=== PATIENT | male | born 1955 | race Caucasian/White ===

== ENCOUNTER 2016-12-19 10:18 | Inpatient (IN) ==
--- NOTE | 2016-12-19 10:53 | Emergency Department Note ---
START Narrative - START START: 61-year-old male presents to the emergency department with complaint of difficulty in breathing. Patient states that this began last evening and has been progressively worsening. He denies any significant chest pain. He does state that he has felt palpitations. Patient has had previous heart surgery and currently has a pacemaker. I briefly examined this patient and he is in no acute distress. EKG is unchanged. Labs and x-ray have been ordered.
[2016-12-19 10:58] LABS: Basophils # 0.1 K/mcL (0.0-0.2); Basophils % 0.4 %; Eosinophils % 0.1 %; Hematocrit 44.1 % (37.5-50.1); Hemoglobin 14.3 g/dL (12.9-16.9); Immature Granulocytes % 0.9 % (0-4); Lymphocytes % 7.1 %; Mean Corpuscular HGB Conc 32.4 g/dL (31.6-35.5); Mean Corpuscular Hemoglobin 29.7 pg (28.0-33.3); Mean Corpuscular Volume 91.5 fL (83.0-100.0); Mean Platelet Volume 10.4 fL (9.4-12.4); Monocytes # 0.8 K/mcL (0.0-1.3); Monocytes % 5.8 %; Neutrophils # 11.8 K/mcL (1.6-8.9); Platelet Count 331 K/mcL (140-400); Red Blood Count 4.82 M/mcL (4.19-5.50); Red Cell Distribution Width 14.6 % (11.5-14.5); Segmented Neutrophils % 85.7 %
[2016-12-19 11:04] LABS: INR 2.8
[2016-12-19] MEDS ORDERED: Ipratropium/Albuterol Neb 3 ML IH ONE (11:09)
[2016-12-19 11:15] LABS: Albumin 3.8 g/dL (3.5-5.0); Albumin/Globulin Ratio 0.7 (1.1-2.2); Bilirubin,Direct 0.4 mg/dL (0.0-0.5); Bilirubin,Indirect 0.4 mg/dL (0.0-1.2); Bilirubin,Total 0.8 mg/dL (0.2-1.2); Calcium 9.8 mg/dL (8.6-10.8); Globulin 5.1 g/dL (2.4-3.5); Potassium 4.4 mEq/L (3.5-4.5); Total Protein 8.9 g/dL (6.0-8.3)
[2016-12-19] MEDS ORDERED: Furosemide 40 MG/4 ML VIAL IVP ONE (11:36)
--- NOTE | 2016-12-19 11:40 | Emergency Department Note ---
Disposition Clinical Impression: Acute exacerbation of chronic obstructive airways disease, Acute on chronic combined systolic and diastolic CHF (congestive heart failure) Disposition: Admitted As Inpatient Condition: Fair Time of Disposition: 11:51 SOB HPI - General Chief Complaint: ED Shortness of Breath/Dyspnea Stated Complaint: BONI Time Seen by Provider: 12/19/16 10:50 Source: patient Limitations: no limitations Nursing Notes Reviewed: Yes Vital Signs Reviewed: Yes - History of Present Illness Patient presents to the ED with the chief complaint of shortness of breath, cough and chest pain. Patient has a history of CHF and COPD. States that for the last month he has been having gradually increasing shortness breath. He has had a productive white cough that has been treated with antibiotics off and on by his primary care physician without relief. He is having increasing exertional dyspnea, bilateral, symmetric leg edema and intermittent chest discomfort. He has had several bypass surgeries and multiple stents with his most recent in 2009. States his chest pain is not his anginal equivalent, but is more a heaviness from difficulty breathing. He has had a significant decrease in his functional capacity. No fever but has had some chills. No abdominal pain, nausea, vomiting or diarrhea. No rash. - Related Data Home Medications Medication Instructions Recorded Confirmed Amiodarone [Cordarone] 200 mg PO DAILY 09/06/15 12/19/16 Insulin Regular U-500 [HumuLIN R 0 unit SQ AD MDD Per Pump 09/06/15 12/19/16 U-500] Levothyroxine [Synthroid] 50 mcg PO HS 09/06/15 12/19/16 Metoprolol Succinate 100 mg PO DAILY 09/06/15 12/19/16 Nitroglycerin [Nitrostat] 0.4 mg SL Q5M PRN 09/06/15 12/19/16 Oxygen 2 l NS AD 09/06/15 12/19/16 Warfarin [Coumadin] 5 mg PO SUMOWEFRSA 09/06/15 12/19/16 Lisinopril [Zestril] 5 mg PO DAILY 11/13/15 12/19/16 Warfarin [Coumadin] 7.5 mg PO TUTH 11/13/15 12/19/16 Albuterol Sulfate [Albuterol 2 puff IH Q6HR PRN 03/14/16 12/19/16 Inhaler] Torsemide 100 mg PO BID 03/14/16 12/19/16 HYDROcodone/Acet 10/325 mg [Eunice 1 tab PO BID PRN 12/19/16 12/19/16 10-325 mg] Tamsulosin [Flomax] 0.4 mg PO DAILY 12/19/16 12/19/16 Previous Rx's Medication Instructions Recorded Aspirin 81 mg PO DAILY 30 Days 11/16/15 Budesonide/Formoterol 80/4.5 2 puff IH BIDR #1 inhaler 11/16/15 [Symbicort 80/4.5] Allergies Allergy/AdvReac Type Severity Reaction Status Date / Time metformin Allergy Hives Verified 12/19/16 10:37 pioglitazone [From Actos] Allergy Hives Verified 12/19/16 10:37 trazodone Allergy Hives Verified 12/19/16 10:37 All systems ED: reviewed and negative except as stated. Constitutional: Reports: chills Cardiovascular: Reports: chest pain, palpitations, dyspnea on exertion, orthopnea, edema Respiratory: Reports: cough, dyspnea Gastrointestinal: Denies: vomiting Musculoskeletal: Denies: back pain Past Medical History - Past Medical History Attestation: Yes The following information was validated with the patient. Source: patient Medical history: Reports: atrial fibrillation, cardiomyopathy, CHF, COPD, coronary artery disease, diabetes, hyperlipidemia, hypertension Surgical history: Reports: angioplasty/stent, coronary bypass (CABG), pacemaker/ AICD Psychiatric history: Reports: no psych history - Social History Smoking Status: Current every day smoker Smokeless Tobacco Status: No Alcohol use: Reports: none Drug use: Reports: none Physical Exam - General Limitations: no limitations General appearance: alert, in no apparent distress - Head Head exam: atraumatic, normocephalic, normal inspection - Eye Eye exam: Present: normal appearance, PERRL, EOMI - ENT ENT exam: normal exam, normal oropharynx, mucous membranes moist - Neck Neck exam: Present: normal inspection, full ROM, trachea midline - Chest Chest inspection: Present: normal inspection, symmetric chest wall rise - Respiratory Respiratory exam: Present: respiratory distress (mild tachypnea ), wheezes, other (scattered rales ). Absent: normal lung sounds bilaterally, accessory muscle use - Cardiovascular Cardiovascular exam: Present: regular rate, normal rhythm - Abdominal Exam Abdominal exam: Present: soft, Non-Tender, other (obese). Absent: tenderness, distention, guarding, rebound, rigidity - Extremities Exam Extremities exam: Present: normal inspection, full ROM. Absent: tenderness, pedal edema Course Course Narrative: Patient presenting with CHF and COPD exacerbation. On Coumadin for paroxysmal A. fib, has a pacemaker, no acute distress, but does appear to be an exacerbation. He does not need BiPAP or nitroglycerin this time. Will diurese with Lasix and admitted to the hospitalist service. Vital Signs Temperature 98.1 F 12/19/16 10:33 Pulse Rate 82 12/19/16 10:33 Respiratory Rate 14 12/19/16 10:33 Blood Pressure 101/77 12/19/16 10:33 O2 Sat by Pulse Oximetry 99 12/19/16 10:33 Temperature 97.9 F 12/19/16 19:12 Pulse Rate 80 12/19/16 19:12 Respiratory Rate 16 12/19/16 19:12 Blood Pressure 108/69 12/19/16 19:12 O2 Sat by Pulse Oximetry 100 12/19/16 19:12 Oxygen Delivery Oxygen Delivery Room Air Shortness of Breath/Dyspnea - Medical Records Medical records reviewed: Yes I reviewed the patient's medical records. - Lab Data Lab results reviewed: Yes I reviewed the patient's lab results. Result diagrams: 12/19/16 10:54 12/19/16 10:54 Lab Results 12/19/16 12/19/16 12/19/16 Range/Units 10:54 10:54 10:54 WBC 13.8 H (4.3-11.1) K/mcL RBC 4.82 (4.19-5.50) M/mcL Hgb 14.3 (12.9-16.9) g/dL Hct 44.1 (37.5-50.1) % MCV 91.5 (83.0-100.0) fL MCH 29.7 (28.0-33.3) pg MCHC 32.4 (31.6-35.5) g/dL RDW 14.6 H (11.5-14.5) % Plt Count 331 (140-400) K/mcL MPV 10.4 (9.4-12.4) fL Immature Gran % 0.9 (0-4) % Seg Neutrophils % 85.7 % Lymphocytes % 7.1 % Monocytes % 5.8 % Eosinophils % 0.1 % Basophils % 0.4 % Neutrophils # 11.8 H (1.6-8.9) K/mcL Lymphocytes # 1.0 (0.6-4.6) K/mcL Monocytes # 0.8 (0.0-1.3) K/mcL Eosinophils # 0.0 (0.0-0.6) K/mcL Basophils # 0.1 (0.0-0.2) K/mcL PT 31.0 H (9.4-12.1) Seconds INR 2.8 APTT 38.0 H (26.0-36.0) Seconds Sodium 133 L (136-145) mEq/L Potassium 4.4 (3.5-4.5) mEq/L Chloride 98 (98-109) mEq/L Carbon Dioxide 22 (19-29) mEq/L BUN 54 H (8-26) mg/dL Creatinine 1.91 H (0.72-1.25) mg/dL Est GFR ( Amer) 43 L (> 60) Est GFR (Non-Af Amer) 36 L (> 60) BUN/Creatinine Ratio 28 H (6-26) Glucose 110 H (70-99) mg/dL Calculated Osmolality 291 (280-300) Lactic Acid (0.5-2.2) mmol/L Calcium 9.8 (8.6-10.8) mg/dL Total Bilirubin 0.8 (0.2-1.2) mg/dL Direct Bilirubin 0.4 (0.0-0.5) mg/dL Indirect Bilirubin 0.4 (0.0-1.2) mg/dL AST 17 (5-34) Units/L ALT 19 (0-55) Units/L Alkaline Phosphatase 112 (38-126) Units/L Troponin I (0-0.03) ng/mL B-Natriuretic Peptide (0-100) pg/mL Serum Total Protein 8.9 H (6.0-8.3) g/dL Albumin 3.8 (3.5-5.0) g/dL Globulin 5.1 H (2.4-3.5) g/dL Albumin/Globulin Ratio 0.7 L (1.1-2.2) 12/19/16 12/19/16 12/19/16 Range/Units 10:54 10:54 11:13 WBC (4.3-11.1) K/mcL RBC (4.19-5.50) M/mcL Hgb (12.9-16.9) g/dL Hct (37.5-50.1) % MCV (83.0-100.0) fL MCH (28.0-33.3) pg MCHC (31.6-35.5) g/dL RDW (11.5-14.5) % Plt Count (140-400) K/mcL MPV (9.4-12.4) fL Immature Gran % (0-4) % Seg Neutrophils % % Lymphocytes % % Monocytes % % Eosinophils % % Basophils % % Neutrophils # (1.6-8.9) K/mcL Lymphocytes # (0.6-4.6) K/mcL Monocytes # (0.0-1.3) K/mcL Eosinophils # (0.0-0.6) K/mcL Basophils # (0.0-0.2) K/mcL PT (9.4-12.1) Seconds INR APTT (26.0-36.0) Seconds Sodium (136-145) mEq/L Potassium (3.5-4.5) mEq/L Chloride (98-109) mEq/L Carbon Dioxide (19-29) mEq/L BUN (8-26) mg/dL Creatinine (0.72-1.25) mg/dL Est GFR ( Amer) (> 60) Est GFR (Non-Af Amer) (> 60) BUN/Creatinine Ratio (6-26) Glucose (70-99) mg/dL Calculated Osmolality (280-300) Lactic Acid 1.7 (0.5-2.2) mmol/L Calcium (8.6-10.8) mg/dL Total Bilirubin (0.2-1.2) mg/dL Direct Bilirubin (0.0-0.5) mg/dL Indirect Bilirubin (0.0-1.2) mg/dL AST (5-34) Units/L ALT (0-55) Units/L Alkaline Phosphatase (38-126) Units/L Troponin I 0.03 (0-0.03) ng/mL B-Natriuretic Peptide 933 H (0-100) pg/mL Serum Total Protein (6.0-8.3) g/dL Albumin (3.5-5.0) g/dL Globulin (2.4-3.5) g/dL Albumin/Globulin Ratio (1.1-2.2) - Radiology Data Radiology results reviewed: Yes I reviewed the patient's radiology results. Chest X-Ray 12/19/16 10:50 IMPRESSION: 1. Cardiomegaly with mild vascular congestion. D/ / Keegan Hunt MD / Keegan Hunt MD Interpreting Provider: Keegan Hunt MD - EKG Data EKG attestation: Yes I reviewed and interpreted this EKG. EKG results narrative: Patient's rhythm, rate 80, QRS 219, QTC 554 Attestation Statement - Attestation Attestation: I examined this patient and my medical decision-making was reviewed with the Resident Physician. I agree with the documented findings, disposition and treatment plan as described except to the extent set forth below. CHF and COPD exacerbation. Steroids, DuoNeb, antibiotics, diuresis. Admission for further evaluation. I spent greater than 35 minutes of critical care time resuscitating this acutely ill male suffering from hypoxia. He required multiple medication interventions. This is excluding billable procedures.
[2016-12-19] MEDS ORDERED: Furosemide 20 MG/2 ML VIAL IVP ONE (11:41)
[2016-12-19] MEDS ORDERED: methylPREDNISolone 125 MG/2 ML VIAL IVP ONE (11:49)
[2016-12-19] MEDS ORDERED: Acetaminophen 325 MG TABLET PO PRN (13:44)
[2016-12-19] MEDS ORDERED: Naloxone 0.4 MG/ML INJ IVP PRN (13:44)
[2016-12-19] MEDS ORDERED: *HR* Morphine 2 MG/ML SYRINGE IVP PRN (13:44)
[2016-12-19] MEDS ORDERED: Ondansetron 4 MG/2 ML VIAL IVP PRN (13:44)
[2016-12-19] MEDS ORDERED: Nitroglycerin 0.4 MG TAB.SUBL SL PRN (13:47)
[2016-12-19] MEDS ORDERED: D5% in Water 1,000 ML IVC PRN (13:49)
[2016-12-19] MEDS ORDERED: Dextrose Gel 15 GM PO PRN ×2 (13:49)
[2016-12-19] MEDS ORDERED: *HR* Dextrose 50 % in Water (Syg) 50 ML SYRINGE IVP PRN (13:49)
[2016-12-19] MEDS ORDERED: NON-FORMULARY MEDICATION 1 EACH EACH (Oxygen [Oxygen] 2 L) NS SCH (14:00)
--- NOTE | 2016-12-19 15:10 | Internal Med History&Physical ---
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 no infiltrates noticed no need of abx (2) Acute on chronic systolic (congestive) heart failure Current visit: No Status: Acute Reviewed his 2D Echo from 03/2016 showing LVEF 25 % Severe ischemic cardiomyopathy will repeat another 2 D Echo now started him IV Lasix 40mg BID Strict I & O Cont home med B gemini and ACEI (3) Atrial fibrillation Current visit: No Status: Chronic Rate controlled with Amiodarone and Metoprolol on COumadin for anticoag Qualifiers: Atrial fibrillation type: paroxysmal Qualified Code(s): I48.0 - Paroxysmal atrial fibrillation (4) CAD (coronary artery disease) Current visit: No Status: Chronic resumed home meds Qualifiers: Coronary Disease-Associated Artery/Lesion type: unspecified vessel or lesion type [place] vs. transplanted heart: [place] heart Associated angina: without angina Qualified Code(s): I25.10 - Atherosclerotic heart disease of [place] coronary artery without angina pectoris (5) Hypothyroidism Current visit: No Status: Chronic resumed home med Qualifiers: Hypothyroidism type: unspecified Qualified Code(s): E03.9 - Hypothyroidism , unspecified (6) DM (diabetes mellitus) Current visit: No Status: Chronic on ISS + Levemir will check HbA1C in AM Qualifiers: Diabetes mellitus type: type 2 Diabetes mellitus complication status: with unspecified complications Diabetes mellitus skilled nursing insulin use: with senior animator use Qualified Code(s): E11.8 - Type 2 diabetes mellitus with unspecified complications (7) DVT prophylaxis Current visit: No Status: Acute on COumadin (8) Obesity, Class III, BMI 40-49.9 (morbid obesity) Current visit: No Status: Acute Counseled to loose weight (9) CKD (chronic kidney disease) Current visit: No Status: Chronic stable Cr Qualifiers: Chronic kidney disease stage: stage 3 (moderate) Qualified Code(s): N18.3 - Chronic kidney disease, stage 3 (moderate) Internal Medicine - H&P: HPI Chief complaint: Shortness of breath Admitted From: Emergency Dept Plans for Post Hospital Care: Home History of present illness: Mr. Lance is a 61 year old male with known PMH of Severe systolic CHF / Ischemic cardiomyopathy, chronic heavy smoker, COPD and chronic hypoxic respiratory failure with home O2 dependent at 2 lit, CAD s/p CABG presnted to ER c/o worsening shortness of breath with cough and yellowish expectoration. He denied any CP . No abd pain. No nausea / vomiting. Past Med Surg Social Fam HX - Past Medical History Medical history: atrial fibrillation, cardiomyopathy, CHF, COPD, coronary artery disease, diabetes, hyperlipidemia, hypertension Psychiatric history: no psych history - Past Surgical History Surgical History: angioplasty/stent, coronary bypass (CABG), pacemaker/AICD - Social History Smoking Status: Current every day smoker Smokeless Tobacco Status: No Alcohol use: none Drug use: none - Family History Father Hx Family Cardiac Disorders: Yes (CHF, multiple heart attacks) Internal Medicine - H&P: Meds Amiodarone [Cordarone] 200 mg PO DAILY 09/06/15 [History] Insulin Regular U-500 [HumuLIN R U-500] 0 unit SQ AD MDD Per Pump 09/06/15 [ History] Levothyroxine [Synthroid] 50 mcg PO HS 09/06/15 [History] Metoprolol Succinate 100 mg PO DAILY 09/06/15 [History] Nitroglycerin [Nitrostat] 0.4 mg SL Q5M PRN 09/06/15 [History] Oxygen 2 l NS AD 09/06/15 [History] Warfarin [Coumadin] 5 mg PO SUMOWEFRSA 09/06/15 [History] Lisinopril [Zestril] 5 mg PO DAILY 11/13/15 [History] Warfarin [Coumadin] 7.5 mg PO TUTH 11/13/15 [History] Aspirin 81 mg PO DAILY 30 Days 11/16/15 [Rx] Budesonide/Formoterol 80/4.5 [Symbicort 80/4.5] 2 puff IH BIDR #1 inhaler 11/15 [Rx] Albuterol Sulfate [Albuterol Inhaler] 2 puff IH Q6HR PRN 03/14/16 [History] Torsemide 100 mg PO BID 03/14/16 [History] HYDROcodone/Acet 10/325 mg [Bishop 10-325 mg] 1 tab PO BID PRN 12/19/16 [History] Tamsulosin [Flomax] 0.4 mg PO DAILY 12/19/16 [History] 3 Allergy/AdvReac Type Severity Reaction Status Date / Time metformin Allergy Hives Verified 12/19/16 10:37 pioglitazone [From Actos] Allergy Hives Verified 12/19/16 10:37 trazodone Allergy Hives Verified 12/19/16 10:37 All Systems PM: A 10-system review of systems was performed and is negative for pertinent findings except as documented above in the HPI. Review of systems: All the systems are reviewed everything is benign except the systems and symptoms I mentioned in the history of present illness - Constitutional Vitals: Temp Pulse Resp BP Pulse Ox 97.6 F 87 14 95/56 93 12/19/16 13:05 12/19/16 13:05 12/19/16 13:05 12/19/16 13:05 12/19/16 13:30 General appearance: Present: mild distress, A&O X 3, answers questions appropriately - Head Head exam: Present: atraumatic, normal inspection - Respiratory Respiratory exam: Present: decreased breath sounds, respiratory distress (mild) , wheezes. Absent: rales, rhonchi - Cardiovascular Cardiovascular exam: Present: gallop, RRR, +S1, +S2. Absent: systolic murmur - GI/Abdominal GI/Abdominal exam: Present: normal bowel sounds, soft. Absent: rebound, rigid, tenderness - Extremities Exam Extremities exam: Present: pedal edema (2 +). Absent: calf tenderness, tenderness - Neurological Exam Neurological exam: Present: alert, oriented X3 - Psychiatric Psychiatric exam: Present: normal affect, normal mood Internal Med - H&P Results - Labs CBC & Chem 7: 12/19/16 10:54 12/19/16 10:54 Labs: Cardiac Enzymes 12/19/16 Range/Units 13:55 Troponin I 0.02 (0-0.03) ng/mL
[2016-12-19] MEDS: Budesonide/Formoterol 80/4.5 MDI IH SCH ×2 (15:23→20:15)
[2016-12-19] MEDS: Ipratropium/Albuterol Neb 3 ML IH SCH ×3 (15:31→23:17)
[2016-12-19] MEDS: *HR* HYDROcodone/Acet 5/325 mg TABLET PO PRN (17:43)
[2016-12-19] MEDS: Insulin LISPRO 300 UNITS/3 ML VIAL SQ SCH (17:44)
[2016-12-19] MEDS: Furosemide 40 MG/4 ML VIAL IVP SCH (17:44)
[2016-12-19] MEDS: MethylPREDNISolone 40 MG/ML VIAL IVP SCH (17:45)
[2016-12-19] MEDS ORDERED: *HR* Warfarin 7.5 MG TABLET PO SCH (18:00)
[2016-12-19] MEDS ORDERED: Warfarin perPT PO PRN (18:00)
--- NOTE | 2016-12-19 18:11 | Electrocardiograph Report ---
[place] [id number] Test Date: 2016-12-19 Pat Name: Solitario Lance Department: 104 Room: [facility] Gender: M Public Address Technician: MSC : [id number] Requested By: Joey Goodrich Order Number: [id number] Reading MD: Zaira Pop Measurements Intervals [place] Rate: 80 P: IA: 0 QRS: 263 QRSD: 219 T: 71 QT: 518 QTc: 554 Interpretive Statements ELECTRONIC VENTRICULAR PACEMAKER ABNORMAL RHYTHM ECG Electronically Signed On 12-19-2016 18:09:52 EDT by Zaira Pop
[2016-12-19] MEDS ORDERED: Insulin LISPRO 300 UNITS/3 ML VIAL SQ SCH (21:00)
[2016-12-19] MEDS: Famotidine 20 MG TABLET PO SCH (21:54)
[2016-12-20] MEDS: MethylPREDNISolone 40 MG/ML VIAL IVP SCH ×4 (00:30→16:45)
[2016-12-20] MEDS: Ipratropium/Albuterol Neb 3 ML IH SCH ×5 (04:15→20:33)
[2016-12-20 06:15] LABS: INR 3.5; Prothrombin Time 38.8 Seconds (9.4-12.1)
[2016-12-20 06:36] LABS: Basophils % 0.2 %; Hematocrit 43.3 % (37.5-50.1); Hemoglobin 14.1 g/dL (12.9-16.9); Lymphocytes # 0.7 K/mcL (0.6-4.6); Lymphocytes % 5.8 %; Mean Corpuscular HGB Conc 32.6 g/dL (31.6-35.5); Mean Corpuscular Hemoglobin 29.7 pg (28.0-33.3); Mean Corpuscular Volume 91.4 fL (83.0-100.0); Mean Platelet Volume 10.9 fL (9.4-12.4); Monocytes # 0.3 K/mcL (0.0-1.3); Monocytes % 2.8 %; Neutrophils # 10.5 K/mcL (1.6-8.9); Platelet Count 309 K/mcL (140-400); Red Blood Count 4.74 M/mcL (4.19-5.50); Red Cell Distribution Width 14.5 % (11.5-14.5); Segmented Neutrophils % 89.2 %
[2016-12-20 06:37] LABS: Calcium 9.7 mg/dL (8.6-10.8); Magnesium 2.4 mg/dL (1.6-2.6); Potassium 4.8 mEq/L (3.5-4.5)
[2016-12-20] MEDS: Insulin LISPRO 300 UNITS/3 ML VIAL SQ SCH ×3 (07:54→16:45)
[2016-12-20] MEDS: Aspirin 81 MG TAB.CHEW PO SCH (08:38)
[2016-12-20] MEDS: Furosemide 40 MG/4 ML VIAL IVP SCH ×2 (08:38→16:45)
[2016-12-20] MEDS: Famotidine 20 MG TABLET PO SCH ×2 (08:38→20:50)
[2016-12-20] MEDS: *HR* Amiodarone 200 MG TABLET PO SCH (08:38)
[2016-12-20] MEDS: *HR* HYDROcodone/Acet 5/325 mg TABLET PO PRN ×2 (08:38→16:45)
[2016-12-20] MEDS: Metoprolol XL (24 HR) Succ 50 MG TAB.ER.24H PO SCH (08:38)
[2016-12-20] MEDS: Budesonide/Formoterol 80/4.5 MDI IH SCH ×2 (10:13→20:33)
--- NOTE | 2016-12-20 13:39 | Internal Med Progress Note ---
<Alfred Riojas P - Last Filed: 12/20/16 17:39> Date of Encounter: 12/20/16 - Constitutional Vitals: Temp Pulse Resp BP Pulse Ox 97.5 F L 80 20 100/64 100 12/20/16 16:10 12/20/16 16:10 12/20/16 16:10 12/20/16 16:10 12/20/16 16:10 Internal Medicine: Result - Labs CBC & Chem 7: 12/20/16 05:45 12/20/16 05:45 Labs: Short CBC 12/20/16 Range/Units 05:45 WBC 11.8 H (4.3-11.1) K/mcL Hgb 14.1 (12.9-16.9) g/dL Hct 43.3 (37.5-50.1) % Plt Count 309 (140-400) K/mcL Neutrophils # 10.5 H (1.6-8.9) K/mcL BMP 12/20/16 05:45 Sodium 131 L Potassium 4.8 H Chloride 98 Carbon Dioxide 22 BUN 56 H Creatinine 1.86 H Glucose 235 H Calcium 9.7 Cardiac Enzymes 12/19/16 Range/Units 19:11 Troponin I 0.02 (0-0.03) ng/mL - ABG Interpretation ABG results: PT/INR, D-dimer PT 38.8 Seconds (9.4-12.1) H 12/20/16 05:45 Consult Discharge Plan - Plan Referrals: Lilo Beltran MD [Primary Care Provider] - - Attending Attestation I examined this patient and my medical decision-making was reviewed with the Resident Physician. I agree with the documented findings, disposition and treatment plan as described except to the extent set forth below. <Cris Johnson - Last Filed: 12/20/16 18:14> Date of Encounter: 12/20/16 Time of Encounter: 13:39 - Assessment and plan (1) COPD exacerbation Current Visit: No Status: Acute Assessment and plan: Pt taking of nasal cannula without notifying staff States SOB improving. Continue management Counseled pt on importance of compliance of medication (2) Acute on chronic systolic (congestive) heart failure Current Visit: No Status: Acute Assessment and plan: 2D Echo from 03/2016 showing LVEF 25 % Severe ischemic cardiomyopathy Continue medical management and Strict I & O (3) Atrial fibrillation Current Visit: No Status: Chronic Assessment and plan: Rate controlled with Amiodarone and Metoprolol Continue coumadin, per pharmacy protocol Qualifiers: Atrial fibrillation type: paroxysmal Qualified Code(s): I48.0 - Paroxysmal atrial fibrillation (4) Hypothyroidism Current Visit: No Status: Chronic Assessment and plan: Continue home medication Qualifiers: Hypothyroidism type: unspecified Qualified Code(s): E03.9 - Hypothyroidism , unspecified (5) DVT prophylaxis Current Visit: No Status: Acute Assessment and plan: Coumadin (6) DM (diabetes mellitus) Current Visit: No Status: Chronic Assessment and plan: Elevated blood glucose levels, per RN RN notified resident MD approx. 12:00 and 1 PM Basal insulin regimen added with insulin sliding scale Continue hourly accuchecks Qualifiers: Diabetes mellitus type: type 2 Diabetes mellitus complication status: with unspecified complications Diabetes mellitus shelter insulin use: with terminal carman use Qualified Code(s): E11.8 - Type 2 diabetes mellitus with unspecified complications (7) CKD (chronic kidney disease) Current Visit: No Status: Chronic Assessment and plan: Continue to monitor kidney markers BMP for AM Qualifiers: Chronic kidney disease stage: stage 3 (moderate) Qualified Code(s): N18.3 - Chronic kidney disease, stage 3 (moderate) (8) Obesity, Class III, BMI 40-49.9 (morbid obesity) Current Visit: No Status: Acute Assessment and plan: Plan for counseling on importance of weight loss and exercise - Subjective Interval history: The patient took nasal cannula off on own volition, without notifying staff. Resident MD recommended pt wear it continually PM Patient refuses to take IV solumedrol to nurse and to resident MD. - Constitutional Vitals: Temp Pulse Resp BP Pulse Ox 97.6 F 82 18 100/62 98 12/20/16 10:41 12/20/16 10:41 12/20/16 10:41 12/20/16 10:41 12/20/16 10:41 General appearance: Present: mild distress, A&O X 3, morbidly obese, pleasant, answers questions appropriately Exam: speaking without difficulty - Head Head exam: Present: atraumatic, normocephalic - Neck Neck exam general surgery: Present: supple Additional comments: thick neck, no restriction in motion - Respiratory Respiratory exam: Present: decreased breath sounds, wheezes. Absent: accessory muscle use, chest wall tenderness, respiratory distress Additional comments: Nasal cannula off, beside patient on bed - Cardiovascular Cardiovascular exam: Present: distant heart sounds, RRR, +S1, +S2. Absent: rubs , tachycardia - GI/Abdominal GI/Abdominal exam: Present: normal bowel sounds, soft, no peritoneal signs. Absent: distended, tenderness Internal Medicine: Result - Labs CBC & Chem 7: 12/20/16 05:45 12/20/16 05:45 Labs: Short CBC 12/20/16 Range/Units 05:45 WBC 11.8 H (4.3-11.1) K/mcL Hgb 14.1 (12.9-16.9) g/dL Hct 43.3 (37.5-50.1) % Plt Count 309 (140-400) K/mcL Neutrophils # 10.5 H (1.6-8.9) K/mcL BMP 12/20/16 05:45 Sodium 131 L Potassium 4.8 H Chloride 98 Carbon Dioxide 22 BUN 56 H Creatinine 1.86 H Glucose 235 H Calcium 9.7 Cardiac Enzymes 12/19/16 12/19/16 Range/Units 13:55 19:11 Troponin I 0.02 0.02 (0-0.03) ng/mL - ABG Interpretation ABG results: PT/INR, D-dimer PT 38.8 Seconds (9.4-12.1) H 12/20/16 05:45
[2016-12-20] MEDS ORDERED: Insulin DETEMIR 100 UNIT/ML X5UNITS SQ ONE (14:21)
[2016-12-20] MEDS ORDERED: Insulin LISPRO 300 UNITS/3 ML VIAL SQ SCH (14:22)
[2016-12-20] MEDS ORDERED: *HR* Warfarin 5 MG TABLET PO SCH (18:00)
[2016-12-20] MEDS: Insulin DETEMIR 100 UNIT/ML X5UNITS SQ SCH (20:50)
[2016-12-21] MEDS: Ipratropium/Albuterol Neb 3 ML IH SCH ×4 (00:33→11:23)
[2016-12-21] MEDS: MethylPREDNISolone 40 MG/ML VIAL IVP SCH ×3 (00:39→11:44)
[2016-12-21 03:27] LABS: Basophils % 0.1 %; Hematocrit 41.9 % (37.5-50.1); Hemoglobin 13.8 g/dL (12.9-16.9); Immature Granulocytes % 2.1 % (0-4); Lymphocytes # 0.7 K/mcL (0.6-4.6); Mean Corpuscular HGB Conc 32.9 g/dL (31.6-35.5); Mean Corpuscular Hemoglobin 30.3 pg (28.0-33.3); Mean Corpuscular Volume 92.1 fL (83.0-100.0); Mean Platelet Volume 10.6 fL (9.4-12.4); Monocytes % 5.6 %; Neutrophils # 15.3 K/mcL (1.6-8.9); Platelet Count 283 K/mcL (140-400); Red Blood Count 4.55 M/mcL (4.19-5.50); Red Cell Distribution Width 14.6 % (11.5-14.5); Segmented Neutrophils % 88.2 %
[2016-12-21 03:33] LABS: Prothrombin Time 63.8 Seconds (9.4-12.1)
[2016-12-21 03:34] LABS: INR 5.7
[2016-12-21 03:40] LABS: Calcium 9.4 mg/dL (8.6-10.8)
[2016-12-21 03:45] LABS: Potassium 5.2 mEq/L (3.5-4.5)
[2016-12-21] MEDS ORDERED: Saline Nasal Spray 44 ML BOTTLE NS PRN (04:38)
[2016-12-21] MEDS: Budesonide/Formoterol 80/4.5 MDI IH SCH (07:49)
--- NOTE | 2016-12-21 07:55 | Internal Med Progress Note ---
Date of Encounter: 12/21/16 Time of Encounter: 07:56 - Assessment and plan (1) COPD exacerbation Current Visit: No Status: Acute (2) Acute on chronic systolic (congestive) heart failure Current Visit: No Status: Acute (3) Atrial fibrillation Current Visit: No Status: Chronic Qualifiers: Atrial fibrillation type: paroxysmal Qualified Code(s): I48.0 - Paroxysmal atrial fibrillation (4) Hypothyroidism Current Visit: No Status: Chronic Qualifiers: Hypothyroidism type: unspecified Qualified Code(s): E03.9 - Hypothyroidism , unspecified (5) DVT prophylaxis Current Visit: No Status: Acute (6) DM (diabetes mellitus) Current Visit: No Status: Chronic Qualifiers: Diabetes mellitus type: type 2 Diabetes mellitus complication status: with unspecified complications Diabetes mellitus penitentiary insulin use: with penitentiary use Qualified Code(s): E11.8 - Type 2 diabetes mellitus with unspecified complications (7) CKD (chronic kidney disease) Current Visit: No Status: Chronic Qualifiers: Chronic kidney disease stage: stage 3 (moderate) Qualified Code(s): N18.3 - Chronic kidney disease, stage 3 (moderate) (8) Obesity, Class III, BMI 40-49.9 (morbid obesity) Current Visit: No Status: Acute - Subjective Interval history: The patient took nasal cannula off on own volition, without notifying staff. Resident MD recommended pt wear it continually PM Patient refuses to take IV solumedrol to nurse and to resident MD. - Constitutional Vitals: Temp Pulse Resp BP Pulse Ox 97.6 F 80 20 91/60 94 12/21/16 07:27 12/21/16 07:27 12/21/16 07:50 12/21/16 07:27 12/21/16 07:50 General appearance: Present: mild distress, A&O X 3, morbidly obese, pleasant, answers questions appropriately Internal Medicine: Result - Labs CBC & Chem 7: 12/21/16 03:04 12/21/16 03:04 Labs: Short CBC 12/21/16 Range/Units 03:04 WBC 17.4 H (4.3-11.1) K/mcL Hgb 13.8 (12.9-16.9) g/dL Hct 41.9 (37.5-50.1) % Plt Count 283 (140-400) K/mcL Neutrophils # 15.3 H (1.6-8.9) K/mcL BMP 12/21/16 03:04 Sodium 127 L Potassium 5.2 H Chloride 97 L Carbon Dioxide 19 BUN 68 H Creatinine 2.01 H Glucose 224 H Calcium 9.4 - ABG Interpretation ABG results: PT/INR, D-dimer PT 63.8 Seconds (9.4-12.1) H* D 12/21/16 03:04 Consult Discharge Plan - Plan Referrals: Lilo Beltran MD [Primary Care Provider] -
[2016-12-21] MEDS: Insulin LISPRO 300 UNITS/3 ML VIAL SQ SCH ×2 (08:09→11:44)
[2016-12-21] MEDS: Furosemide 40 MG/4 ML VIAL IVP SCH (08:11)
[2016-12-21] MEDS: Insulin DETEMIR 100 UNIT/ML X5UNITS SQ SCH (10:46)
[2016-12-21] MEDS: Famotidine 20 MG TABLET PO SCH (10:50)
[2016-12-21] MEDS: Aspirin 81 MG TAB.CHEW PO SCH (10:51)
[2016-12-21] MEDS: *HR* Amiodarone 200 MG TABLET PO SCH (10:51)
[2016-12-21 11:25] VITALS: BP 92/60
--- NOTE | 2016-12-21 11:36 | Discharge Summary ---
<AlexJohannaCris - Last Filed: 12/21/16 15:18> Date of Encounter: 12/21/16 Time of Encounter: 11:32 - Discharge Diagnosis (1) COPD exacerbation Priority: Primary Status: Resolved (2) Acute on chronic systolic (congestive) heart failure Priority: Primary Status: Resolved (3) Atrial fibrillation Priority: Secondary Status: Chronic Qualifiers: Atrial fibrillation type: chronic Qualified Code(s): I48.2 - Chronic atrial fibrillation (4) Hypothyroidism Priority: Secondary Status: Chronic Qualifiers: Hypothyroidism type: unspecified Qualified Code(s): E03.9 - Hypothyroidism , unspecified (5) DM (diabetes mellitus) Priority: Secondary Status: Chronic Qualifiers: Diabetes mellitus type: type 2 Diabetes mellitus complication status: with unspecified complications Diabetes mellitus termination clerk insulin use: with termination clerk use Qualified Code(s): E11.8 - Type 2 diabetes mellitus with unspecified complications (6) CKD (chronic kidney disease) Priority: Secondary Status: Chronic Qualifiers: Chronic kidney disease stage: stage 3 (moderate) Qualified Code(s): N18.3 - Chronic kidney disease, stage 3 (moderate) (7) Obesity, Class III, BMI 40-49.9 (morbid obesity) Priority: Secondary Status: Chronic (8) DVT prophylaxis Priority: Secondary Status: Acute (9) Tobacco abuse counseling Priority: Secondary Status: Chronic - Discharge Medications Prescriptions: Nicotine Patch [Nicoderm] 21 mg TD DAILY #30 patch.td24 Home Medications: Amiodarone [Cordarone] 200 mg PO DAILY 09/06/15 [History] Levothyroxine [Synthroid] 50 mcg PO HS 09/06/15 [History] Metoprolol Succinate 100 mg PO DAILY 09/06/15 [History] Nitroglycerin [Nitrostat] 0.4 mg SL Q5M PRN 09/06/15 [History] Oxygen 2 l NS AD 09/06/15 [History] Warfarin [Coumadin] 5 mg PO SUMOWEFRSA 09/06/15 [History] Warfarin [Coumadin] 7.5 mg PO TUTH 11/13/15 [History] Aspirin 81 mg PO DAILY 30 Days tab.chew 11/16/15 [Rx] Budesonide/Formoterol 80/4.5 [Symbicort 80/4.5] 2 puff IH BIDR #1 inhaler 11/15 [Rx] Albuterol Sulfate [Albuterol Inhaler] 2 puff IH Q6HR PRN 03/14/16 [History] Torsemide 100 mg PO BID 03/14/16 [History] HYDROcodone/Acet 10/325 mg [[place] 10-325 mg] 1 tab PO BID PRN 12/19/16 [History] Tamsulosin [Flomax] 0.4 mg PO DAILY 12/19/16 [History] Cholecalciferol (D-3) [Vitamin D] 1,000 unit PO DAILY 12/20/16 [History] Insulin Aspart Prot/Insuln Asp [Novolog Mix 70-30 Flexpen Syrn] 40 unit SQ 1700 12/20/16 [History] Insulin Aspart Prot/Insuln Asp [Novolog Mix 70-30 Flexpen Syrn] 60 unit SQ QAM 12/20/16 [History] Meclizine HCl [Verticalm] 25 mg PO DAILY PRN 12/20/16 [History] Lisinopril [Zestril] 5 mg PO DAILY tablet 12/21/16 [Rx] Nicotine Patch [Nicoderm] 21 mg TD DAILY #30 patch.td24 12/21/16 [Rx] Allergies/Adverse Reactions: 3 Allergy/AdvReac Type Severity Reaction Status Date / Time metformin Allergy Hives Verified 12/19/16 10:37 pioglitazone [From Actos] Allergy Hives Verified 12/19/16 10:37 trazodone Allergy Hives Verified 12/19/16 10:37 Procedures/tests Complete & Pending: Chest X-Ray 12/19/16 10:50 IMPRESSION: 1. Cardiomegaly with mild vascular congestion. D/ / Keegan Hunt MD / Keegan Hunt MD Interpreting Provider: Keegan Hunt MD Date of admission: 12/19/16 13:44 Primary care physician: Lilo Beltran, Discharging clinician: Cris Johnson Anticipated date of discharge: 12/21/16 - Patient Status Disposition: Home, Self-Care Condition: Fair Overall status at discharge: patient is progressing back to baseline - Discharge Instructions Instructions: Nicotine (Absorbed through the skin), Diabetes Mellitus Type 2 in Adults (DC), Chronic Obstructive Pulmonary Disease (DC) Follow Up With: Lilo Beltran MD [Primary Care Provider] - 12/25/16 10:15 am Additional Instructions: -Your INR was elevated on your day of discharge. It is expressed as a number without units. Your INR was at 5.7 upon discharge. -The longer it takes the blood to clot, the higher your INR. The target INR range depends upon the clinical situation. In most cases the target INR range will be between 2 and 3. -If the INR is below the target range (ie, under-anticoagulated), there is an increased risk of clotting. On the other hand, if the INR is above the target range (ie, over-anticoagulated), there is an increased risk of bleeding. -Please hold your coumadin for two days and resume your usual dose on Sunday. Additionally, have your INR checked within 3-4 days. -Please resume your home medications. -Please continue to use your oxygen at all times at home. -We discussed the importance of smoking cessation and we have prescribed a nicotine patch for your use. Apply one patch each morning to any non-hairy skin site; rotate the site daily to avoid skin irritation, the most common side effect. -Remove and replace the patch with a new one at bedtime. However, if leaving the patch on overnight is causing the frequently reported side effects of insomnia and vivid dreams, replace the patch the next morning. Smoking cessation rates are similar whether the patch is left on for 24 hours or taken off at night -When the patch is removed at night, substantial plasma levels of nicotine are reached 30 minutes to three hours after a new patch is applied in the morning. When to seek help If there are obvious or subtle signs of bleeding, including the following, please proceed to the emergency room, immediately. -Persistent nausea, stomach upset, or vomiting blood or other material that looks like coffee grounds -Headaches, dizziness, or weakness -Nosebleeds -Dark red or brown urine -Blood in the bowel movement or dark-colored stool -Pain, swelling, or black and purple skin (bruising) -A serious fall or head injury, even if there are no other symptoms It is also important to notify your primary care provider if any of the following occurs: -Bleeding from the gums after brushing the teeth -Swelling or pain at an injection site -Excessive menstrual bleeding or bleeding between menstrual periods -Diarrhea, vomiting, or inability to eat for more than 24 hours -Fever (temperature greater than 100.4F or 38C), which could be a sign of infection that might alter the INR -Are in a car accident, or have another type of serious injury that could cause bleeding -A new medication prescribed by another clinician, because some medications can alter the INR in patients taking warfarin - Diet and Activity Activity: ambulate only with your walker, increase activity as tolerated, wear oxygen at all times Diet: low fat, low cholesterol, low salt diet Interval History: No acute events overnight. When resident MD visited, pt has removed nasal cannula. No difficulty speaking. No SOB. Hospital course: Mr. Lance is a 61 year old male with a medical history atrial fibrillation, cardiomyopathy, CHF, COPD, coronary artery disease, diabetes, hyperlipidemia and hypertension. The patient's surgical history included angioplasty/stent, coronary bypass (CABG), pacemaker/AICD History: Patient presented to the ED with the chief complaint of shortness of breath, cough (yellowish expectoration), exertional dyspnea, bilateral, symmetric leg edema and intermittent chest discomfort. Stated his chest pain was not his anginal equivalent, but is more a heaviness from difficulty breathing. No fever but has had some chills. No abdominal pain, nausea, vomiting or diarrhea. No rash. Inpatient Tests/ Procedures : Pt was on continuous telemetry. Serial troponin levels were drawn and negative x 2. Course: Patient improved with medical management and maintained oxygen saturation above 92%. Regarding co-morbid conditions, patient's scheduled Accuchecks returned with elevated levels periodically over course of hospitalization, that responded to insulin regimen adjustment. Patient was counseled on importance of smoking cessation and sated he was amenable to begin nicotine patch as outpatient. The patient's Afib was monitored, however INR levels were elevated at 5.7 on discharge, with no evidence of bleed at time of discharge. The family and patient was extensively counseled to follow-up outpatient for assurance to therapeutic levels through outpatient testing. Family and patient verbalized understanding, and family () directly repeated instructions regarding INR testing back to resident MD. - Time Spent with Patient Total time spent providing and/or coordinating discharge services: - Constitutional Vitals: Temp Pulse Resp BP Pulse Ox 97.4 F L 92 20 92/60 94 12/21/16 11:17 12/21/16 11:17 12/21/16 11:23 12/21/16 11:17 12/21/16 11:23 General appearance: Present: mild distress, A&O X 3, morbidly obese, pleasant, answers questions appropriately Exam: no difficulty in speech, nasal cannula off in morning - Head Head exam: Present: atraumatic, normocephalic - Eye Eye exam: Present: sclera anicteric. Absent: conjuntiva pink - Respiratory Respiratory exam: Present: CTAB. Absent: accessory muscle use, rales (faint rales on L lower base), rhonchi, wheezes - Cardiovascular Cardiovascular exam: Present: distant heart sounds, +S1, +S2. Absent: gallop, rubs, tachycardia - GI/Abdominal GI/Abdominal exam: Present: normal bowel sounds, soft, no peritoneal signs. Absent: distended (obese), tenderness <Beulah,Alfred P - Last Filed: 12/21/16 17:58> Date of Encounter: 12/21/16 Date of admission: 12/19/16 13:44 Primary care physician: Lilo Beltran, Hospital course: Mr. Lance is a 61 year old male - Time Spent with Patient Total time spent providing and/or coordinating discharge services: - Constitutional Vitals: Temp Pulse Resp BP Pulse Ox 97.4 F L 92 20 92/60 94 12/21/16 11:17 12/21/16 11:17 12/21/16 11:23 12/21/16 11:17 12/21/16 11:23 - Attending Attestation I examined this patient and my medical decision-making was reviewed with the Resident Physician. I agree with the documented findings, disposition and treatment plan as described except to the extent set forth below.
[2016-12-21] MEDS: Metoprolol XL (24 HR) Succ 50 MG TAB.ER.24H PO SCH (12:00)
[2016-12-21] MEDS ORDERED: FLUARIX QUAD 2017-18 36MOS UP/PF 0.5 ML SYRINGE IM ONE (12:04)
[2016-12-21] MEDS: *HR* HYDROcodone/Acet 5/325 mg TABLET PO PRN (12:12)
== END 2016-12-21 12:40 | disposition home or self-care (01) | DRG 190 ==
LOC: EMEROO 10:18 → 2ANU 10:18
PROVIDERS: ADMIT Family Medicine; ATTEND Internal Medicine

== ENCOUNTER 2016-12-26 10:09 | Inpatient (IN) ==
[2016-12-26] MEDS ORDERED: Nitroglycerin 0.4 MG TAB.SUBL SL PRN ×2 (10:39→17:11)
[2016-12-26 10:58] LABS: Basophils # 0.1 K/mcL (0.0-0.2); Basophils % 0.3 %; Eosinophils # 0.1 K/mcL (0.0-0.6); Eosinophils % 0.3 %; Hematocrit 42.9 % (37.5-50.1); Immature Granulocytes % 2.3 % (0-4); Lymphocytes # 1.5 K/mcL (0.6-4.6); Mean Corpuscular HGB Conc 32.6 g/dL (31.6-35.5); Mean Corpuscular Hemoglobin 29.6 pg (28.0-33.3); Mean Corpuscular Volume 90.7 fL (83.0-100.0); Mean Platelet Volume 10.5 fL (9.4-12.4); Monocytes # 1.6 K/mcL (0.0-1.3); Monocytes % 8.3 %; Neutrophils # 15.5 K/mcL (1.6-8.9); Platelet Count 277 K/mcL (140-400); Red Blood Count 4.73 M/mcL (4.19-5.50); Red Cell Distribution Width 14.6 % (11.5-14.5); Segmented Neutrophils % 80.8 %
[2016-12-26 11:10] LABS: Calcium 9.2 mg/dL (8.6-10.8)
[2016-12-26 11:11] LABS: INR 2.9; Prothrombin Time 31.7 Seconds (9.4-12.1)
[2016-12-26 11:12] LABS: Albumin 3.5 g/dL (3.5-5.0); Albumin/Globulin Ratio 0.9 (1.1-2.2); Bilirubin,Direct 0.7 mg/dL (0.0-0.5); Bilirubin,Indirect 0.6 mg/dL (0.0-1.2); Bilirubin,Total 1.3 mg/dL (0.2-1.2); Globulin 3.8 g/dL (2.4-3.5); Total Protein 7.3 g/dL (6.0-8.3)
[2016-12-26 11:14] LABS: Activated Partial Thrombo Time 32.3 Seconds (26.0-36.0)
[2016-12-26] MEDS ORDERED: Furosemide 40 MG/4 ML VIAL IVP ONE (11:50)
[2016-12-26] MEDS ORDERED: Levofloxacin 750 MG/150 ML 750 MG/150 ML BAG IVPB ONE (11:50)
[2016-12-26] MEDS ORDERED: Vancomycin 1,000 MG in D5% in Water 250 ML IVPB ONE (11:59)
[2016-12-26] MEDS ORDERED: Aspirin 325 MG TABLET PO ONE (11:59)
[2016-12-26] MEDS ORDERED: Piperacillin/Tazobactam 3.375 GM in D5% in Water (Mini-Bag+) 100 ML IVPB ONE (11:59)
[2016-12-26] MEDS ORDERED: 0.9 % Sodium Chloride 500 ML IVC ONE (12:06)
--- NOTE | 2016-12-26 12:11 | Emergency Department Note ---
Disposition Clinical Impression: HCAP (healthcare-associated pneumonia), NSTEMI (non-ST elevated myocardial infarction) Disposition: Admitted As Inpatient Condition: Good Referrals: Lilo Beltran MD [Primary Care Provider] - Forms: ED Satisfaction Letter Time of Disposition: 14:45 SOB HPI - General Chief Complaint: ED Shortness of Breath/Dyspnea Stated Complaint: BONI Time Seen by Provider: 12/26/16 10:30 Source: patient Limitations: no limitations Nursing Notes Reviewed: Yes Vital Signs Reviewed: Yes - History of Present Illness 61 year old male with HX of COPD/CHF and productive cough for the past few days was most recently discharged from the hospital a few days ago for CHF excerbation. Patient states he has been feeling increased chest pain with shortness of breath that feels different from his typical CHF excerbation. He also sates that he has been experiending ia productive cough that is white in color. PAtinet denies any fevers at home. PAtinet states that he is increasinlgy more dyspneic and increase his needs for oxygen requirements. Chest pain is described as pressure and without radiation. - Related Data Home Medications Medication Instructions Recorded Confirmed Amiodarone [Cordarone] 200 mg PO DAILY 09/06/15 12/26/16 Levothyroxine [Synthroid] 50 mcg PO HS 09/06/15 12/26/16 Metoprolol Succinate 100 mg PO DAILY 09/06/15 12/26/16 Nitroglycerin [Nitrostat] 0.4 mg SL Q5M PRN 09/06/15 12/26/16 Oxygen 2 l NS AD 09/06/15 12/26/16 Warfarin [Coumadin] 5 mg PO SUMOWEFRSA 09/06/15 12/26/16 Warfarin [Coumadin] 7.5 mg PO TUTH 11/13/15 12/26/16 Albuterol Sulfate [Albuterol 2 puff IH Q6HR PRN 03/14/16 12/26/16 Inhaler] Torsemide 100 mg PO BID 03/14/16 12/26/16 HYDROcodone/Acet 10/325 mg [[place] 1 tab PO BID PRN 12/19/16 12/26/16 10-325 mg] Tamsulosin [Flomax] 0.4 mg PO DAILY 12/19/16 12/26/16 Cholecalciferol (D-3) [Vitamin D] 1,000 unit PO DAILY 12/20/16 12/26/16 Insulin Aspart Prot/Insuln Asp 0 unit SQ BID PRN 12/20/16 12/26/16 [Novolog Mix 70-30 Flexpen Syrn] Meclizine HCl [Verticalm] 25 mg PO DAILY PRN 12/20/16 12/26/16 Previous Rx's Medication Instructions Recorded Aspirin 81 mg PO DAILY 30 Days tab.chew 11/16/15 Budesonide/Formoterol 80/4.5 2 puff IH BIDR #1 inhaler 11/16/15 [Symbicort 80/4.5] Lisinopril [Zestril] 5 mg PO DAILY tablet 12/21/16 Allergies Allergy/AdvReac Type Severity Reaction Status Date / Time metformin Allergy Hives Verified 12/19/16 10:37 pioglitazone [From Actos] Allergy Hives Verified 12/19/16 10:37 trazodone Allergy Hives Verified 12/19/16 10:37 Constitutional: Denies: fever, chills, weakness, weight change Eyes: Denies: eye pain, eye discharge, vision change ENT ED: Denies: ear pain, throat pain, dental pain, hearing loss, epistaxis, congestion, dysphagia Cardiovascular: Reports: chest pain, palpitations, dyspnea on exertion. Denies : edema, syncope Respiratory: Reports: cough, wheezes. Denies: dyspnea, hemoptysis, stridor Gastrointestinal: Denies: abdominal pain, nausea, vomiting, diarrhea, constipation, hematemesis, melena, hematochezia Genitourinary: Denies: urgency, dysuria, frequency, hematuria Musculoskeletal: Denies: back pain, neck pain, arthralgia, myalgia Integumentary: Denies: rash, abrasion, lesions Neurological: Denies: headache, weakness, numbness, paresthesias, confusion, abnormal gait, vertigo Psychiatric: Denies: anxiety, depression, suicidal thoughts, homicidal thoughts , auditory hallucinations, visual hallucinations Endocrine: Denies: fatigue Hematological/Lymphatic: Denies: easy bleeding, easy bruising Allergic/Immunologic: Denies: facial swelling, urticaria Past Medical History - Past Medical History Medical history: Reports: atrial fibrillation, cardiomyopathy, CHF, COPD, coronary artery disease, diabetes, hyperlipidemia, hypertension Surgical history: Reports: angioplasty/stent, coronary bypass (CABG), pacemaker/ AICD Psychiatric history: Reports: no psych history - Social History Smoking Status: Current every day smoker Smokeless Tobacco Status: No Alcohol use: Reports: none Drug use: Reports: none Physical Exam - General Limitations: no limitations General appearance: alert, obese - Head Head exam: atraumatic, normocephalic, normal inspection - Eye Eye exam: Present: normal appearance, PERRL, EOMI - Expanded Eye Exam Pupils: Left: reactive - ENT ENT exam: normal exam, normal oropharynx, mucous membranes moist - Expanded ENT Exam External ear exam: Present: normal external inspection Mouth exam: Present: normal external inspection Teeth exam: Present: normal inspection Throat exam: Present: normal inspection - Neck Neck exam: Present: normal inspection, full ROM, trachea midline - Chest Chest inspection: Present: normal inspection, symmetric chest wall rise - Respiratory Respiratory exam: Present: wheezes - Cardiovascular Cardiovascular exam: Present: regular rate, normal rhythm, normal heart sounds - Abdominal Exam Abdominal exam: Present: soft, Non-Tender. Absent: tenderness, distention, guarding, rebound, rigidity - Extremities Exam Extremities exam: Present: normal inspection, full ROM. Absent: tenderness, pedal edema - Expanded Upper Extremity Exam Shoulder exam: Present: normal inspection, full ROM Arm exam: Present: normal inspection, full ROM Elbow exam: Present: normal inspection, full ROM Forearm/Wrist exam: Present: normal inspection, full ROM Hand exam: Present: normal inspection, full ROM Vascular exam: Normal: capillary refill, radial pulse - Expanded Lower Extremity Exam Hip/Pelvis exam: Present: normal inspection, full ROM Upper leg exam: Present: normal inspection, full ROM Knee exam: Present: normal inspection, full ROM Lower leg exam: Present: normal inspection, full ROM Ankle exam: Present: normal inspection, full ROM Foot/toe exam: Present: normal inspection, full ROM Neurovascular/Tendon exam: Absent: motor deficit, sensory deficit, tendon deficit - Back Exam Back exam: Present: normal inspection, full ROM. Absent: tenderness - Neurological Exam Neurological exam: Present: alert, oriented X3 - Expanded Neurological Exam Patient oriented to: Present: person, place, time Coma Scale Eye Opening: Spontaneous Coma Scale Motor Response: Obeys Commands Coma Scale Verbal Response: Oriented Coma Scale Total: 15 - Psychiatric Psychiatric exam: Present: normal affect, normal mood - Skin Skin exam: Present: warm, dry, intact, normal color Course Course Narrative: we will do cardiac workup [facility] rule out hcAP vs NSTEMI vs. PE. - Reevaluation(s) Reevaluation #1: D-dimer is negative. NO PE. HCAP likey with WBC of 19. HCAP therapy started, elevated troponin as well like due to infection saira start heparin therapy now. IVF started. Time: 12:13 - Consultations Consultation #1: discussed case with Dr. Herbert and he has been accepted to his service. Time: 14:45 Vital Signs Temperature 97.8 F 12/26/16 10:21 Pulse Rate 90 12/26/16 10:21 Respiratory Rate 18 12/26/16 10:21 Blood Pressure 109/72 12/26/16 10:21 O2 Sat by Pulse Oximetry 96 12/26/16 10:21 Temperature 97.8 F 12/26/16 10:21 Pulse Rate 80 12/26/16 14:00 Respiratory Rate 20 12/26/16 14:00 Blood Pressure 108/73 12/26/16 14:00 O2 Sat by Pulse Oximetry 98 12/26/16 14:00 Oxygen Delivery Oxygen Delivery Room Air Shortness of Breath/Dyspnea - Medical Records Medical records reviewed: Yes I reviewed the patient's medical records. - Lab Data Lab results reviewed: Yes I reviewed the patient's lab results. Result diagrams: 12/26/16 10:49 12/26/16 10:49 Lab Results 12/26/16 12/26/16 12/26/16 Range/Units 10:49 10:49 10:49 WBC (4.3-11.1) K/mcL RBC (4.19-5.50) M/mcL Hgb (12.9-16.9) g/dL Hct (37.5-50.1) % MCV (83.0-100.0) fL MCH (28.0-33.3) pg MCHC (31.6-35.5) g/dL RDW (11.5-14.5) % Plt Count (140-400) K/mcL MPV (9.4-12.4) fL Immature Gran % (0-4) % Seg Neutrophils % % Lymphocytes % % Monocytes % % Eosinophils % % Basophils % % Neutrophils # (1.6-8.9) K/mcL Lymphocytes # (0.6-4.6) K/mcL Monocytes # (0.0-1.3) K/mcL Eosinophils # (0.0-0.6) K/mcL Basophils # (0.0-0.2) K/mcL PT 31.7 H (9.4-12.1) Seconds INR 2.9 APTT 32.3 (26.0-36.0) Seconds D-Dimer 407 (0-500) ng/mLFEU Sodium (136-145) mEq/L Potassium (3.5-4.5) mEq/L Chloride (98-109) mEq/L Carbon Dioxide (19-29) mEq/L BUN (8-26) mg/dL Creatinine (0.72-1.25) mg/dL Est GFR ( Amer) (> 60) Est GFR (Non-Af Amer) (> 60) BUN/Creatinine Ratio (6-26) Glucose (70-99) mg/dL Calculated Osmolality (280-300) Lactic Acid (0.5-2.2) mmol/L Calcium (8.6-10.8) mg/dL Total Bilirubin 1.3 H (0.2-1.2) mg/dL Direct Bilirubin 0.7 H (0.0-0.5) mg/dL Indirect Bilirubin 0.6 (0.0-1.2) mg/dL AST 18 (5-34) Units/L ALT 34 (0-55) Units/L Alkaline Phosphatase 85 (38-126) Units/L Troponin I (0-0.03) ng/mL B-Natriuretic Peptide (0-100) pg/mL Serum Total Protein 7.3 (6.0-8.3) g/dL Albumin 3.5 (3.5-5.0) g/dL Globulin 3.8 H (2.4-3.5) g/dL Albumin/Globulin Ratio 0.9 L (1.1-2.2) Lipase (8-78) Units/L 12/26/16 12/26/16 12/26/16 Range/Units 10:49 10:49 10:49 WBC 19.2 H (4.3-11.1) K/mcL RBC 4.73 (4.19-5.50) M/mcL Hgb 14.0 (12.9-16.9) g/dL Hct 42.9 (37.5-50.1) % MCV 90.7 (83.0-100.0) fL MCH 29.6 (28.0-33.3) pg MCHC 32.6 (31.6-35.5) g/dL RDW 14.6 H (11.5-14.5) % Plt Count 277 (140-400) K/mcL MPV 10.5 (9.4-12.4) fL Immature Gran % 2.3 (0-4) % Seg Neutrophils % 80.8 % Lymphocytes % 8.0 % Monocytes % 8.3 % Eosinophils % 0.3 % Basophils % 0.3 % Neutrophils # 15.5 H (1.6-8.9) K/mcL Lymphocytes # 1.5 (0.6-4.6) K/mcL Monocytes # 1.6 H (0.0-1.3) K/mcL Eosinophils # 0.1 (0.0-0.6) K/mcL Basophils # 0.1 (0.0-0.2) K/mcL PT (9.4-12.1) Seconds INR APTT (26.0-36.0) Seconds D-Dimer (0-500) ng/mLFEU Sodium (136-145) mEq/L Potassium (3.5-4.5) mEq/L Chloride (98-109) mEq/L Carbon Dioxide (19-29) mEq/L BUN (8-26) mg/dL Creatinine (0.72-1.25) mg/dL Est GFR ( Amer) (> 60) Est GFR (Non-Af Amer) (> 60) BUN/Creatinine Ratio (6-26) Glucose (70-99) mg/dL Calculated Osmolality (280-300) Lactic Acid (0.5-2.2) mmol/L Calcium (8.6-10.8) mg/dL Total Bilirubin (0.2-1.2) mg/dL Direct Bilirubin (0.0-0.5) mg/dL Indirect Bilirubin (0.0-1.2) mg/dL AST (5-34) Units/L ALT (0-55) Units/L Alkaline Phosphatase (38-126) Units/L Troponin I (0-0.03) ng/mL B-Natriuretic Peptide 1318 H (0-100) pg/mL Serum Total Protein (6.0-8.3) g/dL Albumin (3.5-5.0) g/dL Globulin (2.4-3.5) g/dL Albumin/Globulin Ratio (1.1-2.2) Lipase 22 (8-78) Units/L 12/26/16 12/26/16 12/26/16 Range/Units 10:49 10:49 13:45 WBC (4.3-11.1) K/mcL RBC (4.19-5.50) M/mcL Hgb (12.9-16.9) g/dL Hct (37.5-50.1) % MCV (83.0-100.0) fL MCH (28.0-33.3) pg MCHC (31.6-35.5) g/dL RDW (11.5-14.5) % Plt Count (140-400) K/mcL MPV (9.4-12.4) fL Immature Gran % (0-4) % Seg Neutrophils % % Lymphocytes % % Monocytes % % Eosinophils % % Basophils % % Neutrophils # (1.6-8.9) K/mcL Lymphocytes # (0.6-4.6) K/mcL Monocytes # (0.0-1.3) K/mcL Eosinophils # (0.0-0.6) K/mcL Basophils # (0.0-0.2) K/mcL PT (9.4-12.1) Seconds INR APTT (26.0-36.0) Seconds D-Dimer (0-500) ng/mLFEU Sodium 131 L (136-145) mEq/L Potassium 4.0 (3.5-4.5) mEq/L Chloride 96 L (98-109) mEq/L Carbon Dioxide 24 (19-29) mEq/L BUN 71 H (8-26) mg/dL Creatinine 1.80 H (0.72-1.25) mg/dL Est GFR ( Amer) 47 L (> 60) Est GFR (Non-Af Amer) 38 L (> 60) BUN/Creatinine Ratio 39 H (6-26) Glucose 133 H (70-99) mg/dL Calculated Osmolality 295 (280-300) Lactic Acid 2.1 (0.5-2.2) mmol/L Calcium 9.2 (8.6-10.8) mg/dL Total Bilirubin (0.2-1.2) mg/dL Direct Bilirubin (0.0-0.5) mg/dL Indirect Bilirubin (0.0-1.2) mg/dL AST (5-34) Units/L ALT (0-55) Units/L Alkaline Phosphatase (38-126) Units/L Troponin I 0.06 H* (0-0.03) ng/mL B-Natriuretic Peptide (0-100) pg/mL Serum Total Protein (6.0-8.3) g/dL Albumin (3.5-5.0) g/dL Globulin (2.4-3.5) g/dL Albumin/Globulin Ratio (1.1-2.2) Lipase (8-78) Units/L - Radiology Data Radiology results reviewed: Yes I reviewed the patient's radiology results. - EKG Data EKG attestation: Yes I reviewed and interpreted this EKG. EKG results narrative: electronically paced with rate of 80. NO STEMI. ST depression in avl/v1/v2, no change from 12/19/16, 03/14/16. 1026
[2016-12-26] MEDS ORDERED: *HR* Heparin 5,000 UNIT/ML VIAL IVP ONE (12:15)
[2016-12-26] MEDS ORDERED: *HR* Heparin 5,000 UNIT/ML VIAL IVP PRN ×2 (12:15)
[2016-12-26] MEDS ORDERED: Heparin 25,000 UNIT/500 ML D5W 25,000 UNIT/500 ML MLS IVC SCH (12:15)
[2016-12-26 15:22] LABS: Bilirubin,Urine Negative (Negative); Blood,Urine Negative (Negative); Clarity,Urine Clear (Clear); Color,Urine Yellow (Yellow); Glucose,Urine (UA) Normal (Normal); Ketones,Urine Negative (Negative); Leukocyte Esterase,Urine Negative (Negative); Nitrite,Urine Negative (Negative); Protein,Urine Negative (Neg-Trace); Specific Gravity,Urine 1.015 (1.010-1.025); Urobilinogen,Urine Normal (Normal)
[2016-12-26] MEDS ORDERED: NON-FORMULARY MEDICATION 1 EACH EACH (Oxygen [Oxygen] 2 L) NS SCH (17:15)
[2016-12-26] MEDS ORDERED: Acetaminophen 325 MG TABLET PO PRN (17:16)
[2016-12-26] MEDS ORDERED: Naloxone 0.4 MG/ML INJ IVP PRN (17:16)
[2016-12-26] MEDS ORDERED: *HR* Morphine 2 MG/ML SYRINGE IVP PRN (17:16)
[2016-12-26] MEDS ORDERED: Ondansetron 4 MG/2 ML VIAL IVP PRN (17:16)
[2016-12-26] MEDS ORDERED: D5% in Water 1,000 ML IVC PRN (17:21)
[2016-12-26] MEDS ORDERED: *HR* Dextrose 50 % in Water (Syg) 50 ML SYRINGE IVP PRN (17:21)
[2016-12-26] MEDS ORDERED: Dextrose Gel 15 GM PO PRN ×2 (17:21)
--- NOTE | 2016-12-26 17:23 | Internal Med History&Physical ---
Date of Encounter: 12/26/16 Time of Encounter: 16:40 Assessment and Plan (1) COPD exacerbation Current visit: No Status: Acute Acute exacerbation of COPD Continue DuoNeb breathing treatment, empiric IV antibiotic, Symbicort, IV Solu- Medrol, O2 via nasal cannula Chest x-ray - stable mild pulmonary vascular congestion Cardiac telemetry, pulse ox, labs in a.m., monitor closely (2) Acute on chronic systolic (congestive) heart failure Current visit: No Status: Acute Acute on chronic CHF systolic exacerbation LVEF 20-25%, with cardiomyopathy - status post AICD Continue Torsemide 100 mg twice daily, Toprol-XL, Lisinopril Daily weight, strict I's and O's, fluid restriction Cardiac telemetry, pulse ox, labs in a.m., monitor closely (3) HCAP (healthcare-associated pneumonia) Current visit: Yes Status: Acute Probable healthcare associated pneumonia, present on admission - with elevated white count and productive cough Continue DuoNeb breathing treatment, empiric IV Zosyn, IV vancomycin, IV Levaquin CT chest - atelectasis in left lung base, stable pulmonary nodules Cultures - pending (4) Atrial fibrillation Current visit: No Status: Chronic Chronic atrial fibrillation - rate controlled Continue Coumadin for anticoagulation, continue Toprol-XL, Amiodarone Qualifiers: Atrial fibrillation type: chronic Qualified Code(s): I48.2 - Chronic atrial fibrillation (5) CAD (coronary artery disease) Current visit: No Status: Chronic History of coronary artery disease, status post stents and status post CABG - stable Continue aspirin and statin Troponin - 0.07, cycle troponin Qualifiers: Coronary Disease-Associated Artery/Lesion type: unspecified vessel or lesion type [place] vs. transplanted heart: [place] heart Associated angina: without angina Qualified Code(s): I25.10 - Atherosclerotic heart disease of [place] coronary artery without angina pectoris (6) CKD (chronic kidney disease) Current visit: No Status: Chronic Chronic kidney disease stage III - stable, creatinine and GFR at baseline Repeat labs in a.m. Qualifiers: Chronic kidney disease stage: stage 3 (moderate) Qualified Code(s): N18.3 - Chronic kidney disease, stage 3 (moderate) (7) Diabetes Current visit: No Status: Acute Diabetes mellitus type 2, insulin-dependent, hyperglycemia Continue glucose checks, insulin sliding scale Qualifiers: Diabetes mellitus type: type 2 Diabetes mellitus complication status: without complication Diabetes mellitus loop sewer insulin use: with chcf use Qualified Code(s): E11.9 - Type 2 diabetes mellitus without complications ; Z79.4 - patch sander (current) use of insulin (8) Obesity, Class III, BMI 40-49.9 (morbid obesity) Current visit: No Status: Chronic BMI 41.8 (9) Tobacco abuse counseling Current visit: No Status: Chronic Counseled about cessation, nicotine patch (10) DVT prophylaxis Current visit: Yes Status: Acute Continue Coumadin Internal Medicine - H&P: HPI Chief complaint: Shortness of breath Admitted From: Emergency Dept Plans for Post Hospital Care: Home History of present illness: Mr. Lance is a 61 year old male with past medical history of COPD, CHF, cardiomyopathy, coronary artery disease s/p CABG, diabetes, hypertension, chronic atrial fibrillation, hypothyroidism and chronic kidney disease stage III. He presents to the ED with complaints of shortness of breath. Examined in the room. Patient is awake and alert. Not in any distress. Able to provide all history. is at bedside. Patient states he developed shortness of breath last night. He also complains of mild productive white colored cough. Symptoms have gradually worsened. Shortness of breath is aggravated with exertion. He is oxygen dependent at home. He states he used his breathing treatment, but this did not help. Patient was discharged about one week ago after being treated for CHF and COPD exacerbation. Patient states he felt okay when he went home, but shortness of breath started again. He denies chest pain, denies palpitations, denies headache or fever or abdominal pain. Denies vomiting or diarrhea. No other associated symptoms. Initial workup in the ED is significant for elevated white count. Patient also has slightly elevated troponin likely due to CHF and cardiomyopathy. His BNP peptide is greater than 1300. CT of the chest reveals atelectasis in the left lung base, stable granulomas. No other significant findings. Patient is being admitted for COPD and CHF exacerbation and probable healthcare associated pneumonia. CODE STATUS full code. Past Med Surg Social Fam HX - Past Medical History Medical history: atrial fibrillation, cardiomyopathy, CHF, COPD, coronary artery disease, diabetes, hyperlipidemia, hypertension Psychiatric history: no psych history - Past Surgical History Surgical History: angioplasty/stent, coronary bypass (CABG), pacemaker/AICD - Social History Smoking Status: Current every day smoker Smokeless Tobacco Status: No Alcohol use: none Drug use: none - Family History Father Hx Family Cardiac Disorders: Yes (CHF, multiple heart attacks) Mother Living Status: Age at : 87 Cause of : [facility] Internal Medicine - H&P: Meds Amiodarone [Cordarone] 200 mg PO DAILY 09/06/15 [History] Levothyroxine [Synthroid] 50 mcg PO HS 09/06/15 [History] Metoprolol Succinate 100 mg PO DAILY 09/06/15 [History] Nitroglycerin [Nitrostat] 0.4 mg SL Q5M PRN 09/06/15 [History] Oxygen 2 l NS AD 09/06/15 [History] Warfarin [Coumadin] 5 mg PO SUMOWEFRSA 09/06/15 [History] Warfarin [Coumadin] 7.5 mg PO TUTH 11/13/15 [History] Aspirin 81 mg PO DAILY 30 Days tab.chew 11/16/15 [Rx] Budesonide/Formoterol 80/4.5 [Symbicort 80/4.5] 2 puff IH BIDR #1 inhaler 11/15 [Rx] Albuterol Sulfate [Albuterol Inhaler] 2 puff IH Q6HR PRN 03/14/16 [History] Torsemide 100 mg PO BID 03/14/16 [History] HYDROcodone/Acet 10/325 mg [[place] 10-325 mg] 1 tab PO BID PRN 12/19/16 [History] Tamsulosin [Flomax] 0.4 mg PO DAILY 12/19/16 [History] Cholecalciferol (D-3) [Vitamin D] 1,000 unit PO DAILY 12/20/16 [History] Insulin Aspart Prot/Insuln Asp [Novolog Mix 70-30 Flexpen Syrn] 0 unit SQ BID PRN 12/20/16 [History] Meclizine HCl [Verticalm] 25 mg PO DAILY PRN 12/20/16 [History] Lisinopril [Zestril] 5 mg PO DAILY tablet 12/21/16 [Rx] 3 Allergy/AdvReac Type Severity Reaction Status Date / Time metformin Allergy Hives Verified 12/19/16 10:37 pioglitazone [From Actos] Allergy Hives Verified 12/19/16 10:37 trazodone Allergy Hives Verified 12/19/16 10:37 All Systems PM: A 10-system review of systems was performed and is negative for pertinent findings except as documented above in the HPI. - Constitutional Constitutional: fatigue, no fever(s), no weakness - EENT Eyes: no blurry vision - Cardiovascular Cardiovascular ROS IM: dyspnea, dyspnea on exertion, edema, no chest pain, no diaphoresis, no lightheadedness, no orthopnea, no palpitations, no syncope - Respiratory Respiratory: cough, dyspnea, dyspnea on exertion, wheezing, chest congestion, excessive phlegm production, no hemoptysis - Gastrointestinal Gastrointestinal: no abdominal pain, no bloating, no diarrhea, no hematemesis, no hematochezia, no nausea, no vomiting - Genitourinary Genitourinary ROS male: no dysuria - Neurological Neurological ROS: no abnormal gait, no confusion, no convulsions, no dizziness, no loss of vision, no numbness, no tingling - Constitutional Vitals: Temp Pulse Resp BP Pulse Ox 97.6 F 76 20 101/70 90 12/26/16 16:21 12/26/16 16:21 12/26/16 16:21 12/26/16 16:21 12/26/16 16:21 General appearance: Present: cooperative, A&O X 3, morbidly obese, pleasant, no acute distress, answers questions appropriately - Head Head exam: Present: atraumatic - Eye Eye exam: Present: EOMI - ENT ENT exam: Present: mucous membranes moist - Respiratory Respiratory exam: Present: wheezes (Mild bilateral). Absent: accessory muscle use, chest wall tenderness, rales, rhonchi, tachypnea - Cardiovascular Cardiovascular exam: Present: irregular rhythm, +S1, +S2, systolic murmur - GI/Abdominal GI/Abdominal exam: Present: soft. Absent: distended, firm, guarding, tenderness - Extremities Exam Extremities exam: Present: pedal edema (Bilateral 3+ pitting edema), radial pulses palpable and symmetrical. Absent: calf tenderness, cyanotic - Neurological Exam Neurological exam: Present: alert, oriented X3, no focal deficits. Absent: facial droop, speech deficit Internal Med - H&P Results - Labs CBC & Chem 7: 12/26/16 10:49 12/26/16 10:49 Labs: Urine 09/26/17 Range/Units 15:15 Urine Color Yellow (Yellow) Urine Clarity Clear (Clear) Urine pH 6.0 (5.0-8.0) pH Units Ur Specific [place] 1.015 (1.010-1.025) Urine Protein Negative (Neg-Trace) mg/dL Urine Glucose (UA) Normal (Normal) mg/dL
[2016-12-26] MEDS ORDERED: *HR* Warfarin 7.5 MG TABLET PO SCH (18:00)
[2016-12-26] MEDS ORDERED: Vancomycin 1,000 MG in D5% in Water 250 ML IVPB SCH (18:00)
[2016-12-26] MEDS: Budesonide/Formoterol 80/4.5 MDI IH SCH (20:46)
[2016-12-26] MEDS: Ipratropium/Albuterol Neb 3 ML IH SCH (20:46)
[2016-12-26] MEDS: Famotidine 20 MG/2 ML VIAL IVP SCH (20:49)
[2016-12-26] MEDS: Torsemide 20 MG TABLET PO SCH (20:50)
[2016-12-26] MEDS: Nicotine 21 MG PATCH.TD24 TD SCH (20:50)
[2016-12-26] MEDS: Insulin LISPRO 300 UNITS/3 ML VIAL SQ SCH (22:32)
[2016-12-27] MEDS: methylPREDNISolone 125 MG/2 ML VIAL IVP SCH ×4 (00:22→23:04)
[2016-12-27] MEDS: Piperacillin/Tazobactam 3.375 GM in D5% in Water (Mini-Bag+) 100 ML IVPB SCH ×2 (00:22→09:54)
[2016-12-27] MEDS: Vancomycin 1,250 MG in D5% in Water 250 ML IVPB SCH ×2 (00:29→14:09)
[2016-12-27] MEDS: Ipratropium/Albuterol Neb 3 ML IH SCH ×7 (00:41→23:44)
[2016-12-27 01:00] LABS: Basophils % 0.2 %; Eosinophils # 0.1 K/mcL (0.0-0.6); Eosinophils % 0.8 %; Hematocrit 42.5 % (37.5-50.1); Hemoglobin 14.1 g/dL (12.9-16.9); Immature Granulocytes % 1.8 % (0-4); Lymphocytes # 1.5 K/mcL (0.6-4.6); Lymphocytes % 8.9 %; Mean Corpuscular HGB Conc 33.2 g/dL (31.6-35.5); Mean Corpuscular Hemoglobin 30.2 pg (28.0-33.3); Mean Platelet Volume 10.7 fL (9.4-12.4); Monocytes # 1.6 K/mcL (0.0-1.3); Monocytes % 9.4 %; Neutrophils # 13.5 K/mcL (1.6-8.9); Platelet Count 237 K/mcL (140-400); Red Blood Count 4.67 M/mcL (4.19-5.50); Red Cell Distribution Width 14.6 % (11.5-14.5); Segmented Neutrophils % 78.9 %
[2016-12-27 01:04] LABS: INR 2.9; Prothrombin Time 32.5 Seconds (9.4-12.1)
[2016-12-27 01:12] LABS: Calcium 8.9 mg/dL (8.6-10.8); Magnesium 2.2 mg/dL (1.6-2.6); Potassium 3.8 mEq/L (3.5-4.5)
[2016-12-27] MEDS: *HR* HYDROcodone/Acet 10/325 mg TABLET PO PRN ×2 (06:01→17:33)
[2016-12-27] MEDS: Famotidine 20 MG/2 ML VIAL IVP SCH ×3 (06:01→17:35)
[2016-12-27] MEDS ORDERED: Aminoglycoside Consult 1 EACH MC ONE (07:49)
[2016-12-27] MEDS: Budesonide/Formoterol 80/4.5 MDI IH SCH ×2 (08:01→19:44)
[2016-12-27] MEDS ORDERED: *HR* Amiodarone 200 MG TABLET PO SCH (09:00)
[2016-12-27] MEDS ORDERED: Metoprolol XL (24 HR) Succ 50 MG TAB.ER.24H PO SCH (09:00)
[2016-12-27] MEDS ORDERED: Cholecalciferol (D-3) 1,000 UNIT TABLET PO SCH (09:00)
[2016-12-27] MEDS ORDERED: Aspirin 81 MG TAB.CHEW PO SCH (09:00)
[2016-12-27] MEDS: Torsemide 20 MG TABLET PO SCH ×2 (09:52→20:28)
[2016-12-27] MEDS: Nicotine 21 MG PATCH.TD24 TD SCH (09:53)
[2016-12-27] MEDS: Insulin LISPRO 300 UNITS/3 ML VIAL SQ SCH ×4 (09:53→21:35)
[2016-12-27] MEDS ORDERED: Levofloxacin 750 MG/150 ML 750 MG/150 ML BAG IVPB SCH (13:00)
--- NOTE | 2016-12-27 13:33 | Internal Med Progress Note ---
<Andrés Rivas - Last Filed: 12/27/16 16:12> Date of Encounter: 12/27/16 Time of Encounter: 10:00 - Assessment and plan (1) COPD exacerbation Current Visit: No Status: Acute Assessment and plan: Acute exacerbation of COPD, improved WBC 17.1, sputum culture negative for bacteria Chest x-ray demonstrated stable mild pulmonary vascular congestion CT chest demonstrates no evidence of pneumonia, mosaic lung attenuation suggests small airway obstructive disease with atelectasis in the left lung base. Nodules since 2013. Healthcare associated pneumonia unlikely based on clinical picture and imaging Continue DuoNeb breathing treatments as needed, Symbicort, IV Solu-Medrol, O2 Continue IV Levaquin, discontinue IV vancomycin and Zosyn Continue to monitor. (2) Acute on chronic systolic (congestive) heart failure Current Visit: No Status: Acute Assessment and plan: Acute on chronic systolic congestive heart failure left ventricular ejection fraction 20-25% status post AICD, improved Chest x-ray demonstrates mild pulmonary vascular congestion The patient is treated with IV torsemide, -1410 mL fluid balance in 24 hours Fluid restriction, strict I's and O's, daily weight Patient is currently on aspirin, beta gmeini, HENRIQUE inhibitor, statin Continue to monitor. (3) Atrial fibrillation Current Visit: No Status: Chronic Assessment and plan: Patient rate controlled, also on amiodarone Anticoagulated on Coumadin, INR 2.9 Continue home meds continue to monitor Qualifiers: Atrial fibrillation type: chronic Qualified Code(s): I48.2 - Chronic atrial fibrillation (4) Elevated troponin Current Visit: No Status: Acute Assessment and plan: Likely secondary to CHF Adynamic, unlikely and 70 Patient on cardiac monitoring, continue to watch (5) CAD (coronary artery disease) Current Visit: No Status: Chronic Assessment and plan: History of coronary artery disease status post stents and status post CABG Continue aspirin and statin Qualifiers: Coronary Disease-Associated Artery/Lesion type: unspecified vessel or lesion type [place] vs. transplanted heart: [place] heart Associated angina: without angina Qualified Code(s): I25.10 - Atherosclerotic heart disease of [place] coronary artery without angina pectoris (6) CKD (chronic kidney disease) Current Visit: No Status: Chronic Assessment and plan: Stable, creatinine and GFR at baseline Continue to monitor Qualifiers: Chronic kidney disease stage: stage 3 (moderate) Qualified Code(s): N18.3 - Chronic kidney disease, stage 3 (moderate) (7) Obesity, Class III, BMI 40-49.9 (morbid obesity) Current Visit: No Status: Chronic (8) DM (diabetes mellitus) Current Visit: No Status: Chronic Assessment and plan: Diabetes mellitus type 2, insulin-dependent, moderate control Continue glucose checks, ACHS, insulin sliding scale Qualifiers: Diabetes mellitus type: type 2 Diabetes mellitus complication status: with unspecified complications Diabetes mellitus mcc insulin use: with intermediate accountant use Qualified Code(s): E11.8 - Type 2 diabetes mellitus with unspecified complications (9) DVT prophylaxis Current Visit: Yes Status: Acute Assessment and plan: Patient anticoagulated on Coumadin, INR 2.9 - Subjective Interval history: The patient was sitting comfortably in bed at the time of examination. He says that he started feeling completely better, and feels like he could probably even gone today. He has no acute complaints at this time. - Constitutional Vitals: Temp Pulse Resp BP Pulse Ox 97.8 F 82 16 123/76 96 12/27/16 11:50 12/27/16 11:50 12/27/16 11:50 12/27/16 11:50 12/27/16 11:50 General appearance: Present: cooperative, A&O X 3, morbidly obese, pleasant, no acute distress, answers questions appropriately - Head Head exam: Present: atraumatic, normocephalic - Eye Eye exam: Present: PERRL, conjuntiva pink, sclera anicteric Pupils: Present: PERRL - Neck Neck exam general surgery: Present: supple, trachea midline. Absent: lymphadenopathy - Respiratory Respiratory exam: Present: CTAB. Absent: accessory muscle use, rales, rhonchi, wheezes - Cardiovascular Cardiovascular exam: Present: RRR, +S1, +S2. Absent: diastolic murmur, gallop, rubs, systolic murmur - GI/Abdominal GI/Abdominal exam: Present: normal bowel sounds, soft, no peritoneal signs. Absent: distended, tenderness - Extremities Exam Extremities exam: Present: pedal edema, warm, radial pulses palpable and symmetrical. Absent: calf tenderness, cyanotic Additional comments: 2+ bilaterally - Neurological Exam Neurological exam: Present: CN II-XII intact, oriented X3, no focal deficits. Absent: pronater drift, facial droop, speech deficit - Skin Skin exam: Present: dry, intact Additional comments: Diffuse ecchymosis over all limbs and trunk. Patient says was normal. Internal Medicine: Result - Labs CBC & Chem 7: 12/27/16 00:52 12/27/16 00:52 Labs: Short CBC 12/27/16 Range/Units 00:52 WBC 17.1 H (4.3-11.1) K/mcL Hgb 14.1 (12.9-16.9) g/dL Hct 42.5 (37.5-50.1) % Plt Count 237 (140-400) K/mcL Neutrophils # 13.5 H (1.6-8.9) K/mcL BMP 12/27/16 00:52 Sodium 130 L Potassium 3.8 Chloride 96 L Carbon Dioxide 23 BUN 63 H Creatinine 1.78 H Glucose 146 H Calcium 8.9 Cardiac Enzymes 12/26/16 12/27/16 12/27/16 Range/Units 17:30 00:52 05:55 Troponin I 0.07 H* 0.05 H* 0.04 H* (0-0.03) ng/mL Urine 12/26/16 Range/Units 15:15 Urine Color Yellow (Yellow) Urine Clarity Clear (Clear) Urine pH 6.0 (5.0-8.0) pH Units Ur Specific [place] 1.015 (1.010-1.025) Urine Protein Negative (Neg-Trace) mg/dL Urine Glucose (UA) Normal (Normal) mg/dL - ABG Interpretation ABG results: PT/INR, D-dimer PT 32.5 Seconds (9.4-12.1) H 12/27/16 00:52 D-Dimer 407 ng/mLFEU (0-500) 12/26/16 10:49 Consult Discharge Plan - Plan Referrals: Lilo Beltran MD [Primary Care Provider] - <Jason Eaton - Last Filed: 12/27/16 18:46> Date of Encounter: 12/27/16 - Assessment and plan (1) Acute and chronic respiratory failure with hypoxia Current Visit: Yes Status: Acute (2) Acute exacerbation of chronic obstructive airways disease Current Visit: Yes Status: Acute (3) Acute on chronic systolic (congestive) heart failure Current Visit: No Status: Acute (4) Atrial fibrillation Current Visit: No Status: Chronic Qualifiers: Atrial fibrillation type: chronic Qualified Code(s): I48.2 - Chronic atrial fibrillation (5) Diabetes Current Visit: No Status: Acute Qualifiers: Diabetes mellitus type: type 2 Diabetes mellitus complication status: without complication Diabetes mellitus intermediate accountant insulin use: with mcc use Qualified Code(s): E11.9 - Type 2 diabetes mellitus without complications ; Z79.4 - penitentiary (current) use of insulin (6) CAD (coronary artery disease) Current Visit: No Status: Chronic Qualifiers: Coronary Disease-Associated Artery/Lesion type: unspecified vessel or lesion type [place] vs. transplanted heart: [place] heart Associated angina: without angina Qualified Code(s): I25.10 - Atherosclerotic heart disease of [place] coronary artery without angina pectoris (7) CKD (chronic kidney disease) Current Visit: No Status: Chronic Qualifiers: Chronic kidney disease stage: stage 3 (moderate) Qualified Code(s): N18.3 - Chronic kidney disease, stage 3 (moderate) (8) Obesity, Class III, BMI 40-49.9 (morbid obesity) Current Visit: No Status: Chronic (9) Tobacco abuse Current Visit: Yes Status: Acute - Constitutional Vitals: Temp Pulse Resp BP Pulse Ox 97.8 F 80 16 108/77 98 12/27/16 15:50 12/27/16 15:50 12/27/16 16:23 12/27/16 15:50 12/27/16 16:23 Internal Medicine: Result - Labs CBC & Chem 7: 12/27/16 00:52 12/27/16 00:52 Labs: Short CBC 12/27/16 Range/Units 00:52 WBC 17.1 H (4.3-11.1) K/mcL Hgb 14.1 (12.9-16.9) g/dL Hct 42.5 (37.5-50.1) % Plt Count 237 (140-400) K/mcL Neutrophils # 13.5 H (1.6-8.9) K/mcL BMP 12/27/16 00:52 Sodium 130 L Potassium 3.8 Chloride 96 L Carbon Dioxide 23 BUN 63 H Creatinine 1.78 H Glucose 146 H Calcium 8.9 Cardiac Enzymes 12/27/16 12/27/16 Range/Units 00:52 05:55 Troponin I 0.05 H* 0.04 H* (0-0.03) ng/mL - ABG Interpretation ABG results: PT/INR, D-dimer PT 32.5 Seconds (9.4-12.1) H 12/27/16 00:52 D-Dimer 407 ng/mLFEU (0-500) 12/26/16 10:49 - Attending Attestation I examined this patient and my medical decision-making was reviewed with the Resident Physician on 12/27/16. I agree with the documented findings, disposition and treatment plan as described except to the extent set forth below. Mr. Lance is currently admitted for acute exac COPD. He remains moderate to high risk due to potential for worsening respiratory status. Mr. Lance is feeling OK at this time. His breathing has improved today. He is still coughing quite a bit. No fever or chills. No GI issues. Exam Alert. Comfortable Heart reg Diffuse end exp wheeze Abd soft Edema present I/P 1. Resp failure 2. COPD Further diagnoses and plan as above.
[2016-12-27] MEDS: Nystatin SUSP 5 ML UD.LIQ PO SCH ×2 (17:34→20:28)
[2016-12-27] MEDS ORDERED: *HR* Warfarin 3 MG TABLET PO ONE (18:00)
[2016-12-27] MEDS ORDERED: *HR* Warfarin 5 MG TABLET PO SCH (18:00)
[2016-12-27] MEDS ORDERED: Warfarin perPT PO PRN (18:00)
--- NOTE | 2016-12-27 18:29 | Electrocardiograph Report ---
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
[2016-12-28] MEDS: Ipratropium/Albuterol Neb 3 ML IH SCH ×2 (04:05→07:32)
[2016-12-28 05:03] VITALS: BP 103/69
[2016-12-28] MEDS: Budesonide/Formoterol 80/4.5 MDI IH SCH (07:32)
[2016-12-28 07:59] LABS: Basophils % 0.1 %; Hematocrit 42.2 % (37.5-50.1); Immature Granulocytes % 1.8 % (0-4); Lymphocytes # 0.5 K/mcL (0.6-4.6); Lymphocytes % 3.4 %; Mean Corpuscular HGB Conc 33.2 g/dL (31.6-35.5); Mean Corpuscular Hemoglobin 30.2 pg (28.0-33.3); Mean Corpuscular Volume 91.1 fL (83.0-100.0); Monocytes # 0.5 K/mcL (0.0-1.3); Monocytes % 3.6 %; Neutrophils # 13.2 K/mcL (1.6-8.9); Platelet Count 238 K/mcL (140-400); Red Blood Count 4.63 M/mcL (4.19-5.50); Red Cell Distribution Width 14.6 % (11.5-14.5); Segmented Neutrophils % 91.1 %
[2016-12-28 08:11] LABS: INR 3.8
[2016-12-28 08:16] LABS: Calcium 9.1 mg/dL (8.6-10.8); Potassium 4.6 mEq/L (3.5-4.5)
--- NOTE | 2016-12-28 08:49 | Discharge Summary ---
<Andrés Rivas - Last Filed: 12/28/16 17:23> Date of Encounter: 12/28/16 Time of Encounter: 06:45 - Discharge Diagnosis (1) COPD exacerbation Priority: Primary Status: Acute Comments: Acute exacerbation of COPD, improved WBC 14.5, afebrile Patient is clinically improved and no longer coughing up any sputum Shortness of breath has resolved Discharge patient on by mouth Levaquin for a total of 5 day antibiotic course (2) Acute on chronic systolic (congestive) heart failure Priority: Primary Status: Acute Comments: Acute on chronic systolic congestive heart failure, improved Patient is in negative fluid balance over the course of his admission. The patient is alert complaining of shortness of breath The patient is discharged on optimum medical management (3) Atrial fibrillation Priority: Secondary Status: Chronic Qualifiers: Atrial fibrillation type: chronic Qualified Code(s): I48.2 - Chronic atrial fibrillation (4) Elevated troponin Priority: Secondary Status: Resolved Comments: Resolved (5) CAD (coronary artery disease) Priority: Secondary Status: Chronic Comments: Patient is discharged on home medications which are appropriate for management of coronary artery disease Qualifiers: Coronary Disease-Associated Artery/Lesion type: unspecified vessel or lesion type [place] vs. transplanted heart: [place] heart Associated angina: without angina Qualified Code(s): I25.10 - Atherosclerotic heart disease of [place] coronary artery without angina pectoris (6) CKD (chronic kidney disease) Priority: Secondary Status: Chronic Comments: Stable Qualifiers: Chronic kidney disease stage: stage 3 (moderate) Qualified Code(s): N18.3 - Chronic kidney disease, stage 3 (moderate) (7) Obesity, Class III, BMI 40-49.9 (morbid obesity) Priority: Secondary Status: Chronic (8) DM (diabetes mellitus) Priority: Secondary Status: Chronic Comments: Patient's blood glucose is elevated, however he is able to manage it on home regiment The patient mentions that he has been treated with an insulin pump previously and needs to be back on The patient is instructed to follow up closely with endocrinology and to keep track of his sugars daily for multiple readings a day. The patient is able to explain his insulin regimen Qualifiers: Diabetes mellitus type: type 2 Diabetes mellitus complication status: with unspecified complications Diabetes mellitus longterm insulin use: with longterm use Qualified Code(s): E11.8 - Type 2 diabetes mellitus with unspecified complications (9) DVT prophylaxis Priority: Secondary Status: Acute Comments: The patient is anticoagulated on warfarin - Discharge Medications Prescriptions: Fluticasone/Vilanterol [Breo Ellipta 100-25 Mcg INH] 1 each IH DAILY #1 blst.w.dev levoFLOXacin [Levaquin] 750 mg PO DAILY #3 tablet predniSONE [PredniSONE] 40 mg PO DAILY 4 Days #8 tablet Home Medications: Amiodarone [Cordarone] 200 mg PO DAILY 09/06/15 [History] Levothyroxine [Synthroid] 50 mcg PO HS 09/06/15 [History] Metoprolol Succinate 100 mg PO DAILY 09/06/15 [History] Nitroglycerin [Nitrostat] 0.4 mg SL Q5M PRN 09/06/15 [History] Oxygen 2 l NS AD 09/06/15 [History] Warfarin [Coumadin] 5 mg PO SUMOWEFRSA 09/06/15 [History] Warfarin [Coumadin] 7.5 mg PO TUTH 11/13/15 [History] Aspirin 81 mg PO DAILY 30 Days tab.chew 11/16/15 [Rx] Albuterol Sulfate [Albuterol Inhaler] 2 puff IH Q6HR PRN 03/14/16 [History] Torsemide 100 mg PO BID 03/14/16 [History] HYDROcodone/Acet 10/325 mg [[place] 10-325 mg] 1 tab PO BID PRN 12/19/16 [History] Tamsulosin [Flomax] 0.4 mg PO DAILY 12/19/16 [History] Cholecalciferol (D-3) [Vitamin D] 1,000 unit PO DAILY 12/20/16 [History] Insulin Aspart Prot/Insuln Asp [Novolog Mix 70-30 Flexpen Syrn] 0 unit SQ BID PRN 12/20/16 [History] Meclizine HCl [Verticalm] 25 mg PO DAILY PRN 12/20/16 [History] Lisinopril [Zestril] 5 mg PO DAILY tablet 12/21/16 [Rx] Acetaminophen [Tylenol] 650 mg PO Q6HR PRN tablet 12/28/16 [Rx] Fluticasone/Vilanterol [Breo Ellipta 100-25 Mcg INH] 1 each IH DAILY #1 blst.w.dev 12/28/16 [Rx] Simvastatin [Zocor] 40 mg PO HS tablet 12/28/16 [Rx] levoFLOXacin [Levaquin] 750 mg PO DAILY #3 tablet 12/28/16 [Rx] predniSONE [PredniSONE] 40 mg PO DAILY 4 Days #8 tablet 12/28/16 [Rx] Allergies/Adverse Reactions: 3 Allergy/AdvReac Type Severity Reaction Status Date / Time metformin Allergy Hives Verified 12/19/16 10:37 pioglitazone [From Actos] Allergy Hives Verified 12/19/16 10:37 trazodone Allergy Hives Verified 12/19/16 10:37 Procedures/tests Complete & Pending: Procedures Performed prior 72 hours Category Date Time Status ECG 12 lead ECG [ECG] AM 0600 Y 12/27/16 06:00 Ordered Date of admission: 12/26/16 14:45 Primary care physician: Lilo Beltran, Consults: 12/26/16 17:22 Consult for Pharmacy Education [CONS] Routine Reason for Consult: warafrin dosing Call Completed: No Discharging clinician: Andrés Rivas Anticipated date of discharge: 12/28/16 - Patient Status Disposition: Home, Self-Care Condition: Good Functional capacity at discharge: uses cane/walker Overall status at discharge: patient is progressing back to baseline - Discharge Instructions Follow Up With: Lilo Bletran MD [Primary Care Provider] - 01/08/17 10:30 am Additional Instructions: Patient should hold Warfarin for 2-3 days Follow up with PCP within 1 week. - Diet and Activity Activity: increase activity as tolerated Diet: diabetic diet Hospital course: Mr. Lance is a 61 year old male with past medical history of COPD, CHF, cardiomyopathy, coronary artery disease s/p CABG, diabetes, hypertension, chronic atrial fibrillation, hypothyroidism and chronic kidney disease stage III. He presented to the ED with complaints of shortness of breath for 1 day duration. Significantly, the patient mentions that she was discharged from the hospital one week prior with a CHF exacerbation and possible pneumonia. The patient also complains of mild productive cough, and states that the shortness of breath is aggravated with exertion. He mentions that he is oxygen dependent at home. In the ED, he was found to have an elevated white count, slightly elevated troponin, and a BNP of 1300. CT of the chest revealed atelectasis in the left lung base, with stable granulomas. The patient was admitted to the hospital for COPD and CHF exacerbations with possible healthcare associated pneumonia. In the hospital he received O2, empiric vancomycin, Zosyn and Levaquin, IV Solu-Medrol, and diuretic therapy. The patient improved dramatically over the course of 24 hours. On hospital day one the patient antibiotics would be escalated to Levaquin alone due to CT reading which demonstrated no pneumonia. The patient's white blood cell count dropped, and he maintained a -1410 mL fluid balance of 24 hours. He felt completely better, and believed that it was appropriate for discharge. He was discharged on by mouth steroids, Levaquin, appropriate COPD management. - Time Spent with Patient Total time spent providing and/or coordinating discharge services: - Constitutional Vitals: Temp Pulse Resp BP Pulse Ox 97.7 F 88 20 103/69 98 12/28/16 04:58 12/28/16 04:58 12/28/16 04:58 12/28/16 04:58 12/28/16 04:58 General appearance: Present: cooperative, A&O X 3, morbidly obese, pleasant, no acute distress, answers questions appropriately Exam: - Head Head exam: Present: atraumatic, normocephalic - Eye Eye exam: Present: PERRL, conjuntiva pink, sclera anicteric Pupils: Present: PERRL - Neck Neck exam general surgery: Present: supple, trachea midline. Absent: lymphadenopathy - Respiratory Respiratory exam: Present: CTAB, moderately decreased breath sounds b/l. Absent : accessory muscle use, rales, rhonchi, wheezes - Cardiovascular Cardiovascular exam: Present: RRR, +S1, +S2. Absent: diastolic murmur, gallop, rubs, systolic murmur - GI/Abdominal GI/Abdominal exam: Present: normal bowel sounds, soft, no peritoneal signs. Absent: distended, tenderness - Extremities Exam Extremities exam: Present: pedal edema, warm, radial pulses palpable and symmetrical. Absent: calf tenderness, cyanotic Additional comments: 2+ bilaterally - Neurological Exam Neurological exam: Present: CN II-XII intact, oriented X3, no focal deficits. Absent: pronater drift, facial droop, speech deficit - Skin Skin exam: Present: dry, intact Additional comments: Diffuse ecchymosis over all limbs and trunk. Patient says was normal. <Angelito,Jason A - Last Filed: 12/28/16 19:01> Date of Encounter: 12/28/16 - Discharge Diagnosis (1) Acute and chronic respiratory failure with hypoxia Priority: Primary Status: Acute (2) Acute exacerbation of chronic obstructive airways disease Priority: Primary Status: Acute (3) Acute on chronic systolic (congestive) heart failure Status: Acute (4) Atrial fibrillation Status: Chronic Qualifiers: Atrial fibrillation type: chronic Qualified Code(s): I48.2 - Chronic atrial fibrillation (5) Diabetes Priority: Secondary Status: Acute Qualifiers: Diabetes mellitus type: type 2 Diabetes mellitus complication status: without complication Diabetes mellitus superintendent terminal insulin use: with longterm use Qualified Code(s): E11.9 - Type 2 diabetes mellitus without complications ; Z79.4 - half-way (current) use of insulin (6) CAD (coronary artery disease) Status: Chronic Qualifiers: Coronary Disease-Associated Artery/Lesion type: unspecified vessel or lesion type [place] vs. transplanted heart: [place] heart Associated angina: without angina Qualified Code(s): I25.10 - Atherosclerotic heart disease of [place] coronary artery without angina pectoris (7) CKD (chronic kidney disease) Status: Chronic Qualifiers: Chronic kidney disease stage: stage 3 (moderate) Qualified Code(s): N18.3 - Chronic kidney disease, stage 3 (moderate) (8) Obesity, Class III, BMI 40-49.9 (morbid obesity) Status: Chronic (9) Tobacco abuse Priority: Secondary Status: Chronic Procedures/tests Complete & Pending: Procedures Performed prior 72 hours Category Date Time Status ECG 12 lead ECG [ECG] AM 0600 Y 12/27/16 06:00 Ordered Date of admission: 12/26/16 14:45 Primary care physician: Lilo Beltran, Consults: 12/26/16 17:22 Consult for Pharmacy Education [CONS] Routine Reason for Consult: warafrin dosing Call Completed: No 12/28/16 09:01 Consult to Pack Master [CONS] Routine Reason for SW Consult: Problems affording medications. Sudeep casanova. Hospital course: Mr. Lance is a 61 year old male - Time Spent with Patient Total time spent providing and/or coordinating discharge services: 38min - Constitutional Vitals: Temp Pulse Resp BP Pulse Ox 97.7 F 88 20 103/69 98 12/28/16 04:58 12/28/16 04:58 12/28/16 04:58 12/28/16 04:58 12/28/16 04:58 - Attending Attestation I examined this patient and my medical decision-making was reviewed with the Resident Physician on 12/28/16. I agree with the documented findings, disposition and treatment plan as described except to the extent set forth below. Mr. Lance has been admitted for hypoxia and acute exac COPD. He is now afebrile with stable vitals. He feels he is at baseline and is ready for discharge home. Exam Alert. Comfortable Lungs diminished Heart reg Abd obese Plan D/C home today.
[2016-12-28] MEDS ORDERED: levoFLOXacin 750 MG TABLET PO SCH (09:00)
== END 2016-12-28 10:33 | disposition home or self-care (01) | DRG 190 ==
LOC: EMEROO 10:09 → 2NENU 14:45
PROVIDERS: ADMIT Family Medicine; ATTEND Internal Medicine

== ENCOUNTER 2017-01-15 12:26 | Inpatient (IN) ==
[2017-01-15] MEDS ORDERED: Ipratropium/Albuterol Neb 3 ML IH ONE (12:59)
--- NOTE | 2017-01-15 13:36 | Emergency Department Note ---
Disposition Clinical Impression: Cellulitis Qualifiers: Site of cellulitis: extremity Site of cellulitis of extremity: lower extremity Laterality: left Qualified Code(s): L03.116 - Cellulitis of left lower limb Congestive heart failure Qualifiers: Congestive heart failure type: unspecified congestive heart failure type Congestive heart failure chronicity: chronic Qualified Code(s): I50.9 - Heart failure, unspecified Disposition: Admitted As Inpatient Condition: Fair Time of Disposition: 16:51 SOB HPI - General Chief Complaint: ED General Medical Stated Complaint: SOB, "sugar outta whack," "R foot leaking" Time Seen by Provider: 01/15/17 12:36 Source: patient Limitations: no limitations Nursing Notes Reviewed: Yes Vital Signs Reviewed: Yes - History of Present Illness Patient is a 61-year-old male who presents to [facility] ED with a chief complaint of lower extremity edema, shortness of breath, "sugars out of whack". States he was admitted on December 26 through the for COPD exacerbation and CHF exacerbation as well as pneumonia. He was discharged home on prednisone and Levaquin. States ever since going home, he has been gradually getting worse again. The swelling in his feet have increased over the last few days. It has not burst open and causing some leaking. He has worsening pain over the region of his left lower extremity. Patient's shortness of breath is worse with exertion. Past medical history of COPD, CHF, cardiomyopathy, coronary artery disease s/p CABG, diabetes, hypertension, chronic atrial fibrillation, hypothyroidism and chronic kidney disease stage III Pt Subjective Complaint: shortness of breath Onset (ago): day(s) Severity: moderate Consistency/Duration: gradually worsening Improves with: rest Worsens with: nothing Known history of: COPD, congestive heart failure, diabetes Associated symptoms: Reports: cough. Denies: fever, nausea/vomiting, abdominal pain Treatment prior to arrival: none - Related Data Home oxygen amount: 2 liters Home Medications Medication Instructions Recorded Confirmed Amiodarone [Cordarone] 200 mg PO DAILY 09/06/15 01/15/17 Levothyroxine [Synthroid] 50 mcg PO HS 09/06/15 01/15/17 Metoprolol Succinate 100 mg PO DAILY 09/06/15 01/15/17 Nitroglycerin [Nitrostat] 0.4 mg SL Q5M PRN 09/06/15 01/15/17 Oxygen 2 l NS AD 09/06/15 01/15/17 Warfarin [Coumadin] 5 mg PO SUMOWEFRSA 09/06/15 01/15/17 Warfarin [Coumadin] 7.5 mg PO TUTH 11/13/15 01/15/17 Albuterol Sulfate [Albuterol 2 puff IH Q6HR PRN 03/14/16 01/15/17 Inhaler] Torsemide 100 mg PO BID 03/14/16 01/15/17 HYDROcodone/Acet 10/325 mg [[place] 1 tab PO BID PRN 12/19/16 01/15/17 10-325 mg] Tamsulosin [Flomax] 0.4 mg PO DAILY 12/19/16 01/15/17 Cholecalciferol (D-3) [Vitamin D] 1,000 unit PO DAILY 12/20/16 01/15/17 Subcutaneous Insulin Pump [T:Slim] 1 each SQ AD PRN 01/15/17 01/15/17 Previous Rx's Medication Instructions Recorded Aspirin 81 mg PO DAILY 30 Days tab.chew 11/16/15 Lisinopril [Zestril] 5 mg PO DAILY tablet 12/21/16 Acetaminophen [Tylenol] 650 mg PO Q6HR PRN tablet 12/28/16 Fluticasone/Vilanterol [Breo 1 each IH DAILY #1 blst.w.dev 12/28/16 Ellipta 100-25 Mcg INH] Simvastatin [Zocor] 40 mg PO HS tablet 12/28/16 Nystatin [Nystatin Suspension] 100,000 units PO QID #120 ml 12/31/16 Allergies Allergy/AdvReac Type Severity Reaction Status Date / Time metformin Allergy Hives Verified 12/19/16 10:37 pioglitazone [From Actos] Allergy Hives Verified 12/19/16 10:37 trazodone Allergy Hives Verified 12/19/16 10:37 All systems ED: reviewed and negative except as stated. Past Medical History - Past Medical History Attestation: Yes The following information was validated with the patient. Source: patient Medical history: Reports: atrial fibrillation, cardiomyopathy, CHF, COPD, coronary artery disease, diabetes, hyperlipidemia, hypertension Surgical history: Reports: angioplasty/stent, coronary bypass (CABG), pacemaker/ AICD Psychiatric history: Reports: no psych history - Social History Smoking Status: Current every day smoker Smokeless Tobacco Status: No Alcohol use: Reports: none Drug use: Reports: none Physical Exam - General Limitations: no limitations General appearance: alert, obese - Head Head exam: atraumatic, normocephalic, normal inspection - Eye Eye exam: Present: normal appearance, EOMI - ENT ENT exam: normal exam, normal oropharynx, mucous membranes moist - Neck Neck exam: Present: normal inspection, full ROM, trachea midline - Chest Chest inspection: Present: normal inspection, symmetric chest wall rise - Respiratory Respiratory exam: Present: normal lung sounds bilaterally - Cardiovascular Cardiovascular exam: Present: regular rate, normal rhythm, normal heart sounds - Abdominal Exam Abdominal exam: Present: soft, Non-Tender. Absent: tenderness, distention, guarding, rebound, rigidity - Expanded Lower Extremity Exam Foot/toe exam: Present: tenderness, swelling, erythema (L foot) - Back Exam Back exam: Present: normal inspection, full ROM. Absent: tenderness - Neurological Exam Neurological exam: Present: alert, oriented X3 - Psychiatric Psychiatric exam: Present: normal affect, normal mood - Skin Skin exam: Present: warm, dry, erythema (Left lower extremity) Course Course Narrative: Patient seen and examined. Worsening edema as well as shortness of breath. History of COPD and CHF. We will give DuoNeb treatment and cardiopulmonary workup. His left lower extremity looks very erythematous and edematous. We will go ahead and do a CT of the left lower extremity with IV contrast to rule out osteomyelitis. We will start IV vancomycin and Zosyn. - Reevaluation(s) Reevaluation #1: Patient's lab work shows BNP over 1000. This is slightly decreased from his prior admission. His chest x-ray offices sign of congestive heart failure. The patient's fluctuating sugars at home and his inability to manage this, there is concern for the potential for his cellulitis to worsen significantly. CT of the foot shows some subcutaneous edema which is clinically correlated with some cellulitis. Patient admitted to hospitalist Homero Gonzalez for cellulitis and congestive heart failure. Time: 16:00 Vital Signs Temperature 97.7 F 01/15/17 12:27 Pulse Rate 85 01/15/17 12:27 Respiratory Rate 16 01/15/17 12:27 Blood Pressure 105/69 01/15/17 12:27 O2 Sat by Pulse Oximetry 94 01/15/17 12:27 Temperature 97.7 F 01/15/17 12:27 Pulse Rate 80 01/15/17 16:08 Respiratory Rate 15 01/15/17 16:08 Blood Pressure 92/58 01/15/17 16:08 O2 Sat by Pulse Oximetry 98 01/15/17 16:08 Oxygen Delivery Oxygen Delivery Nasal Cannula Shortness of Breath/Dyspnea - Medical Records Medical records reviewed: Yes I reviewed the patient's medical records. - Lab Data Lab results reviewed: Yes I reviewed the patient's lab results. Result diagrams: 01/15/17 13:37 01/15/17 13:37 Lab Results 01/15/17 01/15/17 01/15/17 Range/Units 12:30 13:37 13:37 WBC 9.2 (4.3-11.1) K/mcL RBC 4.23 (4.19-5.50) M/mcL Hgb 12.9 (12.9-16.9) g/dL Hct 39.5 (37.5-50.1) % MCV 93.4 (83.0-100.0) fL MCH 30.5 (28.0-33.3) pg MCHC 32.7 (31.6-35.5) g/dL RDW 15.4 H (11.5-14.5) % Plt Count 267 (140-400) K/mcL MPV 10.4 (9.4-12.4) fL Immature Gran % 1.7 (0-4) % Seg Neutrophils % 74.8 % Lymphocytes % 14.6 % Monocytes % 7.5 % Eosinophils % 1.0 % Basophils % 0.4 % Neutrophils # 6.9 (1.6-8.9) K/mcL Lymphocytes # 1.3 (0.6-4.6) K/mcL Monocytes # 0.7 (0.0-1.3) K/mcL Eosinophils # 0.1 (0.0-0.6) K/mcL Basophils # 0.0 (0.0-0.2) K/mcL PT (9.4-12.1) Seconds INR Sodium 134 L (136-145) mEq/L Potassium 4.1 (3.5-4.5) mEq/L Chloride 96 L (98-109) mEq/L Carbon Dioxide 28 (19-29) mEq/L BUN 32 H (8-26) mg/dL Creatinine 1.65 H (0.72-1.25) mg/dL Est GFR ( Amer) 51 L (> 60) Est GFR (Non-Af Amer) 42 L (> 60) BUN/Creatinine Ratio 19 (6-26) Glucose 253 H (70-99) mg/dL POC Glucose 237 H (58-89) Calculated Osmolality 293 (280-300) Lactic Acid (0.5-2.2) mmol/L Calcium 9.5 (8.6-10.8) mg/dL Troponin I (0-0.03) ng/mL B-Natriuretic Peptide (0-100) pg/mL 01/15/17 01/15/17 01/15/17 Range/Units 13:37 13:37 13:37 WBC (4.3-11.1) K/mcL RBC (4.19-5.50) M/mcL Hgb (12.9-16.9) g/dL Hct (37.5-50.1) % MCV (83.0-100.0) fL MCH (28.0-33.3) pg MCHC (31.6-35.5) g/dL RDW (11.5-14.5) % Plt Count (140-400) K/mcL MPV (9.4-12.4) fL Immature Gran % (0-4) % Seg Neutrophils % % Lymphocytes % % Monocytes % % Eosinophils % % Basophils % % Neutrophils # (1.6-8.9) K/mcL Lymphocytes # (0.6-4.6) K/mcL Monocytes # (0.0-1.3) K/mcL Eosinophils # (0.0-0.6) K/mcL Basophils # (0.0-0.2) K/mcL PT (9.4-12.1) Seconds INR Sodium (136-145) mEq/L Potassium (3.5-4.5) mEq/L Chloride (98-109) mEq/L Carbon Dioxide (19-29) mEq/L BUN (8-26) mg/dL Creatinine (0.72-1.25) mg/dL Est GFR ( Amer) (> 60) Est GFR (Non-Af Amer) (> 60) BUN/Creatinine Ratio (6-26) Glucose (70-99) mg/dL POC Glucose (58-89) Calculated Osmolality (280-300) Lactic Acid 2.1 (0.5-2.2) mmol/L Calcium (8.6-10.8) mg/dL Troponin I 0.03 (0-0.03) ng/mL B-Natriuretic Peptide 1072 H (0-100) pg/mL 01/15/17 Range/Units 13:37 WBC (4.3-11.1) K/mcL RBC (4.19-5.50) M/mcL Hgb (12.9-16.9) g/dL Hct (37.5-50.1) % MCV (83.0-100.0) fL MCH (28.0-33.3) pg MCHC (31.6-35.5) g/dL RDW (11.5-14.5) % Plt Count (140-400) K/mcL MPV (9.4-12.4) fL Immature Gran % (0-4) % Seg Neutrophils % % Lymphocytes % % Monocytes % % Eosinophils % % Basophils % % Neutrophils # (1.6-8.9) K/mcL Lymphocytes # (0.6-4.6) K/mcL Monocytes # (0.0-1.3) K/mcL Eosinophils # (0.0-0.6) K/mcL Basophils # (0.0-0.2) K/mcL PT 31.8 H (9.4-12.1) Seconds INR 2.9 Sodium (136-145) mEq/L Potassium (3.5-4.5) mEq/L Chloride (98-109) mEq/L Carbon Dioxide (19-29) mEq/L BUN (8-26) mg/dL Creatinine (0.72-1.25) mg/dL Est GFR ( Amer) (> 60) Est GFR (Non-Af Amer) (> 60) BUN/Creatinine Ratio (6-26) Glucose (70-99) mg/dL POC Glucose (58-89) Calculated Osmolality (280-300) Lactic Acid (0.5-2.2) mmol/L Calcium (8.6-10.8) mg/dL Troponin I (0-0.03) ng/mL B-Natriuretic Peptide (0-100) pg/mL - Radiology Data Radiology results reviewed: Yes I reviewed the patient's radiology results. Chest X-Ray 01/15/17 12:59 IMPRESSION: Findings suggest congestive heart failure D/ / Andrés Woo MD / Andrés Woo MD Interpreting Provider: Andrés Woo MD Chest X-Ray 01/15/17 12:59 IMPRESSION: Findings suggest congestive heart failure D/ / Andrés Woo MD / Andrés Woo MD Interpreting Provider: Andrés Woo MD Foot CT 01/15/17 13:00 IMPRESSION: 1. Pronounced subcutaneous edema involving the visualized ankle and foot. Recommend clinical correlation for cellulitis. No organized drainable fluid collection identified. Note is also made of fairly symmetric severe subcutaneous edema of the partially visualized contralateral right ankle. 2. There are erosive changes of the 1st metatarsal head. Small mildly complex 1st metatarsal joint effusion also present with hyperattenuating density surrounding the 1st metatarsophalangeal joint. Findings are favored to reflect gout of the 1st metatarsophalangeal joint with surrounding tophus. Infectious process would be difficult to exclude. Recommend correlation with patient history. Prior comparison radiographs if available would also be of benefit. 3. 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 4. Atherosclerotic disease. D/ / Solitario Goldstein MD / Solitario Goldstein MD Interpreting Provider: Solitario Goldstein MD - EKG Data EKG attestation: Yes I reviewed and interpreted this EKG. EKG results narrative: EKG done at 1240 shows electronic ventricular paced rhythm with a rate of [address] depression noted in leads V1 and V2. Unchanged from prior EKG done 12/26/2016.
[2017-01-15] MEDS ORDERED: Furosemide 40 MG/4 ML VIAL IVP ONE (13:37)
[2017-01-15] MEDS ORDERED: Piperacillin/Tazobactam 3.375 GM in D5% in Water (Mini-Bag+) 100 ML IVPB ONE (13:41)
[2017-01-15 13:54] LABS: Basophils % 0.4 %; Eosinophils # 0.1 K/mcL (0.0-0.6); Hematocrit 39.5 % (37.5-50.1); Hemoglobin 12.9 g/dL (12.9-16.9); Immature Granulocytes % 1.7 % (0-4); Lymphocytes # 1.3 K/mcL (0.6-4.6); Lymphocytes % 14.6 %; Mean Corpuscular HGB Conc 32.7 g/dL (31.6-35.5); Mean Corpuscular Hemoglobin 30.5 pg (28.0-33.3); Mean Corpuscular Volume 93.4 fL (83.0-100.0); Mean Platelet Volume 10.4 fL (9.4-12.4); Monocytes # 0.7 K/mcL (0.0-1.3); Monocytes % 7.5 %; Neutrophils # 6.9 K/mcL (1.6-8.9); Platelet Count 267 K/mcL (140-400); Red Blood Count 4.23 M/mcL (4.19-5.50); Red Cell Distribution Width 15.4 % (11.5-14.5); Segmented Neutrophils % 74.8 %
[2017-01-15] MEDS ORDERED: 0.9 % Sodium Chloride 1,000 ML IVC ONE (13:54)
--- NOTE | 2017-01-15 13:54 | Emergency Department Note ---
START Narrative - START START: I examined this patient and my medical decision-making was reviewed with the Resident Physician. I agree with the documented findings, disposition and treatment plan as described except to the extent set forth below. 61 year old male with HX of CHF and diabetes and states that two days ago he noticed increased redness and swelling to his right foot that started to streak up his foot today without fevers at home or increase in his CHF symptoms. He has strong pedal pulses and otherwise neurovascularly intact. PAtinet do have open weeping areas between his toes and this jaramillo sappear to be a severe case of cellulitis, we will rule out osteomyelitis with CT and necrotizing fascitis and then admit. IV ABX started with IVf.
[2017-01-15 13:57] LABS: INR 2.9; Prothrombin Time 31.8 Seconds (9.4-12.1)
[2017-01-15] MEDS ORDERED: Vancomycin 2,000 MG in D5% in Water 250 ML IVPB SCH (14:00)
[2017-01-15 14:08] LABS: Calcium 9.5 mg/dL (8.6-10.8); Potassium 4.1 mEq/L (3.5-4.5)
[2017-01-15] MEDS ORDERED: Vancomycin 2,000 MG in D5% in Water 500 ML IVPB ONE (14:16)
[2017-01-15] MEDS ORDERED: Ondansetron 4 MG/2 ML VIAL IVP PRN (19:44)
[2017-01-15] MEDS ORDERED: Acetaminophen 325 MG TABLET PO PRN (19:44)
[2017-01-15] MEDS ORDERED: Naloxone 0.4 MG/ML INJ IVP PRN (19:44)
[2017-01-15] MEDS ORDERED: *HR* Dextrose 50 % in Water (Syg) 50 ML SYRINGE IVP PRN (23:07)
[2017-01-15] MEDS ORDERED: Dextrose Gel 15 GM PO PRN ×2 (23:07)
[2017-01-15] MEDS ORDERED: D5% in Water 1,000 ML IVC PRN (23:07)
[2017-01-15] MEDS ORDERED: Nitroglycerin 0.4 MG TAB.SUBL SL PRN (23:10)
[2017-01-15] MEDS ORDERED: *HR* Warfarin 5 MG TABLET PO SCH (23:15)
--- NOTE | 2017-01-15 23:17 | Internal Med History&Physical ---
<Shila Romero - Last Filed: 01/16/17 00:24> Date of Encounter: 01/16/17 Internal Medicine - H&P: HPI History of present illness: Mr. Lance is a 61 year old male Internal Medicine - H&P: Meds Amiodarone [Cordarone] 200 mg PO DAILY 09/06/15 [History] Levothyroxine [Synthroid] 50 mcg PO HS 09/06/15 [History] Metoprolol Succinate 100 mg PO DAILY 09/06/15 [History] Nitroglycerin [Nitrostat] 0.4 mg SL Q5M PRN 09/06/15 [History] Oxygen 2 l NS AD 09/06/15 [History] Warfarin [Coumadin] 5 mg PO SUMOWEFRSA 09/06/15 [History] Warfarin [Coumadin] 7.5 mg PO TUTH 11/13/15 [History] Aspirin 81 mg PO DAILY 30 Days tab.chew 11/16/15 [Rx] Albuterol Sulfate [Albuterol Inhaler] 2 puff IH Q6HR PRN 03/14/16 [History] Torsemide 100 mg PO BID 03/14/16 [History] HYDROcodone/Acet 10/325 mg [Dupree 10-325 mg] 1 tab PO BID PRN 12/19/16 [History] Tamsulosin [Flomax] 0.4 mg PO DAILY 12/19/16 [History] Cholecalciferol (D-3) [Vitamin D] 1,000 unit PO DAILY 12/20/16 [History] Lisinopril [Zestril] 5 mg PO DAILY tablet 12/21/16 [Rx] Acetaminophen [Tylenol] 650 mg PO Q6HR PRN tablet 12/28/16 [Rx] Fluticasone/Vilanterol [Breo Ellipta 100-25 Mcg INH] 1 each IH DAILY #1 blst.w.dev 12/28/16 [Rx] Simvastatin [Zocor] 40 mg PO HS tablet 12/28/16 [Rx] Nystatin [Nystatin Suspension] 100,000 units PO QID #120 ml 12/31/16 [Rx] Subcutaneous Insulin Pump [T:Slim] 1 each SQ AD PRN 01/15/17 [History] 3 Allergy/AdvReac Type Severity Reaction Status Date / Time metformin Allergy Hives Verified 12/19/16 10:37 pioglitazone [From Actos] Allergy Hives Verified 12/19/16 10:37 trazodone Allergy Hives Verified 12/19/16 10:37 All Systems PM: A 10-system review of systems was performed and is negative for pertinent findings except as documented above in the HPI. - Constitutional Vitals: Temp Pulse Resp BP Pulse Ox 98.4 F 80 18 106/72 94 01/15/17 18:25 01/15/17 18:25 01/15/17 18:25 01/15/17 18:25 01/15/17 19:50 Internal Med - H&P Results - Labs CBC & Chem 7: 01/15/17 13:37 01/15/17 13:37 Labs: Cardiac Enzymes 01/15/17 Range/Units 20:01 Troponin I 0.03 (0-0.03) ng/mL - Attending Attestation [place] seen and examined by myself and plan discussed with nurse practitioner and I agree with the findings. Patient came in with the bilateral foot cellulitis. This has been going on for a few days. On examination both lower extremities are severely edematous and there is cellulitis and both feet more on the left than on the right. Left-sided toes are black and blue and cold. Patient is already on Coumadin with INR 2.9 tonight. We plan to do both venous and arterial Dopplers to see his blood supply to his legs. Wound culture have been obtain and vancomycin and Zosyn have been a started. We will apply SCDs to both his feet in order to mechanically facilitate reducing swelling and increase his Lasix to IV 80 twice a day plus metolazone 10 orally for 2 days. He should be diuresed aggressively. He is on nebulizer treatment for his lungs unfortunately he is a still is smoking and counseling provided. If appear necessary wound care can be in fall of as well as podiatry and if arterial Doppler is significant and vascular surgery can also involve later. His blood sugar control should be optimal in order to facilitate healing. <Mariama Armstrong - Last Filed: 01/16/17 01:52> Date of Encounter: 01/15/17 Time of Encounter: 21:00 Assessment and Plan (1) Cellulitis Current visit: Yes Status: Acute 1 patient's right foot is swollen red toes are cool and dusky. She has weak Doppler pulses. There is drainage between the the great toe and second. Culture drainage from foot. Blood cultures have been obtained. Initiated on vancomycin and Zosyn which we will continue 2 we will obtained venous and arterial Doppler of lower extremity to assess arterial and venous flow.-Pending results will consult vascular We will continue with Lasix and metolazone to help decrease swelling and improves circulation to lower extremity Pulse checks per nursing Qualifiers: Site of cellulitis: extremity Site of cellulitis of extremity: lower extremity Laterality: right Qualified Code(s): L03.115 - Cellulitis of right lower limb (2) Acute on chronic systolic (congestive) heart failure Current visit: Yes Status: Acute Patient has been extensively increasing shortness of breath and lower extremity edema that is weeping bilaterally is echo revealed EF of 25% with severe systolic dysfunction. Continue with Toprol XL and lisinopril Lasix IV Monitor intake and output daily weights 1500 mL fluid restriction Continue his current monitoring Monitor electrolytes and replace as needed (3) COPD (chronic obstructive pulmonary disease) Current visit: No Status: Chronic Patient has been expressing increasing shortness of breath he does have some expiratory wheezes. We will continue with oxygen titrated maintain SPO2 greater than 92% Continue with bronchodilators Encouraged patient to stop smoking offered nicotine patch which he declined Qualifiers: COPD type: unspecified COPD Qualified Code(s): J44.9 - Chronic obstructive pulmonary disease, unspecified (4) Atrial fibrillation Current visit: No Status: Chronic Presently he is rate controlled we will continue with Coumadin and Toprol-XL as well as amiodarone. Daily INRs pharmacy to dose Coumadin goal is to maintain INR 2-3 Qualifiers: Atrial fibrillation type: chronic Qualified Code(s): I48.2 - Chronic atrial fibrillation (5) Hypothyroidism Current visit: No Status: Chronic Continue with Synthroid Qualifiers: Hypothyroidism type: unspecified Qualified Code(s): E03.9 - Hypothyroidism , unspecified (6) CAD (coronary artery disease) Current visit: No Status: Chronic Presently not expressing any chest pain and continued with aspirin and statin beta gemini and dane inhibitor Nitrates as needed for chest pain Continue with oxygen Continue his cardiac monitoring Qualifiers: Coronary Disease-Associated Artery/Lesion type: unspecified vessel or lesion type [place] vs. transplanted heart: [place] heart Associated angina: without angina Qualified Code(s): I25.10 - Atherosclerotic heart disease of [place] coronary artery without angina pectoris (7) DVT prophylaxis Current visit: No Status: Acute Patient is on Coumadin (8) DM (diabetes mellitus) Current visit: No Status: Chronic Patient is on insulin pump he states that his blood sugars have been erratic at times very high and at times low. Suspect this is related to infectious state. We will stop his insulin pump and place him on sliding scale. Accu-Cheks before meals at bedtime Diabetic diet Qualifiers: Diabetes mellitus type: type 2 Diabetes mellitus complication status: with unspecified complications Diabetes mellitus correction insulin use: with correction use Qualified Code(s): E11.8 - Type 2 diabetes mellitus with unspecified complications (9) CKD (chronic kidney disease) Current visit: No Status: Chronic 1 patient has history of CAD status 3. To be stable despite his creatinine is 1.65 which is down from previous admission at 2.10. We will continue to monitor 2 avoid nephrotoxins 3 monitor intake and output daily weights 4 renal dose antibiotics Qualifiers: Chronic kidney disease stage: stage 3 (moderate) Qualified Code(s): N18.3 - Chronic kidney disease, stage 3 (moderate) (10) Tobacco abuse Current visit: No Status: Chronic Encourage patient to stop smoking and offered nicotine patch which patient declined Internal Medicine - H&P: HPI Chief complaint: weeping wound Admitted From: Emergency Dept Plans for Post Hospital Care: Home History of present illness: Mr. Lance is a 61 year old male has focal history of CHF COPD oxygen dependent his cardiomyopathy coronary disease with stent placement status post CABG pacemaker diabetes hypertension and chronic atrial fibrillation anticoagulated on Coumadin hypothyroid C KD stage III and current smoker. According to the patient he has been experiencing lower extremity edema as well as shortness of breath. He stated that he has had difficulty controlling his blood sugars he is on an insulin pump. At times he is available be very high and then he will bottom out. States he normally is not low. He was recently hospitalized at this facility on December 21 [id number] for COPD exacerbation and CHF as well as pneumonia. He was given prednisone and Levaquin on discharge. He feels ever since he has been home he has gradually gotten worse. Over the past 3 days the swelling his legs have developed blisters and has been leaking serosanguineous fluid. Shortness of breath is worse upon exertion despite the use of oxygen and bronchodilators. He denies any fevers chills cough or change in sputum production. Patient's right foot is red and swollen and tender to touch. According to ER records CT of foot reveal no osteomyelitis however is consistent with cellulitis. Lab work did reveal lactate 2.1 troponin 0.03 his BNP was 1072 creatinine is 1.65 chest x-ray suggestive of CHF. He was given IV Lasix blood cultures were obtained and antibiotics initiated. He has been admitted for further workup and evaluation. Aamir patient appears to be hemodynamically stable his right foot is red and swollen tender to palpation second digit appears to be dusky. I did review this case with Dr. Romero who agrees with plan Past Med Surg Social Fam HX - Past Medical History Medical history: atrial fibrillation, cardiomyopathy, CHF, COPD, coronary artery disease, diabetes, hyperlipidemia, hypertension Psychiatric history: no psych history - Past Surgical History Surgical History: angioplasty/stent, coronary bypass (CABG), pacemaker/AICD - Social History Smoking Status: Current every day smoker Packs per day: 1/4 pack Smokeless Tobacco Status: No Alcohol use: none Drug use: none - Family History Mother Living Status: Age at : 87 Cause of : natural Father Living Status: Age at : 76 Cause of : [place] Hx Family Cardiac Disorders: Yes (CHF, multiple heart attacks) All Systems PM: A 10-system review of systems was performed and is negative for pertinent findings except as documented above in the HPI. - Constitutional Constitutional: weight gain, no chills, no fever(s), no night sweats - EENT Eyes: no change in vision, no discharge, no pain, no photophobia Nose, mouth and throat: no dysphagia, no nasal discharge, no neck pain, no sore throat - Cardiovascular Cardiovascular ROS IM: dyspnea, dyspnea on exertion, edema, no chest pain, no diaphoresis, no lightheadedness, no palpitations, no syncope - Respiratory Respiratory: as per HPI, cough, dyspnea on exertion - Gastrointestinal Gastrointestinal: no abdominal pain, no diarrhea, no hematemesis, no hematochezia, no melena, no nausea, no vomiting - Musculoskeletal Musculoskeletal ROS IM: no numbness, no tingling - Integumentary Integumentary IM: no rash, no unusual bruising - Neurological Neurological ROS: no confusion, no convulsions, no focal weakness, no numbness, no tingling, no tremor(s) - Hematologic/Lymphatic Hematologic/Lymphatic: no easy bruising - Constitutional Vitals: Temp Pulse Resp BP Pulse Ox 98.4 F 80 18 106/72 94 01/15/17 18:25 01/15/17 18:25 01/15/17 18:25 01/15/17 18:25 01/15/17 19:50 General appearance: Present: A&O X 3, answers questions appropriately - Head Head exam: Present: atraumatic, normocephalic - Eye Eye exam: Present: PERRL, conjuntiva pink, sclera anicteric Pupils: Present: PERRL - Neck Neck exam general surgery: Present: supple, trachea midline. Absent: lymphadenopathy - Respiratory Respiratory exam: Present: wheezes. Absent: accessory muscle use, rales, rhonchi - Cardiovascular Cardiovascular exam: Present: RRR, +S1, +S2. Absent: diastolic murmur, gallop, rubs, systolic murmur - GI/Abdominal GI/Abdominal exam: Present: normal bowel sounds, soft, no peritoneal signs. Absent: distended, tenderness - Extremities Exam Extremities exam: Present: pedal edema, tenderness, warm, radial pulses palpable and symmetrical. Absent: calf tenderness, cyanotic - Expanded Lower Extremities Exam Foot/Toe exam: Present: erythema, swelling, tenderness Internal Med - H&P Results - Labs CBC & Chem 7: 01/15/17 13:37 01/15/17 13:37 Labs: Cardiac Enzymes 01/15/17 Range/Units 20:01 Troponin I 0.03 (0-0.03) ng/mL - Diagnostic Studies Other Images Additional comments: Chest X-Ray 01/15/17 12:59 IMPRESSION: Findings suggest congestive heart failure D/ / Andrés Woo MD / Andrés Woo MD Interpreting Provider: Andrés Woo MD Foot CT 01/15/17 13:00 IMPRESSION: 1. Pronounced subcutaneous edema involving the visualized ankle and foot. Recommend clinical correlation for cellulitis. No organized drainable fluid collection identified. Note is also made of fairly symmetric severe subcutaneous edema of the partially visualized contralateral right ankle. 2. There are erosive changes of the 1st metatarsal head. Small mildly complex 1st metatarsal joint effusion also present with hyperattenuating density surrounding the 1st metatarsophalangeal joint. Findings are favored to reflect gout of the 1st metatarsophalangeal joint with surrounding tophus. Infectious process would be difficult to exclude. Recommend correlation with patient history. Prior comparison radiographs if available would also be of benefit. 3. 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 4. Atherosclerotic disease. D/ / Solitario Goldstein MD / Solitario Goldstein MD Interpreting Provider: Solitario Goldstein MD
[2017-01-15] MEDS ORDERED: Albuterol 2.5 MG/3 ML NEBULIZER IH PRN (23:32)
[2017-01-16] MEDS: *HR* HYDROcodone/Acet 10/325 mg TABLET PO PRN ×2 (00:11→06:20)
[2017-01-16] MEDS: Piperacillin/Tazobactam 3.375 GM in D5% in Water (Mini-Bag+) 100 ML IVPB SCH ×3 (00:12→17:33)
[2017-01-16] MEDS ORDERED: metOLazone 5 MG TABLET PO ONE (00:23)
[2017-01-16] MEDS ORDERED: Furosemide 80 MG in 0.9 % Sodium Chloride 50 ML IVPB SCH (00:30)
[2017-01-16] MEDS: Ipratropium/Albuterol Neb 3 ML IH SCH ×6 (03:28→21:19)
[2017-01-16 03:46] LABS: Basophils # 0.1 K/mcL (0.0-0.2); Basophils % 0.7 %; Eosinophils # 0.2 K/mcL (0.0-0.6); Eosinophils % 2.4 %; Hematocrit 40.4 % (37.5-50.1); Hemoglobin 13.2 g/dL (12.9-16.9); Immature Granulocytes % 1.7 % (0-4); Lymphocytes # 1.7 K/mcL (0.6-4.6); Lymphocytes % 16.5 %; Mean Corpuscular HGB Conc 32.7 g/dL (31.6-35.5); Mean Corpuscular Hemoglobin 30.5 pg (28.0-33.3); Mean Corpuscular Volume 93.3 fL (83.0-100.0); Mean Platelet Volume 11.1 fL (9.4-12.4); Monocytes # 1.3 K/mcL (0.0-1.3); Monocytes % 12.8 %; Neutrophils # 6.7 K/mcL (1.6-8.9); Platelet Count 287 K/mcL (140-400); Red Blood Count 4.33 M/mcL (4.19-5.50); Red Cell Distribution Width 15.4 % (11.5-14.5); Segmented Neutrophils % 65.9 %
[2017-01-16 03:52] LABS: INR 2.7; Prothrombin Time 29.7 Seconds (9.4-12.1)
[2017-01-16 04:06] LABS: Calcium 9.1 mg/dL (8.6-10.8); Magnesium 2.1 mg/dL (1.6-2.6); Potassium 4.1 mEq/L (3.5-4.5)
[2017-01-16] MEDS ORDERED: Vancomycin 1,500 MG in D5% in Water 250 ML IVPB SCH (05:00)
[2017-01-16] MEDS ORDERED: Vancomycin 2,000 MG in D5% in Water 250 ML IVPB SCH (09:00)
--- NOTE | 2017-01-16 09:21 | Internal Med Progress Note ---
<Ada Grigsby - Last Filed: 01/16/17 21:19> Date of Encounter: 01/16/17 Time of Encounter: 08:45 - Assessment and plan (1) CHF (congestive heart failure) Current Visit: Yes Status: Acute Assessment and plan: - States that shortness of breath is worse today. - BNP of 1072. Orthopnea. CXR showed findings suggestive of CHF. -most recent echo LVEF= 25% in march 2016. -continue metolazone and lasix, fluid restriction of 1500 mL -replace electrolytes as needed -continue monitoring with morning labs Qualifiers: Congestive heart failure type: systolic Congestive heart failure chronicity : chronic Qualified Code(s): I50.22 - Chronic systolic (congestive) heart failure (2) PVD (peripheral vascular disease) Current Visit: Yes Status: Acute Assessment and plan: -KATIANA results pending -venous reflux evaluation pending -Possible cellulitis complicated by PVD. -vascular, wound care, and podiatry consulted, appreciate recommendations - Recommend limb elevation, unaboot, compression, continued abx (vanc, zosyn) from vascular and podiatry - Wound care feels as if compression is contraindicated given possibility for increased fluid overload of heart and lungs. - We will elevate, compress limb with abx and closely monitor for signs of increased fluid overload. (3) COPD (chronic obstructive pulmonary disease) Current Visit: No Status: Chronic Assessment and plan: - Dyspnea complaint more likely CHF exacerbation given clinical picture, lab and imaging results - Continue home meds. Qualifiers: COPD type: unspecified COPD Qualified Code(s): J44.9 - Chronic obstructive pulmonary disease, unspecified (4) DM (diabetes mellitus) Current Visit: No Status: Chronic Assessment and plan: -Hgb A1c 8.6% -chronic and uncontrolled; extremely labile per patient. 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 Qualified Code(s): E11.8 - Type 2 diabetes mellitus with unspecified complications (5) CKD (chronic kidney disease) Current Visit: Yes Status: Chronic Assessment and plan: -Creatinine of 1.56 today, improved over last admission (Creatinine ranged 1.8 to 2.0) -avoid nephrotoxic drugs and renally dose drugs when possible -continue to monitor in the setting of vancomycin via morning labs Qualifiers: Chronic kidney disease stage: stage 3 (moderate) Qualified Code(s): N18.3 - Chronic kidney disease, stage 3 (moderate) (6) Atrial fibrillation Current Visit: No Status: Chronic Assessment and plan: -rate controlled with toprol XL and amiodarone, continue -Anti-coagulated on warfarin, INR 2.7 with pharmacy to dose Qualifiers: Atrial fibrillation type: chronic Qualified Code(s): I48.2 - Chronic atrial fibrillation (7) DVT prophylaxis Current Visit: No Status: Acute Assessment and plan: -continue anti-coagulation with warfarin, pharmacy to dose - Time Spent With Patient 25 - 35 minutes - Subjective Interval history: Pt seen and examined this morning at bedside. He complains his SOB is worse today than when he came in. Admits to cough that is made worse by laying down, wheezing, and an occasional heart palpitation. Denies LE paresthesias, LE pain, fever, chills, chest pain, nausea, vomiting. - Constitutional Vitals: Temp Pulse Resp BP Pulse Ox 97.6 F 80 16 106/69 93 01/16/17 07:14 01/16/17 07:14 01/16/17 07:38 01/16/17 07:14 01/16/17 07:38 General appearance: Present: A&O X 3, answers questions appropriately Exam: Gen: Vitals noted. No acute distress. HEENT: EOMI, normocephalic, atraumatic Cardiac: RRR, no murmur, +S1/S2 Pulmonary: auscultation difficult 2/2 body habitus, anterior apices were without wheezes or rhonchi, normal respiratory effort, SpO2 93-97% on 2L NC Abdomen: soft, nontender, BS present, + fluid wave Extremities: moves all extremities, marked b/l pitting edema of lower legs and feet, nontender to palpation; Rt foot has gauze dressing and Rt toes are cold, purple-blue, capillary refill >5 sec Neuro: AAOx3, appropriately answers questions Internal Medicine: Result - Labs CBC & Chem 7: 01/16/17 02:37 01/16/17 02:37 Labs: Short CBC 01/16/17 Range/Units 02:37 WBC 10.1 (4.3-11.1) K/mcL Hgb 13.2 (12.9-16.9) g/dL Hct 40.4 (37.5-50.1) % Plt Count 287 (140-400) K/mcL Neutrophils # 6.7 (1.6-8.9) K/mcL BMP 01/16/17 02:37 Sodium 134 L Potassium 4.1 Chloride 98 Carbon Dioxide 26 BUN 30 H Creatinine 1.56 H Glucose 230 H Calcium 9.1 Cardiac Enzymes 01/15/17 01/16/17 01/16/17 Range/Units 20:01 02:37 08:02 Troponin I 0.03 0.03 0.03 (0-0.03) ng/mL - ABG Interpretation ABG results: PT/INR, D-dimer PT 29.7 Seconds (9.4-12.1) H 01/16/17 02:37 Consult Discharge Plan - Plan Referrals: Lilo Beltran MD [Primary Care Provider] - <Jason Eaton - Last Filed: 01/17/17 16:33> Date of Encounter: 01/16/17 - Constitutional Vitals: Temp Pulse Resp BP Pulse Ox 97.9 F 80 20 91/58 98 01/17/17 15:18 01/17/17 15:18 01/17/17 15:18 01/17/17 15:18 01/17/17 15:18 Internal Medicine: Result - Labs CBC & Chem 7: 01/17/17 02:43 01/17/17 02:43 Labs: Short CBC 01/17/17 Range/Units 02:43 WBC 10.1 (4.3-11.1) K/mcL Hgb 13.2 (12.9-16.9) g/dL Hct 39.8 (37.5-50.1) % Plt Count 291 (140-400) K/mcL Neutrophils # 6.5 (1.6-8.9) K/mcL BMP 01/17/17 02:43 Sodium 134 L Potassium 3.4 L Chloride 96 L Carbon Dioxide 28 BUN 31 H Creatinine 1.59 H Glucose 167 H Calcium 9.4 - ABG Interpretation ABG results: PT/INR, D-dimer PT 26.9 Seconds (9.4-12.1) H 01/17/17 02:43 - Impressions Impressions Chest X-Ray 01/17/17 10:31 IMPRESSION: No significant interval change in findings compatible with mild pulmonary interstitial edema. D/ / Samson Murphy MD / Samson Murphy MD Interpreting Provider: Samson Murphy MD - Attending Attestation I examined this patient and my medical decision-making was reviewed with the Resident Physician 01/16/17. I agree with the documented findings, disposition and treatment plan as described except to the extent set forth below. Please see event note of this date.
[2017-01-16] MEDS: Metoprolol XL (24 HR) Succ 50 MG TAB.ER.24H PO SCH (09:31)
[2017-01-16] MEDS: *HR* Amiodarone 200 MG TABLET PO SCH (09:31)
[2017-01-16] MEDS: Aspirin 81 MG TAB.CHEW PO SCH (09:32)
[2017-01-16] MEDS: Nystatin SUSP 5 ML UD.LIQ PO SCH ×4 (09:32→22:08)
[2017-01-16] MEDS: metOLazone 5 MG TABLET PO SCH (09:32)
[2017-01-16] MEDS: (Breo Ellipta 100-25 Mcg Inh) IH SCH (09:33)
[2017-01-16] MEDS: Insulin LISPRO 300 UNITS/3 ML VIAL SQ SCH ×4 (09:33→22:08)
[2017-01-16] MEDS: Cholecalciferol (D-3) 1,000 UNIT TABLET PO SCH (09:33)
--- NOTE | 2017-01-16 12:07 | Vascular/Endovasc Consult Note ---
Date of Encounter: 01/16/17 Time of Encounter: 11:15 Assessment and Plan (1) Chronic venous hypertension w/ulcer and inflammation involv both sides Current Visit: Yes Status: Chronic The pathophysiology and natural history of venous disorders was discussed with the patient and all questions were answered. The patient has bialteral lower extremity edema, stasis dermatitis and superficial ulceration. The patient has significant serous drainage from his left foot ulcerations. Leg elevation and compression is recommended. The patient will also require wound care and may require [place] boot therapy. The patient will be scheduled for a venous reflux evaluation. He has strong pedal signals bilaterally by doppler. An ankle brachial index has been ordered. (2) PVD (peripheral vascular disease) Current Visit: Yes Status: Acute (3) CAD (coronary artery disease) Current Visit: No Status: Chronic Qualifiers: Coronary Disease-Associated Artery/Lesion type: unspecified vessel or lesion type [place] vs. transplanted heart: [place] heart Associated angina: without angina Qualified Code(s): I25.10 - Atherosclerotic heart disease of 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 Lance is a 61 year old male with a history of COPD, hyperlipidemia, diabetes , atrial fibrillation, hypertension and tobacco abuse. He presented to the ER with pain, tenderness and edema in his feet. He was noted to have cellulitis. He was admitted and started on intravenous antibiotics. He was also noted to be experiencing symptoms of congestive heart failure. Due to his ulcerations and the inability to palpate his pulses, vascular surgery was consulted for further evaluation. The patient deneis disabling claudication, rest pain or gangrene. He denies fevers or chills. He denies chest pain or shortness of breath. Past Med Surg Social Fam HX - Past Medical History Medical history: atrial fibrillation, cardiomyopathy, CHF, COPD, coronary artery disease, diabetes, hyperlipidemia, hypertension Psychiatric history: no psych history - Past Surgical History Surgical History: angioplasty/stent, coronary bypass (CABG), pacemaker/AICD - Social History Smoking Status: Current every day smoker Packs per day: 1/4 pack Smokeless Tobacco Status: No Alcohol use: none Drug use: none - Family History Mother Living Status: Age at : 87 Cause of : natural Father Living Status: Age at : 76 Cause of : [place] Hx Family Cardiac Disorders: Yes (CHF, multiple heart attacks) Medications and Allergies Amiodarone [Cordarone] 200 mg PO DAILY 09/06/15 [History] Levothyroxine [Synthroid] 50 mcg PO HS 09/06/15 [History] Metoprolol Succinate 100 mg PO DAILY 09/06/15 [History] Nitroglycerin [Nitrostat] 0.4 mg SL Q5M PRN 09/06/15 [History] Oxygen 2 l NS AD 09/06/15 [History] Warfarin [Coumadin] 5 mg PO SUMOWEFRSA 09/06/15 [History] Warfarin [Coumadin] 7.5 mg PO TUTH 11/13/15 [History] Aspirin 81 mg PO DAILY 30 Days tab.chew 11/16/15 [Rx] Albuterol Sulfate [Albuterol Inhaler] 2 puff IH Q6HR PRN 03/14/16 [History] Torsemide 100 mg PO BID 03/14/16 [History] HYDROcodone/Acet 10/325 mg [[place] 10-325 mg] 1 tab PO BID PRN 12/19/16 [History] Tamsulosin [Flomax] 0.4 mg PO DAILY 12/19/16 [History] Cholecalciferol (D-3) [Vitamin D] 1,000 unit PO DAILY 12/20/16 [History] Lisinopril [Zestril] 5 mg PO DAILY tablet 12/21/16 [Rx] Acetaminophen [Tylenol] 650 mg PO Q6HR PRN tablet 12/28/16 [Rx] Fluticasone/Vilanterol [Breo Ellipta 100-25 Mcg INH] 1 each IH DAILY #1 blst.w.dev 12/28/16 [Rx] Simvastatin [Zocor] 40 mg PO HS tablet 12/28/16 [Rx] Nystatin [Nystatin Suspension] 100,000 units PO QID #120 ml 12/31/16 [Rx] Subcutaneous Insulin Pump [T:Slim] 1 each SQ AD PRN 01/15/17 [History] 3 Allergy/AdvReac Type Severity Reaction Status Date / Time metformin Allergy Hives Verified 12/19/16 10:37 pioglitazone [From Actos] Allergy Hives Verified 12/19/16 10:37 trazodone Allergy Hives Verified 12/19/16 10:37 All Systems Review: A 10-system review of systems was performed and is negative for pertinent findings except as documented above in the HPI. - Constitutional Constitutional: no chills, no fever(s) - Cardiovascular Cardiovascular: no chest pain at rest, no dyspnea at rest - Gastrointestinal Gastrointestinal: no abdominal pain Exam Vital Signs, Last 4 Hours Temp Pulse Resp BP Pulse Ox 01/16/17 11:33 14 93 01/16/17 11:22 97.9 F 80 14 116/65 94 General: Present: Conversant, No Apparent Distress HEENT: Present: Atraumatic, Trachea midline, Pupils equal Neck: Absent: JVD, Lymphadenopathy, Left Carotid bruit, Right Carotid bruit Cardiac: Present: Normal S1 and S2, No Murmur Lungs: Present: Normal Breath Sounds, No Wheeze, Rales, Rhonchi Neuro: Present: Alert and responsive, Motor nerves grossly intact, Sensory nerves grossly intact Abdomen: Present: Soft, Non-tender. Absent: Masses Vascular: Present: Pulse, normal (pedal signals polyphasic bilaterally,), Cyanosis (bilateral toes with venous congestion, brisk capillary refill), Edema (2+ edema bilateral legs and feet) Skin: Present: Wound/ulcer(s) (superficial venous ulcerations with significant serous drainage). Absent: No rashes noted on visualized skin (venous stasis dermatitis, venous stasis ulceration, cellulitis noted) Consult Discharge Plan - Plan Referrals: Lilo Beltran MD [Primary Care Provider] -
--- NOTE | 2017-01-16 12:53 | Electrocardiograph Report ---
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
[2017-01-16] MEDS ORDERED: *HR* HYDROcodone/Acet 10/325 mg TABLET PO PRN (14:24)
[2017-01-16] MEDS: Furosemide 40 MG/4 ML VIAL IVP SCH ×2 (15:45→22:31)
--- NOTE | 2017-01-16 17:30 | Podiatry Consult Note ---
Date of Encounter: 01/16/17 Time of Encounter: 17:00 Assessment and Plan (1) Great toe pain Current visit: Yes Status: Acute CT shows changes consistent with gout of left great toe Will obtain uric acid level Qualifiers: Laterality: left Qualified Code(s): M79.675 - Pain in left toe(s) (2) Cellulitis Current visit: Yes Status: Acute Marked erythema and edema of dorsal aspect of left foot consistent with cellulitis Toes dusky and cool #1 through #5 bilaterally Continue current antibiotic therapy- Zosyn and vancomycin - monitor kidneys Wound cultures were ordered and obtained from drainage of LLE Blood cultures have been obtained Continue to monitor VS and white count Qualifiers: Site of cellulitis: extremity Site of cellulitis of extremity: lower extremity Laterality: right Qualified Code(s): L03.115 - Cellulitis of right lower limb (3) PVD (peripheral vascular disease) Current visit: Yes Status: Acute (4) Chronic venous hypertension w/ulcer and inflammation involv both sides Current visit: Yes Status: Chronic Vascular on board Pulses noted to signal PT/DP bilaterally- however toes are noted to be dusky and cool, however likely related to severe edema, third spacing and weeping KATIANA and venous reflex studies have been ordered- will be completed tonight There are weeping, macerated ulcerations noted to webspaces of toes #1 through # 5 left, to entire plantar line of toes and along lateral aspect of left foot Please apply betadine, strips of maxsorb AG between toes and kerlex to LLE to absorb drainage and apply compression to decrease edema. Change BID or PRN- DO NOT ALLOW DRESSINGS TO BECOME SATURATED. Will consider application of HENRIQUE tomorrow after return of venous studies Kerlex to RLE BLE to be elevated at all times, do not allow to dangle CT negative for any fluid collection- shows erosive changes of 1st MTP joint- consistent with gout- will obtain uric acid to confirm-pronounced sub Q edema involving the foot and ankle Patient is not a candidate for MRI due to presence of pacer. 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 Lance is a 61 year old male who was consulted to our services regarding BLE edema and wounds to LLE. Patient has medical hx significant for COPD with recent exacerbation, CHF with recent hospitalization, DM (patient states a1c was 6-7% however he does not have his insulin pump now and glucose readings inpatient are mid 200, afib and is on coumadin. Patient states that he has chronic swelling of BLE however states that yesterday he noticed more swelling to LLE and noticed drainage was coming from his foot. Patient denies any fevers , chills, n/v or flu like symptoms. Patient was admitted, started on zosyn and vancomycin. Patient has consults to vascular, podiatry and wound care. Patient sitting up to chair at this time, BLE elevated. Past Med Surg Social Fam HX - Past Medical History Medical history: atrial fibrillation, cardiomyopathy, CHF, COPD, coronary artery disease, diabetes, hyperlipidemia, hypertension Psychiatric history: no psych history - Past Surgical History Surgical History: angioplasty/stent, coronary bypass (CABG), pacemaker/AICD - Social History Smoking Status: Current every day smoker Packs per day: 1/4 pack Smokeless Tobacco Status: No Alcohol use: none Drug use: none - Family History Mother Living Status: Age at : 87 Cause of : natural Father Living Status: Age at : 76 Cause of : [place] Hx Family Cardiac Disorders: Yes (CHF, multiple heart attacks) Medications and Allergies Amiodarone [Cordarone] 200 mg PO DAILY 09/06/15 [History] Levothyroxine [Synthroid] 50 mcg PO HS 09/06/15 [History] Metoprolol Succinate 100 mg PO DAILY 09/06/15 [History] Nitroglycerin [Nitrostat] 0.4 mg SL Q5M PRN 09/06/15 [History] Oxygen 2 l NS AD 09/06/15 [History] Warfarin [Coumadin] 5 mg PO SUMOWEFRSA 09/06/15 [History] Warfarin [Coumadin] 7.5 mg PO TUTH 11/13/15 [History] Aspirin 81 mg PO DAILY 30 Days tab.chew 11/16/15 [Rx] Albuterol Sulfate [Albuterol Inhaler] 2 puff IH Q6HR PRN 03/14/16 [History] Torsemide 100 mg PO BID 03/14/16 [History] HYDROcodone/Acet 10/325 mg [[place] 10-325 mg] 1 tab PO BID PRN 12/19/16 [History] Tamsulosin [Flomax] 0.4 mg PO DAILY 12/19/16 [History] Cholecalciferol (D-3) [Vitamin D] 1,000 unit PO DAILY 12/20/16 [History] Lisinopril [Zestril] 5 mg PO DAILY tablet 12/21/16 [Rx] Acetaminophen [Tylenol] 650 mg PO Q6HR PRN tablet 12/28/16 [Rx] Fluticasone/Vilanterol [Breo Ellipta 100-25 Mcg INH] 1 each IH DAILY #1 blst.w.dev 12/28/16 [Rx] Simvastatin [Zocor] 40 mg PO HS tablet 12/28/16 [Rx] Nystatin [Nystatin Suspension] 100,000 units PO QID #120 ml 12/31/16 [Rx] Subcutaneous Insulin Pump [T:Slim] 1 each SQ AD PRN 01/15/17 [History] 3 Allergy/AdvReac Type Severity Reaction Status Date / Time metformin Allergy Hives Verified 12/19/16 10:37 pioglitazone [From Actos] Allergy Hives Verified 12/19/16 10:37 trazodone Allergy Hives Verified 12/19/16 10:37 All Systems Reviewed: A 10-system review of systems was performed and is negative for pertinent findings except as documented above in the HPI. Physical Exam - Constitutional Vitals: Temp Pulse Resp BP Pulse Ox 97.6 F 80 16 114/70 89 01/16/17 15:37 01/16/17 15:37 01/16/17 15:55 01/16/17 15:37 01/16/17 15:55 Exam: Awake, alert and oriented x3 There is edema with associated erythema and warmth to dorsal aspect of left foot consistent with cellulitis Patient has stasis dermatitis and superficial venous ulcerations of the dorsal aspect of left foot There is maceration and fissures to skin to webspaces of toes #1 through #5 and lateral aspect of left foot which appears due to large amount of serous drainage from third spacing of fluid of foot There is mild warmth to foot No purulent drainage or noted deep ulcerations Edema to foot 3+/4 Toes are cool and dusky, cap refill 4-5 seconds Patient has limited sensation due to diabetic neuropathy Pulses DP/PT per signal Patient has gout to 1st mT noted per CT- patient denies any pain- it is hard to tell if there is any erythema or edema to MT #1 due to extensive edema of foot. Severe onychomycosis to nails #1 through #5 bilaterally with chinyere horn nails. Results - Labs Result Diagrams: 01/18/17 04:12 01/18/17 04:12 Labs: Abnormal lab results RDW 15.4 % (11.5-14.5) H 01/16/17 02:37 PT 29.7 Seconds (9.4-12.1) H 01/16/17 02:37 Sodium 134 mEq/L (136-145) L 01/16/17 02:37 BUN 30 mg/dL (8-26) H 01/16/17 02:37 Creatinine 1.56 mg/dL (0.72-1.25) H 01/16/17 02:37 Est GFR ( Amer) 55 (> 60) L 01/16/17 02:37 Est GFR (Non-Af Amer) 45 (> 60) L 01/16/17 02:37 Glucose 230 mg/dL (70-99) H 01/16/17 02:37 POC Glucose 217 (58-89) H 01/16/17 00:04 B-Natriuretic Peptide 1072 pg/mL (0-100) H 01/15/17 13:37 H & H 01/16/17 Range/Units 02:37 Hgb 13.2 (12.9-16.9) g/dL Hct 40.4 (37.5-50.1) % All other labs normal. Consult Discharge Plan - Plan Referrals: Lilo Beltran MD [Primary Care Provider] -
[2017-01-16] MEDS: Vancomycin 1,500 MG in D5% in Water 250 ML IVPB SCH (17:40)
[2017-01-16] MEDS ORDERED: Warfarin perPT PO PRN (18:00)
[2017-01-16] MEDS ORDERED: *HR* Warfarin 7.5 MG TABLET PO SCH ×2 (18:00→23:10)
[2017-01-16 18:40] LABS: Uric Acid 8.8 mg/dL (3.5-7.2)
[2017-01-16 19:24] LABS: Hemoglobin A1C 8.6 %
--- NOTE | 2017-01-16 19:36 | Event Note ---
Date of Encounter: 01/16/17 Time of Encounter: 15:00 I examined this patient and my medical decision-making was reviewed with the Resident Physician on 01/16/17. I agree with the documented findings, disposition and treatment plan as described except to the extent set forth below. Mr Lance is currently admitted for COPD exac, venous stasis dermatitis. He remains moderate to high risk due to potential for worsening respiratory status. Mr Lance is complaining of pain. No fever or chills. No GI issues. Exam Alert. Comfortable Heart distant Lungs diminished Edema present I/P 1. Chr resp failure with hypoxia 2. COPD exac 3. CKD 3 4. Chronic a fib 5. Diabetes Further diagnoses and plan as per progress note of today.
[2017-01-17] MEDS: Piperacillin/Tazobactam 3.375 GM in D5% in Water (Mini-Bag+) 100 ML IVPB SCH ×2 (00:25→08:33)
[2017-01-17 03:50] LABS: Basophils # 0.1 K/mcL (0.0-0.2); Basophils % 0.8 %; Eosinophils # 0.3 K/mcL (0.0-0.6); Eosinophils % 3.1 %; Hematocrit 39.8 % (37.5-50.1); Hemoglobin 13.2 g/dL (12.9-16.9); Immature Granulocytes % 2.4 % (0-4); Lymphocytes # 1.7 K/mcL (0.6-4.6); Lymphocytes % 17.1 %; Mean Corpuscular HGB Conc 33.2 g/dL (31.6-35.5); Mean Corpuscular Volume 93.4 fL (83.0-100.0); Mean Platelet Volume 10.8 fL (9.4-12.4); Monocytes # 1.3 K/mcL (0.0-1.3); Monocytes % 13.1 %; Neutrophils # 6.5 K/mcL (1.6-8.9); Platelet Count 291 K/mcL (140-400); Red Blood Count 4.26 M/mcL (4.19-5.50); Red Cell Distribution Width 15.3 % (11.5-14.5); Segmented Neutrophils % 63.5 %
[2017-01-17 03:52] LABS: INR 2.5; Prothrombin Time 26.9 Seconds (9.4-12.1)
[2017-01-17 04:04] LABS: Calcium 9.4 mg/dL (8.6-10.8); Potassium 3.4 mEq/L (3.5-4.5)
[2017-01-17] MEDS: *HR* HYDROcodone/Acet 10/325 mg TABLET PO PRN ×3 (04:30→22:49)
[2017-01-17] MEDS: Ipratropium/Albuterol Neb 3 ML IH SCH ×6 (04:38→23:32)
[2017-01-17] MEDS: metOLazone 5 MG TABLET PO SCH (08:21)
[2017-01-17] MEDS: Aspirin 81 MG TAB.CHEW PO SCH (08:21)
[2017-01-17] MEDS: *HR* Amiodarone 200 MG TABLET PO SCH (08:21)
[2017-01-17] MEDS: Metoprolol XL (24 HR) Succ 50 MG TAB.ER.24H PO SCH (08:21)
[2017-01-17] MEDS: Nystatin SUSP 5 ML UD.LIQ PO SCH ×4 (08:21→20:22)
[2017-01-17] MEDS: Furosemide 40 MG/4 ML VIAL IVP SCH ×3 (08:21→22:45)
[2017-01-17] MEDS: Cholecalciferol (D-3) 1,000 UNIT TABLET PO SCH (08:21)
[2017-01-17] MEDS: (Breo Ellipta 100-25 Mcg Inh) IH SCH (08:22)
[2017-01-17] MEDS: Insulin LISPRO 300 UNITS/3 ML VIAL SQ SCH ×4 (08:22→20:22)
--- NOTE | 2017-01-17 10:22 | Internal Med Progress Note ---
<Jason Eaton - Last Filed: 01/17/17 18:49> Date of Encounter: 01/17/17 - Assessment and plan (1) Acute and chronic respiratory failure with hypoxia Current Visit: No Status: Acute (2) Cellulitis Current Visit: Yes Status: Acute Qualifiers: Site of cellulitis: extremity Site of cellulitis of extremity: lower extremity Laterality: right Qualified Code(s): L03.115 - Cellulitis of right lower limb (3) COPD exacerbation Current Visit: No Status: Acute (4) Acute on chronic systolic (congestive) heart failure Current Visit: Yes Status: Acute (5) Chronic venous hypertension w/ulcer and inflammation involv both sides Current Visit: Yes Status: Chronic (6) Tobacco abuse Current Visit: Yes Status: Chronic (7) Obesity, Class III, BMI 40-49.9 (morbid obesity) Current Visit: Yes Status: Chronic - Constitutional Vitals: Temp Pulse Resp BP Pulse Ox 97.9 F 80 20 91/58 98 01/17/17 15:18 01/17/17 15:18 01/17/17 15:18 01/17/17 15:18 01/17/17 15:18 Internal Medicine: Result - Labs CBC & Chem 7: 01/17/17 02:43 01/17/17 02:43 Labs: Short CBC 01/17/17 Range/Units 02:43 WBC 10.1 (4.3-11.1) K/mcL Hgb 13.2 (12.9-16.9) g/dL Hct 39.8 (37.5-50.1) % Plt Count 291 (140-400) K/mcL Neutrophils # 6.5 (1.6-8.9) K/mcL BMP 01/17/17 02:43 Sodium 134 L Potassium 3.4 L Chloride 96 L Carbon Dioxide 28 BUN 31 H Creatinine 1.59 H Glucose 167 H Calcium 9.4 - ABG Interpretation ABG results: PT/INR, D-dimer PT 26.9 Seconds (9.4-12.1) H 01/17/17 02:43 - Impressions Impressions Chest X-Ray 01/17/17 10:31 IMPRESSION: No significant interval change in findings compatible with mild pulmonary interstitial edema. D/ / Samson Murphy MD / Samson Murphy MD Interpreting Provider: Samson Murphy MD Consult Discharge Plan - Plan Referrals: Lilo Beltran MD [Primary Care Provider] - - Attending Attestation I examined this patient and my medical decision-making was reviewed with the Resident Physician on 01/17/17. I agree with the documented findings, disposition and treatment plan as described except to the extent set forth below. Mr Lance is currently admitted for exac COPD and cellulitis. He remains moderate to high risk due to potential for worsening respiratory status. Mr Lance is feeling more dyspneic. He denies pain at this time. He feels his dyspnea worsens with abx. No fever or chills. No GI issues. Exam Alert. Mod distress Mucus membranes dry Heart distant Lungs with rales Abd soft Edema present I/P 1. Cellulitis 2. Chronic venous status 3. COPD exac Further diagnoses and plan as above. <Ada Grigsby - Last Filed: 01/17/17 22:31> Date of Encounter: 01/17/17 Time of Encounter: 08:30 - Assessment and plan (1) CHF (congestive heart failure) Current Visit: Yes Status: Acute Assessment and plan: -Shortness of breath not improved today, wheezing, tight breath sounds -repeat CXR 01/16 showed was unchanged from prior. -scheduled Duonebs q4h -continue metolazone and lasix, fluid restriction of 1500 mL, strict I/Os. -continue monitoring replace electrolytes as needed Qualifiers: Congestive heart failure type: systolic Congestive heart failure chronicity : chronic Qualified Code(s): I50.22 - Chronic systolic (congestive) heart failure (2) PVD (peripheral vascular disease) Current Visit: Yes Status: Acute Assessment and plan: -Preliminary KATIANA normal b/l -venous reflux evaluation pending -Possible cellulitis complicated by PVD. -IV vanc, zosyn -Lt LE wrapped with Kerlex -vascular, wound care, and podiatry on board - Continue compression wraps, plan per vascular and podiatry. Will need wound care upon discharge. - Continue Abx for possible celulitis. Appears to be improving. (3) COPD (chronic obstructive pulmonary disease) Current Visit: No Status: Chronic Assessment and plan: - Continue home meds Qualifiers: COPD type: unspecified COPD Qualified Code(s): J44.9 - Chronic obstructive pulmonary disease, unspecified (4) DM (diabetes mellitus) Current Visit: No Status: Chronic Assessment and plan: -has insulin pump, but we will use SSI for glycemic control while admitted -continue monitoring with accu-cheks Qualifiers: Diabetes mellitus type: type 2 Diabetes mellitus complication status: with unspecified complications Diabetes mellitus correction insulin use: with correction use Qualified Code(s): E11.8 - Type 2 diabetes mellitus with unspecified complications (5) CKD (chronic kidney disease) Current Visit: Yes Status: Chronic Assessment and plan: -Creatinine remains at baseline -avoid nephrotoxic drugs and renally dose drugs when possible -continue to monitor with morning labs Qualifiers: Chronic kidney disease stage: stage 3 (moderate) Qualified Code(s): N18.3 - Chronic kidney disease, stage 3 (moderate) (6) Great toe pain Current Visit: Yes Status: Acute Assessment and plan: -Likely secondary to gout attack - Podiatry following, appreciate recommendations - Uric acid level mildly elevated at 8.8. - Pain control. Colchicine contraindicated while taking amiodarone. Podiatry recommending monitor at this time due to minimal pain and not being able to take colchicine. Qualifiers: Laterality: left Qualified Code(s): M79.675 - Pain in left toe(s) (7) Atrial fibrillation Current Visit: No Status: Chronic Assessment and plan: -Therapeutic INR 2.5 -rate controlled with toprol XL and amiodarone, continue -Anti-coagulated on warfarin with pharmacy to dose Qualifiers: Atrial fibrillation type: chronic Qualified Code(s): I48.2 - Chronic atrial fibrillation (8) DVT prophylaxis Current Visit: Yes Status: Acute Assessment and plan: -continue anti-coagulation with warfarin, pharmacy to dose - Time Spent With Patient 25 - 35 minutes - Subjective Interval history: Pt seen and examined this morning at bedside, he is sitting in chair at bedside. Dyspnea is pt's main complaint today, he feels that we are giving him too many IV fluids and it's making it harder for him to breathe; I explained that the antibiotics we're giving him are important and they need to go through the IV, pt still says we're giving him too much fluid. Denies LE pain, fever, chills, chest pain, nausea, vomiting. - Constitutional Vitals: Temp Pulse Resp BP Pulse Ox 97.4 F L 80 21 99/57 100 01/17/17 08:04 01/17/17 08:04 01/17/17 08:04 01/17/17 08:04 01/17/17 08:04 Exam: Gen: Vitals noted. No acute distress. Non-toxic appearance. HEENT: EOMI, normocephalic, atraumatic Cardiac: RRR, no murmur, +S1/S2 Pulmonary: no conversational dyspnea, end expiratory wheezes b/l lower lung beltran, tight breath sounds, no rhonchi, SpO2 100% on 3L NC Abdomen: BS present Extremities: moves all extremities, Lt LE wrapped in kerlex Neuro: AAOx3, appropriately answers questions, no focal deficits Internal Medicine: Result - Labs CBC & Chem 7: 01/17/17 02:43 01/17/17 02:43 Labs: Short CBC 01/17/17 Range/Units 02:43 WBC 10.1 (4.3-11.1) K/mcL Hgb 13.2 (12.9-16.9) g/dL Hct 39.8 (37.5-50.1) % Plt Count 291 (140-400) K/mcL Neutrophils # 6.5 (1.6-8.9) K/mcL BMP 01/17/17 02:43 Sodium 134 L Potassium 3.4 L Chloride 96 L Carbon Dioxide 28 BUN 31 H Creatinine 1.59 H Glucose 167 H Calcium 9.4 - ABG Interpretation ABG results: PT/INR, D-dimer PT 26.9 Seconds (9.4-12.1) H 01/17/17 02:43
--- NOTE | 2017-01-17 14:26 | Vascular/Endovas Progress Note ---
Date of Encounter: 01/17/17 Time of Encounter: 14:20 - Assessment and plan (1) Chronic venous hypertension w/ulcer and inflammation involv both sides Current Visit: Yes Status: Chronic The patient has evidence of chronic venous hypertension with inflammation and ulceration The patient has bialteral lower extremity edema, stasis dermatitis and superficial ulceration. The patient has been experieincing significant serous drainage from his left foot ulcerations. Leg elevation and compression is should be continued. Agree with plan per Podiatry. His venous duplex reveals no obstruction. Reflux is noted noted in the superficial vessels. The study was limited by his ability to stand. Deep venous reflux is likley given his clinical picture. Continue with daily wound care. He will likely need to follow-up in the wound center after discharge. His ABIs are normal. He has no evidence of hemodynamically significant peripheral vascular disease. He may follow-up in vascular clinic as needed. (2) PVD (peripheral vascular disease) Current Visit: Yes Status: Acute (3) CAD (coronary artery disease) Current Visit: No Status: Chronic Qualifiers: Coronary Disease-Associated Artery/Lesion type: unspecified vessel or lesion type [place] vs. transplanted heart: [place] heart Associated angina: without angina Qualified Code(s): I25.10 - Atherosclerotic heart disease of [place] coronary artery without angina pectoris (4) DM (diabetes mellitus) Current Visit: No Status: Chronic Qualifiers: Diabetes mellitus type: type 2 Diabetes mellitus complication status: with unspecified complications Diabetes mellitus long term acute care registered nurse insulin use: with long term acute care registered nurse use Qualified Code(s): E11.8 - Type 2 diabetes mellitus with unspecified complications (5) COPD (chronic obstructive pulmonary disease) Current Visit: No Status: Chronic Qualifiers: COPD type: unspecified COPD Qualified Code(s): J44.9 - Chronic obstructive pulmonary disease, unspecified (6) Tobacco abuse Current Visit: Yes Status: Chronic - Subjective Interval history: Patient reports that he is feeling much better today. He is alert. He matt foot pain. He denies chest pain or shortness of breath. Vital Signs, Last 4 Hours Temp Pulse Resp BP Pulse Ox 01/17/17 11:40 97.6 F 80 20 99/58 100 01/17/17 11:15 21 100 - Physical Examination General: Present: Conversant, No Apparent Distress HEENT: Present: Pupils equal Cardiac: Present: No Murmur Lungs: Present: Normal Breath Sounds Neuro: Present: Alert and responsive, Motor nerves grossly intact, Sensory nerves grossly intact Vascular: Present: Normal capillary refill, Edema (2+ ankle and foot edema). Absent: Cyanosis Abdomen: Present: Soft, Non-tender Skin: Present: Wound/ulcer(s) (left foot wounds are currently bandaged with a compressive bandage, stasis dermattis is present around bandage) Results 01/17/17 02:43 01/17/17 02:43 Lab Results, Last 24 hours 01/17/17 01/17/17 01/17/17 02:43 02:43 02:43 WBC 10.1 Hgb 13.2 Hct 39.8 Plt Count 291 INR 2.5 Sodium 134 L Potassium 3.4 L Chloride 96 L Carbon Dioxide 28 BUN 31 H Creatinine 1.59 H Glucose 167 H Calcium 9.4 - Imaging / Other Tests Non Invasive Vascular Testing: report reviewed, image reviewed CT/CTA: report reviewed, image reviewed (Venous Duplex: Normal bilateral lower extremity deep and superfical venous exam. Limited reflux evaluation due to patients inability to stand. No superficial venous reflux identified. Ankle Brachial Index: The bilateral lower extremities are hemodynamically well maintained. The right ankle-brachial index is: 1.06. The left ankle-brachial index is: 1.19.) Consult Discharge Plan - Plan Referrals: Lilo Beltran MD [Primary Care Provider] -
[2017-01-17] MEDS: Cefepime HCl 2,000 MG in D5% in Water (Mini-Bag+) 100 ML IVPB SCH (16:42)
--- NOTE | 2017-01-17 17:08 | Podiatry Progress Note ---
Date of Encounter: 01/17/17 Time of Encounter: 12:00 - Assessment and Plan (1) Great toe pain Current Visit: Yes Status: Acute Uric acid 8.8, likely acute gout attack is present however due to patients lack of pain related to process and reaction between cordarone and colchicine we will refrain from administering any medication at this time. Monitor Qualifiers: Qualified Code(s): M79.675 - Pain in left toe(s) (2) Cellulitis Current Visit: Yes Status: Acute There is a decrease in erythema and edema of LLE as compared to previous exam- however remains present Continue current antibiotic therapy- Zosyn and vancomycin - monitor kidneys Wound cultures were ordered and obtained from drainage of LLE-GNR at this time Blood cultures have been obtained Continue to monitor VS and white count Qualifiers: Qualified Code(s): L03.115 - Cellulitis of right lower limb (3) PVD (peripheral vascular disease) Current Visit: Yes Status: Acute (4) Chronic venous hypertension w/ulcer and inflammation involv both sides Current Visit: Yes Status: Chronic Vascular on board Pulses noted to signal PT/DP bilaterally- however toes are noted to be dusky and cool, however likely related to severe edema, third spacing and weeping Vascular noted venous reflux and KATIANA appear normal- agree with compression and elevation There are weeping, macerated ulcerations noted to webspaces of toes #1 through # 5 left, these have improved with application of maxsorb and betadine. Please apply to entire plantar line of toes and along lateral aspect of left foot Please apply betadine, strips of maxsorb AG between toes and kerlex to LLE to absorb drainage and apply compression to decrease edema. Change BID or PRN- DO NOT ALLOW DRESSINGS TO BECOME SATURATED. Wrapped with coban today to provide added compression Kerlex to RLE BLE to be elevated at all times, do not allow to dangle Now that maceration and drainage has decreased slightly we will apply clotrimazole gel to interdigital webspaces of toes in attempt to dry out skin and treat any possible fungal infection CT negative for any fluid collection- shows erosive changes of 1st MTP joint- consistent with gout- will obtain uric acid to confirm-pronounced sub Q edema involving the foot and ankle Patient is not a candidate for MRI due to presence of pacer. 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 Patient resting comfortably on arrival. States he continues to be short of breath despite lasix administration. Patient states he has been trying to keep his foot up. Patient denies any pain to foot at this time. Patient has dressing intact. Objective - Vital Signs Vital Signs: Vital Signs Temp Pulse Resp BP Pulse Ox 01/17/17 15:18 97.9 F 80 20 91/58 98 01/17/17 11:40 97.6 F 80 20 99/58 100 01/17/17 11:15 21 100 01/17/17 08:04 97.4 F L 80 21 99/57 100 01/17/17 07:45 21 100 01/17/17 05:00 98.3 F 80 17 119/84 100 01/17/17 03:50 18 100 01/17/17 01:00 81 20 119/84 99 01/17/17 00:09 18 100 01/16/17 20:00 97.5 F L 97 19 120/75 93 01/16/17 19:45 100 Intake and Output 01/17/17 01/17/17 01/17/17 07:59 15:59 23:59 Intake Total 200 / 200 1080 / 1080 Balance 200 / 200 1080 / 1080 Intake: Oral 200 / 200 1080 / 1080 Other: Meal Lunch Percent of Meal Consumed 100% # Voids 2 Weight 135.2 kg Blood Glucose* 259 Patient Weight 01/17/17 23:59 Weight 135.2 kg - Exam Exam: awake, alert and oriented Edema and erythema of LLE decreased slightly, weeping and superficial ulcerations to dorsal aspect of foot remain. Maceration between toes and along lateral aspect of foot has improved Toes remain cool and dusky however again this is likely due to third spacing of fluid and edema Pulses DP/PT to doppler Edema 2+/4 No calf pain with manual compression - Lab Result Diagrams: 01/18/17 04:12 01/18/17 04:12 Labs: Abnormal lab results RDW 15.3 % (11.5-14.5) H 01/17/17 02:43 ESR 56 mm/hr (0-10) H 01/16/17 18:12 PT 26.9 Seconds (9.4-12.1) H 01/17/17 02:43 Sodium 134 mEq/L (136-145) L 01/17/17 02:43 Potassium 3.4 mEq/L (3.5-4.5) L 01/17/17 02:43 Chloride 96 mEq/L (98-109) L 01/17/17 02:43 BUN 31 mg/dL (8-26) H 01/17/17 02:43 Creatinine 1.59 mg/dL (0.72-1.25) H 01/17/17 02:43 Est GFR ( Amer) 54 (> 60) L 01/17/17 02:43 Est GFR (Non-Af Amer) 44 (> 60) L 01/17/17 02:43 Glucose 167 mg/dL (70-99) H 01/17/17 02:43 POC Glucose 291 (58-89) H 01/16/17 20:47 Hemoglobin A1c 8.6 % (-5.6) H 01/16/17 18:12 Uric Acid 8.8 mg/dL (3.5-7.2) H 01/16/17 18:12 C-Reactive Protein 29 mg/L (Less than 5) H 01/16/17 18:12 B-Natriuretic Peptide 1072 pg/mL (0-100) H 01/15/17 13:37 Microbiology, Last 48 Hours 01/15/17 Unknown Wound Culture - Preliminary Right Foot Gram Negative Gasper Consult Discharge Plan - Plan Referrals: Lilo Beltran MD [Primary Care Provider] -
[2017-01-17] MEDS: Vancomycin 1,500 MG in D5% in Water 250 ML IVPB SCH (17:56)
[2017-01-17] MEDS ORDERED: *HR* Warfarin 5 MG TABLET PO ONE (18:00)
[2017-01-17] MEDS ORDERED: Aminoglycoside Consult 1 EACH MC ONE (18:32)
[2017-01-17] MEDS: Clotrimazole 1% CRM 15 GM TUBE TP SCH (20:22)
[2017-01-18] MEDS: Cefepime HCl 2,000 MG in D5% in Water (Mini-Bag+) 100 ML IVPB SCH ×2 (03:00→16:41)
[2017-01-18] MEDS: Ipratropium/Albuterol Neb 3 ML IH SCH ×6 (04:11→23:17)
[2017-01-18 04:59] LABS: Hematocrit 39.9 % (37.5-50.1); Hemoglobin 13.2 g/dL (12.9-16.9); Mean Corpuscular HGB Conc 33.1 g/dL (31.6-35.5); Mean Corpuscular Hemoglobin 30.6 pg (28.0-33.3); Mean Corpuscular Volume 92.4 fL (83.0-100.0); Mean Platelet Volume 10.7 fL (9.4-12.4); Platelet Count 289 K/mcL (140-400); Red Blood Count 4.32 M/mcL (4.19-5.50)
[2017-01-18 05:02] LABS: Prothrombin Time 33.6 Seconds (9.4-12.1)
[2017-01-18] MEDS: Furosemide 40 MG/4 ML VIAL IVP SCH ×3 (05:02→21:11)
[2017-01-18 05:17] LABS: Calcium 9.3 mg/dL (8.6-10.8); Potassium 2.8 mEq/L (3.5-4.5)
[2017-01-18] MEDS: Metoprolol XL (24 HR) Succ 50 MG TAB.ER.24H PO SCH (08:59)
[2017-01-18] MEDS: *HR* Amiodarone 200 MG TABLET PO SCH (08:59)
[2017-01-18] MEDS: Aspirin 81 MG TAB.CHEW PO SCH (08:59)
[2017-01-18] MEDS: (Breo Ellipta 100-25 Mcg Inh) IH SCH (08:59)
[2017-01-18] MEDS: *HR* HYDROcodone/Acet 10/325 mg TABLET PO PRN ×3 (08:59→21:42)
[2017-01-18] MEDS: Cholecalciferol (D-3) 1,000 UNIT TABLET PO SCH (08:59)
[2017-01-18] MEDS: Insulin LISPRO 300 UNITS/3 ML VIAL SQ SCH ×3 (09:00→16:42)
[2017-01-18] MEDS: metOLazone 5 MG TABLET PO SCH (09:03)
[2017-01-18] MEDS: Nystatin SUSP 5 ML UD.LIQ PO SCH ×4 (09:04→21:39)
[2017-01-18] MEDS: Clotrimazole 1% CRM 15 GM TUBE TP SCH ×2 (09:04→21:43)
[2017-01-18 09:57] LABS: Magnesium 1.9 mg/dL (1.6-2.6)
--- NOTE | 2017-01-18 16:34 | Podiatry Progress Note ---
Date of Encounter: 01/18/17 Time of Encounter: 16:00 - Assessment and Plan (1) Great toe pain Current Visit: Yes Status: Acute Uric acid 8.8, likely acute gout attack is present however due to patients lack of pain related to process and reaction between cordarone and colchicine we will refrain from administering any medication at this time. Monitor Qualifiers: Qualified Code(s): M79.675 - Pain in left toe(s) (2) Cellulitis Current Visit: Yes Status: Acute There is a decrease in erythema and edema of LLE as compared to previous exam- however remains present Continue current antibiotic therapy- Zosyn and vancomycin - monitor kidneys Wound cultures were ordered and obtained from drainage of LLE-prelim continues to show multiple GNR Blood cultures have been obtained Continue to monitor VS and white count Qualifiers: Qualified Code(s): L03.115 - Cellulitis of right lower limb (3) PVD (peripheral vascular disease) Current Visit: Yes Status: Acute (4) Chronic venous hypertension w/ulcer and inflammation involv both sides Current Visit: Yes Status: Chronic Vascular on board Pulses noted to signal PT/DP bilaterally- however toes are noted to be dusky and cool, however likely related to severe edema, third spacing and weeping Vascular noted venous reflux and KATIANA appear normal- agree with compression and elevation There are weeping, macerated ulcerations noted to webspaces of toes #1 through # 5 left, these were improving with application of maxsorb and betadine. Dressings must be changed no less than every 12 hours- Please apply betadine to entire plantar aspect of foot and toes and along lateral aspect of left foot Please apply betadine, strips of maxsorb AG between toes and kerlex to LLE to absorb drainage and apply compression to decrease edema. Change BID or PRN- DO NOT ALLOW DRESSINGS TO BECOME SATURATED. Wrapped with coban today to provide added compression Kerlex to RLE BLE to be elevated at all times, do not allow to dangle Now that maceration and drainage has decreased slightly we will apply clotrimazole gel to interdigital webspaces of toes in attempt to dry out skin and treat any possible fungal infection CT negative for any fluid collection- shows erosive changes of 1st MTP joint- consistent with gout- will obtain uric acid to confirm-pronounced sub Q edema involving the foot and ankle Patient is not a candidate for MRI due to presence of pacer. 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 Patient resting comfortably on arrival. Patient sitting with legs down, states his knees hurt and he cannot elevate them and he cannot breathe to lay in bed. Emphasized need to elevate legs to decrease edema. Patient denies any fevers, chills, n/v or flu like symptoms. Patient dressing in place however noted to be saturated. States it has not been changed since last night at 2100 or 2200. Patient is ordered BID dressing changes or more frequently if saturation is noted. Objective - Vital Signs Vital Signs: Vital Signs Temp Pulse Resp BP Pulse Ox 01/18/17 16:00 98.1 F 80 15 109/67 97 01/18/17 11:45 15 98 01/18/17 08:54 15 98 01/18/17 07:16 98.0 F 80 15 99/58 98 01/18/17 04:00 97.9 F 80 16 89/69 98 01/17/17 23:33 17 98 01/17/17 20:53 98 01/17/17 20:45 98.1 F 80 17 105/63 98 01/17/17 20:03 15 98 Intake and Output 01/18/17 01/18/17 01/18/17 07:59 15:59 23:59 Intake Total 400 / 400 240 / 240 200 / 200 Output Total 400 / 400 750 / 750 550 / 550 Balance 0 / 0 -510 / -510 -350 / -350 Intake: Oral 400 / 400 240 / 240 200 / 200 Output: Urine 400 / 400 750 / 750 550 / 550 Other: Meal Lunch Percent of Meal Consumed 95% Blood Glucose* 208 220 344 - Exam Exam: Awake, alert and oriented Edema and erythema of foot has decreased in comparison to previous exams Due to saturation of dressings which were removed, there is a large amount of maceration along entire plantar aspect, lateral aspect of foot and to dorsal and plantar aspect of toes, there is sloughing of macerated skin noted. Foot is cool and damp. Pulses to signal Cap refill remains 4-5 seconds Sensation to moderate touch No purulent drainage, odor or warmth noted. no calf pain to manual compression - Lab Result Diagrams: 01/18/17 04:12 01/18/17 04:12 Labs: Abnormal lab results RDW 15.0 % (11.5-14.5) H 01/18/17 04:12 ESR 56 mm/hr (0-10) H 01/16/17 18:12 PT 33.6 Seconds (9.4-12.1) H 01/18/17 04:12 Sodium 131 mEq/L (136-145) L 01/18/17 04:12 Potassium 2.8 mEq/L (3.5-4.5) L 01/18/17 04:12 Chloride 90 mEq/L (98-109) L 01/18/17 04:12 BUN 27 mg/dL (8-26) H 01/18/17 04:12 Creatinine 1.49 mg/dL (0.72-1.25) H 01/18/17 04:12 Est GFR ( Amer) 58 (> 60) L 01/18/17 04:12 Est GFR (Non-Af Amer) 48 (> 60) L 01/18/17 04:12 Glucose 178 mg/dL (70-99) H 01/18/17 04:12 POC Glucose 388 (58-89) H 01/17/17 19:53 Hemoglobin A1c 8.6 % (-5.6) H 01/16/17 18:12 Uric Acid 8.8 mg/dL (3.5-7.2) H 01/16/17 18:12 C-Reactive Protein 29 mg/L (Less than 5) H 01/16/17 18:12 B-Natriuretic Peptide 1072 pg/mL (0-100) H 01/15/17 13:37 Microbiology, Last 48 Hours 01/15/17 Unknown Wound Culture - Preliminary Right Foot Gram Negative Gasper Gram Negative Gasper#2 Gram Negative Gasper#3 Consult Discharge Plan - Plan Referrals: Lilo Beltran MD [Primary Care Provider] -
--- NOTE | 2017-01-18 16:34 | Internal Med Progress Note ---
<Ada Grigsby - Last Filed: 01/18/17 17:25> Date of Encounter: 01/18/17 Time of Encounter: 08:45 - Assessment and plan (1) CHF (congestive heart failure) Current Visit: Yes Status: Acute Assessment and plan: -Shortness of breath much improved today -continue metolazone and lasix, hold for SBP <90 / DBP < 50 -Fluid restriction of 1500 mL and strict I/Os. -monitor and replace electrolytes as needed Qualifiers: Congestive heart failure type: systolic Congestive heart failure chronicity : chronic Qualified Code(s): I50.22 - Chronic systolic (congestive) heart failure (2) PVD (peripheral vascular disease) Current Visit: Yes Status: Acute Assessment and plan: -KATIANA's normal -Venous duplex: no obstruction, deep venous reflux likely -Continue elevation and compression. -Will need wound care upon discharge. Can f/u in vascular clinic PRN. (3) Cellulitis Current Visit: Yes Status: Acute Assessment and plan: -Rt LE cellulitis complicated by PVD -IV vancomycin and zosyn stopped -IV cefepime started, dose #1 -Lt LE wound culture showing GNR -Sensitivity pending -Improved erythema and edema, per podiatry -Dressing changes and wound care as per podiatry -vascular, wound care, and podiatry on board Qualifiers: Site of cellulitis: extremity Site of cellulitis of extremity: lower extremity Laterality: right Qualified Code(s): L03.115 - Cellulitis of right lower limb (4) COPD (chronic obstructive pulmonary disease) Current Visit: No Status: Chronic Assessment and plan: -Saturating well on 3L NC -Continue home meds Qualifiers: COPD type: unspecified COPD Qualified Code(s): J44.9 - Chronic obstructive pulmonary disease, unspecified (5) CKD (chronic kidney disease) Current Visit: Yes Status: Chronic Assessment and plan: -Creatinine remains at baseline -avoid nephrotoxic drugs -renally dose drugs when possible -continue to monitor with morning labs Qualifiers: Chronic kidney disease stage: stage 3 (moderate) Qualified Code(s): N18.3 - Chronic kidney disease, stage 3 (moderate) (6) DM (diabetes mellitus) Current Visit: No Status: Chronic Assessment and plan: -Glucose this visit has ranged from approx 170 to 250, adjustments for better control -13 units basal insulin started -Sliding scale insulin increased to medium-dose -Continue routine monitoring w/ accu-cheks Qualifiers: Diabetes mellitus type: type 2 Diabetes mellitus complication status: with unspecified complications Diabetes mellitus snf insulin use: with snf use Qualified Code(s): E11.8 - Type 2 diabetes mellitus with unspecified complications (7) Great toe pain Current Visit: Yes Status: Acute Assessment and plan: -No c/o pain, hold off on giving meds for pain - Podiatry following, appreciate recommendations Qualifiers: Laterality: left Qualified Code(s): M79.675 - Pain in left toe(s) (8) Atrial fibrillation Current Visit: No Status: Chronic Assessment and plan: -Therapeutic INR level -rate controlled with toprol XL and amiodarone, continue -Anti-coagulated on warfarin with pharmacy to dose Qualifiers: Atrial fibrillation type: chronic Qualified Code(s): I48.2 - Chronic atrial fibrillation (9) DVT prophylaxis Current Visit: Yes Status: Acute Assessment and plan: -continue anti-coagulation with warfarin, pharmacy to dose - Subjective Interval history: Patient seen and examined this morning at bedside, he is sitting in chair at bedside. Patient appears quite well and is very pleasant today; he says his breathing is significantly better than yesterday. Denies LE pain, fever, chills , chest pain, nausea, vomiting. Admits some continued cough with some sputum. Patient feels his LE edema has improved slightly. - Constitutional Vitals: Temp Pulse Resp BP Pulse Ox 98.0 F 80 15 99/58 98 01/18/17 07:16 01/18/17 07:16 01/18/17 11:45 01/18/17 07:16 01/18/17 11:45 General appearance: Present: A&O X 3, answers questions appropriately Exam: Gen: Vitals noted. No acute distress. HEENT: EOMI, normocephalic, atraumatic Cardiac: RRR, no murmur, +S1/S2 Pulmonary: no conversational dyspnea, normal respiratory effort, scattered and intermittent wheezes b/l lower lung beltran, improved air flow, SpO2 98% on 3L N[place] Extremities: moves all extremities, Lt LE wrapped in kerlex, Rt foot erythematous and nontender to palpation, +2 pitting edema of Rt foot and ankle Neuro: AAOx3, appropriately answers questions, no focal deficits Internal Medicine: Result - Labs CBC & Chem 7: 01/18/17 04:12 01/18/17 04:12 Labs: Short CBC 01/18/17 Range/Units 04:12 WBC 9.9 (4.3-11.1) K/mcL Hgb 13.2 (12.9-16.9) g/dL Hct 39.9 (37.5-50.1) % Plt Count 289 (140-400) K/mcL BMP 01/18/17 04:12 Sodium 131 L Potassium 2.8 L Chloride 90 L Carbon Dioxide 28 BUN 27 H Creatinine 1.49 H Glucose 178 H Calcium 9.3 - ABG Interpretation ABG results: PT/INR, D-dimer PT 33.6 Seconds (9.4-12.1) H 01/18/17 04:12 Consult Discharge Plan - Plan Referrals: Lilo Beltran MD [Primary Care Provider] - <Jason Eaton - Last Filed: 01/19/17 07:43> Date of Encounter: 01/18/17 - Assessment and plan (1) Acute and chronic respiratory failure with hypoxia Current Visit: No Status: Acute (2) Cellulitis Current Visit: Yes Status: Acute Qualifiers: Site of cellulitis: extremity Site of cellulitis of extremity: lower extremity Laterality: right Qualified Code(s): L03.115 - Cellulitis of right lower limb (3) COPD exacerbation Current Visit: No Status: Acute (4) Acute on chronic systolic (congestive) heart failure Current Visit: Yes Status: Acute (5) Chronic venous hypertension w/ulcer and inflammation involv both sides Current Visit: Yes Status: Chronic (6) Tobacco abuse Current Visit: Yes Status: Chronic (7) Obesity, Class III, BMI 40-49.9 (morbid obesity) Current Visit: Yes Status: Chronic - Constitutional Vitals: Temp Pulse Resp BP Pulse Ox 98.1 F 80 15 109/67 97 01/18/17 16:00 01/18/17 16:00 01/18/17 16:36 01/18/17 16:00 01/18/17 16:36 Internal Medicine: Result - Labs CBC & Chem 7: 01/18/17 04:12 01/19/17 03:09 Labs: Short CBC 01/18/17 Range/Units 04:12 WBC 9.9 (4.3-11.1) K/mcL Hgb 13.2 (12.9-16.9) g/dL Hct 39.9 (37.5-50.1) % Plt Count 289 (140-400) K/mcL BMP 01/18/17 04:12 Sodium 131 L Potassium 2.8 L Chloride 90 L Carbon Dioxide 28 BUN 27 H Creatinine 1.49 H Glucose 178 H Calcium 9.3 - ABG Interpretation ABG results: PT/INR, D-dimer PT 33.6 Seconds (9.4-12.1) H 01/18/17 04:12 - Attending Attestation I examined this patient and my medical decision-making was reviewed with the Resident Physician on 01/18/17. I agree with the documented findings, disposition and treatment plan as described except to the extent set forth below. Mr. Lance is currently admitted for COPD exac and foot infection. He remains moderate to high risk due to potential for worsening infectious status. Mr Lance is breathing somewhat better today. No new issues. No fever or chills. No GI issues. Exam Alert. Comfortable Mucus membranes dry Heart not tachy Lungs diminished Edema present I/P 1. COPD 2. Infected foot Further diagnoses and plan as above.
[2017-01-18] MEDS ORDERED: *HR* Warfarin 4 MG TABLET PO ONE (18:00)
[2017-01-18] MEDS: Budesonide/Formoterol 160/4.5 MDI IH SCH (19:31)
[2017-01-18] MEDS ORDERED: Insulin LISPRO 300 UNITS/3 ML VIAL SQ SCH (21:00)
[2017-01-18] MEDS ORDERED: Insulin DETEMIR 100 UNIT/ML X5UNITS SQ SCH (21:00)
[2017-01-19] MEDS: Cefepime HCl 2,000 MG in D5% in Water (Mini-Bag+) 100 ML IVPB SCH ×2 (03:37→17:01)
[2017-01-19] MEDS: Ipratropium/Albuterol Neb 3 ML IH SCH ×4 (04:03→15:24)
[2017-01-19 04:22] LABS: Calcium 9.4 mg/dL (8.6-10.8); Magnesium 2.1 mg/dL (1.6-2.6); Potassium 3.1 mEq/L (3.5-4.5)
[2017-01-19] MEDS: Furosemide 40 MG/4 ML VIAL IVP SCH ×2 (05:45→16:52)
[2017-01-19] MEDS: Budesonide/Formoterol 160/4.5 MDI IH SCH (07:43)
[2017-01-19] MEDS: metOLazone 5 MG TABLET PO SCH (08:50)
[2017-01-19] MEDS: Cholecalciferol (D-3) 1,000 UNIT TABLET PO SCH (08:50)
[2017-01-19] MEDS: Aspirin 81 MG TAB.CHEW PO SCH (08:50)
[2017-01-19] MEDS: Nystatin SUSP 5 ML UD.LIQ PO SCH ×3 (08:51→17:02)
[2017-01-19] MEDS: *HR* Amiodarone 200 MG TABLET PO SCH (08:51)
[2017-01-19] MEDS: *HR* HYDROcodone/Acet 10/325 mg TABLET PO PRN ×2 (08:53→17:05)
[2017-01-19] MEDS: Insulin LISPRO 300 UNITS/3 ML VIAL SQ SCH ×3 (08:55→17:02)
[2017-01-19] MEDS: Metoprolol XL (24 HR) Succ 50 MG TAB.ER.24H PO SCH (11:54)
[2017-01-19] MEDS: Clotrimazole 1% CRM 15 GM TUBE TP SCH (13:31)
--- NOTE | 2017-01-19 14:57 | Podiatry Progress Note ---
Date of Encounter: 01/19/17 Time of Encounter: 12:00 - Assessment and Plan (1) Great toe pain Current Visit: Yes Status: Acute Uric acid 8.8, likely acute gout attack is present however due to patients lack of pain related to process and reaction between cordarone and colchicine we will refrain from administering any medication at this time. Monitor Qualifiers: Laterality: left Qualified Code(s): M79.675 - Pain in left toe(s) (2) Cellulitis Current Visit: Yes Status: Acute There is a decrease in erythema and edema of LLE as compared to previous exam- however remains present wound cultures returned, antibiotic coverage per sensitivity report From our standpoint patient is ok to be discharged with antibiotic therapy and dressing care Patient will need BID dressing changes- betadine between toes, maxsorb AG strips between toes and dry sterile dressing- states she can perform dressnig changes if shown how Microbiology 01/15/17 Unknown Wound Culture - Final Right Foot Stenotrophomonas maltophilia Pseudomonas aeruginosa Klebsiella pneu.ssp pneumoniae Continue to monitor VS and white count Patient will need appointment in podiatry clinic next week for follow up regarding foot and wounds Will also need to follow up with PCP after discharge Qualifiers: Site of cellulitis: extremity Site of cellulitis of extremity: lower extremity Laterality: right Qualified Code(s): L03.115 - Cellulitis of right lower limb (3) PVD (peripheral vascular disease) Current Visit: Yes Status: Acute (4) Chronic venous hypertension w/ulcer and inflammation involv both sides Current Visit: Yes Status: Chronic Vascular on board Pulses noted to signal PT/DP bilaterally- however toes are noted to be dusky and cool, however likely related to severe edema, third spacing and weeping Vascular noted venous reflux and KATIANA appear normal- agree with compression and elevation There are weeping, macerated ulcerations noted to webspaces of toes #1 through # 5 left, these were improving with application of maxsorb and betadine. Dressings must be changed no less than every 12 hours- Please apply betadine to entire plantar aspect of foot and toes and along lateral aspect of left foot Please apply betadine, strips of maxsorb AG between toes and kerlex to LLE to absorb drainage and apply compression to decrease edema. Change BID or PRN- DO NOT ALLOW DRESSINGS TO BECOME SATURATED. Wrapped with coban today to provide added compression Kerlex to RLE BLE to be elevated at all times, do not allow to dangle . (5) Diabetes Current Visit: No Status: Acute Patient to have strict glucose control to assist in healing and prevent further complication Will order A1c to assess recent glucose control Qualifiers: Diabetes mellitus type: type 2 Diabetes mellitus complication status: without complication Diabetes mellitus senior living insulin use: with predatory animal exterminator use Qualified Code(s): E11.9 - Type 2 diabetes mellitus without complications ; Z79.4 - [facility] (current) use of insulin; Z79.4 - terminal worker (current) use of insulin; Z79.4 - terminal worker (current) use of insulin; Z79.4 - [facility] ( current) use of insulin (6) Onychomycosis Current Visit: Yes Status: Acute Profound onychomycosis Patient is a diabetic and on warfarin- Will need set up with appointment in podiatry clinic for DM nail care after discharge Subjective Interval history: We continue to follow related to edema and drainage of LLE. Patient resting comfortably on arrival. Patient sitting with legs down, states his knees hurt and he cannot elevate them and he cannot breathe to lay in bed. Emphasized need to elevate legs to decrease edema. Patient denies any fevers, chills, n/v or flu like symptoms. Dressing is clean dry and intact and was changed within last 30 mins prior to arrival. Objective - Vital Signs Vital Signs: Vital Signs Temp Pulse Resp BP Pulse Ox 01/19/17 11:45 97.9 F 79 16 104/66 98 01/19/17 11:24 16 100 01/19/17 07:38 97.8 F 80 16 93/51 100 01/19/17 03:40 97.9 F 80 18 89/53 98 01/18/17 23:19 98 01/18/17 23:18 20 98 01/18/17 20:00 98.0 F 80 19 95/55 100 01/18/17 19:32 17 100 01/18/17 16:36 15 97 01/18/17 16:00 98.1 F 80 15 109/67 97 Intake and Output 01/18/17 01/19/17 01/19/17 23:59 07:59 15:59 Intake Total 1260 / 1260 0 / 0 360 / 360 Output Total 1250 / 1250 900 / 900 Balance -900 / -900 360 / 360 Intake: IV Fluids 100 / 100 Maxipime 2,000 MG In Dextrose 5 100 / 100 % (Minibag+) 100 ML 100 ML @ 200 mls/hr IVPB Q12H [facility] Rx#: [id number] Oral 1160 / 1160 0 / 0 360 / 360 Output: Urine 1250 / 1250 900 / 900 Other: Meal Dinner Lunch Percent of Meal Consumed 100% 50% Blood Glucose* 300 347 336 - Exam Exam: Awake, alert and oriented Dressing clean dry and intact- will leave in place at this time Spoke with nurse regarding condition of foot. - Lab Result Diagrams: 01/18/17 04:12 01/19/17 03:09 Labs: Abnormal lab results RDW 15.0 % (11.5-14.5) H 01/18/17 04:12 ESR 56 mm/hr (0-10) H 01/16/17 18:12 PT 33.0 Seconds (9.4-12.1) H 01/19/17 03:09 Sodium 134 mEq/L (136-145) L 01/19/17 03:09 Potassium 3.1 mEq/L (3.5-4.5) L 01/19/17 03:09 Chloride 93 mEq/L (98-109) L 01/19/17 03:09 BUN 34 mg/dL (8-26) H 01/19/17 03:09 Creatinine 1.68 mg/dL (0.72-1.25) H 01/19/17 03:09 Est GFR ( Amer) 50 (> 60) L 01/19/17 03:09 Est GFR (Non-Af Amer) 42 (> 60) L 01/19/17 03:09 Glucose 222 mg/dL (70-99) H 01/19/17 03:09 POC Glucose 347 (58-89) H 01/19/17 07:41 Hemoglobin A1c 8.6 % (-5.6) H 01/16/17 18:12 Uric Acid 8.8 mg/dL (3.5-7.2) H 01/16/17 18:12 C-Reactive Protein 29 mg/L (Less than 5) H 01/16/17 18:12 B-Natriuretic Peptide 1072 pg/mL (0-100) H 01/15/17 13:37 Microbiology, Last 48 Hours 01/15/17 Unknown Wound Culture - Final Right Foot Stenotrophomonas maltophilia Pseudomonas aeruginosa Klebsiella pneu.ssp pneumoniae Consult Discharge Plan - Plan Referrals: Lilo Beltran MD [Primary Care Provider] -
[2017-01-19 15:52] VITALS: BP 104/63
--- NOTE | 2017-01-19 16:18 | Discharge Summary ---
<Jason Eaton - Last Filed: 01/19/17 19:01> Date of Encounter: 01/19/17 - Discharge Diagnosis (1) Acute and chronic respiratory failure with hypoxia Priority: Primary Status: Acute (2) Cellulitis Status: Acute Qualifiers: Site of cellulitis: extremity Site of cellulitis of extremity: lower extremity Laterality: right Qualified Code(s): L03.115 - Cellulitis of right lower limb (3) COPD exacerbation Priority: Primary Status: Acute (4) Acute on chronic systolic (congestive) heart failure Priority: Primary Status: Acute (5) Chronic venous hypertension w/ulcer and inflammation involv both sides Priority: Secondary Status: Chronic (6) Tobacco abuse Priority: Secondary Status: Chronic (7) Obesity, Class III, BMI 40-49.9 (morbid obesity) Priority: Secondary Status: Chronic - Discharge Medications Prescriptions: Levofloxacin [Levaquin] 750 mg PO DAILY #9 tablet Home Medications: Amiodarone [Cordarone] 200 mg PO DAILY 09/06/15 [History] Levothyroxine [Synthroid] 50 mcg PO HS 09/06/15 [History] Metoprolol Succinate 100 mg PO DAILY 09/06/15 [History] Nitroglycerin [Nitrostat] 0.4 mg SL Q5M PRN 09/06/15 [History] Oxygen 2 l NS AD 09/06/15 [History] Warfarin [Coumadin] 5 mg PO SUMOWEFRSA 09/06/15 [History] Warfarin [Coumadin] 7.5 mg PO TUTH 11/13/15 [History] Aspirin 81 mg PO DAILY 30 Days tab.chew 11/16/15 [Rx] Albuterol Sulfate [Albuterol Inhaler] 2 puff IH Q6HR PRN 03/14/16 [History] Torsemide 100 mg PO BID 03/14/16 [History] HYDROcodone/Acet 10/325 mg [[place] 10-325 mg] 1 tab PO BID PRN 12/19/16 [History] Tamsulosin [Flomax] 0.4 mg PO DAILY 12/19/16 [History] Cholecalciferol (D-3) [Vitamin D] 1,000 unit PO DAILY 12/20/16 [History] Lisinopril [Zestril] 5 mg PO DAILY tablet 12/21/16 [Rx] Acetaminophen [Tylenol] 650 mg PO Q6HR PRN tablet 12/28/16 [Rx] Fluticasone/Vilanterol [Breo Ellipta 100-25 Mcg INH] 1 each IH DAILY #1 blst.w.dev 12/28/16 [Rx] Nystatin [Nystatin Suspension] 100,000 units PO QID #120 ml 12/31/16 [Rx] Subcutaneous Insulin Pump [T:Slim] 1 each SQ AD PRN 01/15/17 [History] Atorvastatin [Lipitor] 40 mg PO HS 01/18/17 [History] Levofloxacin [Levaquin] 750 mg PO DAILY #9 tablet 01/19/17 [Rx] Allergies/Adverse Reactions: 3 Allergy/AdvReac Type Severity Reaction Status Date / Time metformin Allergy Hives Verified 12/19/16 10:37 pioglitazone [From Actos] Allergy Hives Verified 12/19/16 10:37 trazodone Allergy Hives Verified 12/19/16 10:37 Date of admission: 01/15/17 19:44 Primary care physician: Lilo Beltran, Consults: 01/16/17 13:26 Consult to Wound Care [CONS] Routine Reason for Consult: venous hypertension with inflammation and ulceration Call Completed: No 01/16/17 17:00 Consult to Podiatry [CONS] Routine Consulting Provider: [facility] Reason for Consult: Chronic venous hypertension w/ Lt LE ulcer; degenerative changes to Lt foot metatarsals Call Completed: Yes Consult to Vascular Surgery [CONS] Routine Consulting Provider: [facility] Reason for Consult: Chronic venous hypertension w/ Lt LE ulcer Call Completed: Yes - Patient Status Disposition: Home Health Service Condition: Fair - Discharge Instructions Instructions: Heart Failure (DC), Cellulitis (DC) Follow Up With: Lilo Beltran MD [Primary Care Provider] - Heidi Lancaster CNP [Partnered Physician] - (Call wound clinic Sunday to make appointment) Hospital course: Mr. Lance is a 61 year old male - Time Spent with Patient Total time spent providing and/or coordinating discharge services: 39min - Constitutional Vitals: Temp Pulse Resp BP Pulse Ox 97.7 F 85 16 104/63 98 01/19/17 15:51 01/19/17 15:51 01/19/17 15:51 01/19/17 15:51 01/19/17 15:51 - Attending Attestation I examined this patient and my medical decision-making was reviewed with the Resident Physician on 01/19/17. I agree with the documented findings, disposition and treatment plan as described except to the extent set forth below. Mr Lance has been admitted for acute exac COPD and cellulitis. He is doing better and is able to do wound care. Culture has 3 gram neg rods sensitive to Levaquin. He is afebrile with stable vitals. Exam Alert. Comfortable Heart reg and distant Lungs diminished. No wheeze Abd soft Dressing intact Plan D/C home today Levaquin Wound care Not on ACEI due to renal function, <Ada Grigsby - Last Filed: 01/19/17 23:18> Date of Encounter: 01/19/17 Time of Encounter: 11:00 - Discharge Diagnosis (1) CHF (congestive heart failure) Priority: Primary Status: Acute Qualifiers: Congestive heart failure type: systolic Congestive heart failure chronicity : chronic Qualified Code(s): I50.22 - Chronic systolic (congestive) heart failure (2) Cellulitis Priority: Secondary Status: Acute Qualifiers: Site of cellulitis: extremity Site of cellulitis of extremity: lower extremity Laterality: right Qualified Code(s): L03.115 - Cellulitis of right lower limb (3) PVD (peripheral vascular disease) Priority: Secondary Status: Acute (4) COPD (chronic obstructive pulmonary disease) Priority: Secondary Status: Chronic Qualifiers: COPD type: unspecified COPD Qualified Code(s): J44.9 - Chronic obstructive pulmonary disease, unspecified (5) CKD (chronic kidney disease) Priority: Secondary Status: Chronic Qualifiers: Chronic kidney disease stage: stage 3 (moderate) Qualified Code(s): N18.3 - Chronic kidney disease, stage 3 (moderate) (6) DM (diabetes mellitus) Priority: Secondary Status: Chronic Qualifiers: Diabetes mellitus type: type 2 Diabetes mellitus complication status: with unspecified complications Diabetes mellitus snf insulin use: with director of physical security use Qualified Code(s): E11.8 - Type 2 diabetes mellitus with unspecified complications (7) Great toe pain Priority: Secondary Status: Acute Qualifiers: Laterality: left Qualified Code(s): M79.675 - Pain in left toe(s) (8) Atrial fibrillation Priority: Secondary Status: Chronic Qualifiers: Atrial fibrillation type: chronic Qualified Code(s): I48.2 - Chronic atrial fibrillation (9) DVT prophylaxis Priority: Secondary Status: Acute Date of admission: 01/15/17 19:44 Primary care physician: Lilo Beltran, Consults: 01/16/17 13:26 Consult to Wound Care [CONS] Routine Reason for Consult: venous hypertension with inflammation and ulceration Call Completed: No 01/16/17 17:00 Consult to Podiatry [CONS] Routine Consulting Provider: [facility] Reason for Consult: Chronic venous hypertension w/ Lt LE ulcer; degenerative changes to Lt foot metatarsals Call Completed: Yes Consult to Vascular Surgery [CONS] Routine Consulting Provider: [facility] Reason for Consult: Chronic venous hypertension w/ Lt LE ulcer Call Completed: Yes Discharging clinician: Ada Grigsby Anticipated date of discharge: 01/19/17 - Patient Status Functional capacity at discharge: independent ambulation Overall status at discharge: patient is progressing back to baseline - Diet and Activity Activity: increase activity as tolerated, wear oxygen at all times, wear oxygen at night Diet: diabetic diet, low fat, low cholesterol, low salt diet Hospital course: Mr. Lance is a 61 year old male who presented to ED with c/o labile blood sugars , SOB, and LE edema. Cardiopulmonary workup was done with CXR showing evidence of CHF, supported by elevated BNP; troponins negative. Vitals wnl on [address] of LLE performed to rule out osteomyelitis, subcutaneous edema correlated clinically with cellulitis. While in ED, patient received Duonebs and was started on empiric IV vancomycin and zosyn. Patient was admitted for CHF and cellulitis. Throughout his hospital stay, patient improved gradually. He was continued on vanc and zosyn and was later deescalated to maxipime with improvement of symptoms. Foot wound was cultured and grew pseudomonas, Klebsiella, Stenotrophomonas, all of which were sensitive to levaquin. Wound care, podiatry and vascular surgery consulted during hospital stay for further management, agreed with cellulitis plan. He was diuresed with lasix and fluid restriction and on day of discharged was tolerating 2 L O2 via NC without complaints. Vital signs were wnl. Labs returned to baseline levels. Patient was medically stable for discharge. He will be sent home with levaquin for an additional 9 days for a total of 14 days. Podiatry will manage dressing changes as outpatient as well as diabetic nail care. He was instructed to follow up with PCP and wound care and to complete his course of antibiotics until completion. He was instructed to return to ED if symptoms return. - Time Spent with Patient Total time spent providing and/or coordinating discharge services: - Constitutional Vitals: Temp Pulse Resp BP Pulse Ox 97.7 F 85 16 104/63 98 01/19/17 15:51 01/19/17 15:51 01/19/17 15:51 01/19/17 15:51 01/19/17 15:51 General appearance: Present: A&O X 3, answers questions appropriately Exam: Gen: Vitals noted. No acute distress. HEENT: EOMI, normocephalic, atraumatic Cardiac: RRR, +S1/S2 Pulmonary: normal respiratory effort, CTA b/l, improved air flow, no wheezing Extremities: moves all extremities, Lt LE wrapped in kerlex, Rt foot erythematous and nontender to palpation, +2 pitting edema of Rt foot and ankle Neuro: AAOx3, appropriately answers questions
--- NOTE | 2017-01-19 17:31 | Physician Discharge Referral ---
Home Health/Hosp Referral Info Attending Provider: Jason Eaton DO Provider in Charge Post Discharge: PCP - Diagnosis (1) CHF (congestive heart failure) Priority: Primary Status: Acute (2) Cellulitis Priority: Secondary Status: Acute (3) PVD (peripheral vascular disease) Priority: Secondary Status: Acute (4) COPD (chronic obstructive pulmonary disease) Priority: Secondary Status: Chronic (5) CKD (chronic kidney disease) Priority: Secondary Status: Chronic (6) DM (diabetes mellitus) Priority: Secondary Status: Chronic (7) Great toe pain Priority: Secondary Status: Acute (8) Atrial fibrillation Priority: Secondary Status: Chronic (9) DVT prophylaxis Priority: Secondary Status: Acute - Respiratory Orders Oxygen / L per min (2L) Smoking Cessation: Smoking cessation has been advised. For more information, call the [employer] Quit Line at 0-688-HIALNOW. - Dressing/Wound Care Site: Left foot Type of Dressing/Treatments w/Frequency: Patient will need TID dressing changes- betadine between toes, maxsorb AG strips between toes and dry sterile dressing- states she can perform dressnig changes if shown how - Diet/Nutrition Diet/Nutrition Orders: Renal, Cardiac - Activity Activity Orders: Ambulate - Services Needed Following services are medically necessary services: Nursing, Home Health Aide, Physical Therapy, Occupational Therapy - Transfer Medications Prescriptions: Levofloxacin [Levaquin] 750 mg PO DAILY #9 tablet Home Medications: Amiodarone [Cordarone] 200 mg PO DAILY 09/06/15 [History] Levothyroxine [Synthroid] 50 mcg PO HS 09/06/15 [History] Metoprolol Succinate 100 mg PO DAILY 09/06/15 [History] Nitroglycerin [Nitrostat] 0.4 mg SL Q5M PRN 09/06/15 [History] Oxygen 2 l NS AD 09/06/15 [History] Warfarin [Coumadin] 5 mg PO SUMOWEFRSA 09/06/15 [History] Warfarin [Coumadin] 7.5 mg PO TUTH 11/13/15 [History] Aspirin 81 mg PO DAILY 30 Days tab.chew 11/16/15 [Rx] Albuterol Sulfate [Albuterol Inhaler] 2 puff IH Q6HR PRN 03/14/16 [History] Torsemide 100 mg PO BID 03/14/16 [History] HYDROcodone/Acet 10/325 mg [[place] 10-325 mg] 1 tab PO BID PRN 12/19/16 [History] Tamsulosin [Flomax] 0.4 mg PO DAILY 12/19/16 [History] Cholecalciferol (D-3) [Vitamin D] 1,000 unit PO DAILY 12/20/16 [History] Lisinopril [Zestril] 5 mg PO DAILY tablet 12/21/16 [Rx] Acetaminophen [Tylenol] 650 mg PO Q6HR PRN tablet 12/28/16 [Rx] Fluticasone/Vilanterol [Breo Ellipta 100-25 Mcg INH] 1 each IH DAILY #1 blst.w.dev 12/28/16 [Rx] Nystatin [Nystatin Suspension] 100,000 units PO QID #120 ml 12/31/16 [Rx] Subcutaneous Insulin Pump [T:Slim] 1 each SQ AD PRN 01/15/17 [History] Atorvastatin [Lipitor] 40 mg PO HS 01/18/17 [History] Levofloxacin [Levaquin] 750 mg PO DAILY #9 tablet 01/19/17 [Rx] Allergies/Adverse Reactions: 3 Allergy/AdvReac Type Severity Reaction Status Date / Time metformin Allergy Hives Verified 12/19/16 10:37 pioglitazone [From Actos] Allergy Hives Verified 12/19/16 10:37 trazodone Allergy Hives Verified 12/19/16 10:37 Certification: Further, I certify that my clinical findings support that this patient is homebound (i.e. absences from home require considerable and taxing effort and are for medical reasons or tenriism services or infrequently or short duration when for other reasons) because: Homebound Reason: Patient requires assistance of a person or device to safely leave home, Leaving home requires considerable and taxing effort due to condition, Severity of cardiac or pulmonary status limits activity tolerance Attestation: My signature below is to certify that this patient is under my care and that I, or nurse practitioner, or a physician's temporary administrative assistant working with me, has a face-to -face encounter with this patient.
[2017-01-19] MEDS ORDERED: *HR* Warfarin 4 MG TABLET PO ONE (18:00)
== END 2017-01-19 18:33 | disposition home health service (06) | DRG 291 ==
LOC: EMEROO 12:26 → 2NENU 12:26 → SUATTDRO 19:44
PROVIDERS: ADMIT Internal Medicine; ATTEND Internal Medicine

== ENCOUNTER 2017-02-04 03:06 | Observation (INO) ==
--- NOTE | 2017-02-04 03:50 | Emergency Department Note ---
Disposition Clinical Impression: Elevated troponin CHF exacerbation Qualifiers: Congestive heart failure type: systolic Qualified Code(s): I50.23 - Acute on chronic systolic (congestive) heart failure CKD (chronic kidney disease) Qualifiers: Chronic kidney disease stage: unspecified stage Qualified Code(s): N18.9 - Chronic kidney disease, unspecified Disposition: Admitted As Inpatient Condition: Good Time of Disposition: 05:29 SOB HPI - General Chief Complaint: ED Shortness of Breath/Dyspnea Stated Complaint: [place] copd/chf Time Seen by Provider: 02/04/17 03:07 Source: patient Mode of arrival: private vehicle Limitations: no limitations Nursing Notes Reviewed: Yes Vital Signs Reviewed: Yes - History of Present Illness 61-year-old male history of CHF, COPD, hypertension, CAD with 2 bypass surgeries and several stents presents to the ER due to shortness of breath. Patient states he felt short of breath for 2 days. States he has had a cough with white productive sputum. Denies fevers or chest pain at home. States he was admitted here recently for lower extremities swelling. He takes torsemide 200 mg daily. Reports a prior history of several cardiac stents as well as bypass twice. Uses oxygen at home as needed. No other complaints. Pt Subjective Complaint: shortness of breath, cough Onset (ago): day(s) Context: recent illness Severity: moderate Consistency/Duration: intermittent Improves with: nothing Worsens with: nothing Known history of: COPD, congestive heart failure Associated symptoms: Reports: cough, sputum production. Denies: chest pain, fever Treatment prior to arrival: oxygen Cough present: Yes Cough Description: Involuntary Cough Frequency: Intermittent Sputum production: Yes Sputum Amount: Small Sputum Color: White - Related Data Home oxygen amount: other (PRN) Home Medications Medication Instructions Recorded Confirmed Amiodarone [Cordarone] 200 mg PO DAILY 09/06/15 01/15/17 Levothyroxine [Synthroid] 50 mcg PO HS 09/06/15 01/15/17 Metoprolol Succinate 100 mg PO DAILY 09/06/15 01/15/17 Nitroglycerin [Nitrostat] 0.4 mg SL Q5M PRN 09/06/15 01/15/17 Oxygen 2 l NS AD 09/06/15 01/15/17 Warfarin [Coumadin] 5 mg PO SUMOWEFRSA 09/06/15 01/15/17 Warfarin [Coumadin] 7.5 mg PO TUTH 11/13/15 01/15/17 Albuterol Sulfate [Albuterol 2 puff IH Q6HR PRN 03/14/16 01/15/17 Inhaler] Torsemide 100 mg PO BID 03/14/16 01/15/17 HYDROcodone/Acet 10/325 mg [[place] 1 tab PO BID PRN 12/19/16 01/15/17 10-325 mg] Tamsulosin [Flomax] 0.4 mg PO DAILY 12/19/16 01/15/17 Cholecalciferol (D-3) [Vitamin D] 1,000 unit PO DAILY 12/20/16 01/15/17 Subcutaneous Insulin Pump [T:Slim] 1 each SQ AD PRN 01/15/17 01/15/17 Atorvastatin [Lipitor] 40 mg PO HS 01/18/17 01/18/17 Previous Rx's Medication Instructions Recorded Aspirin 81 mg PO DAILY 30 Days tab.chew 11/16/15 Lisinopril [Zestril] 5 mg PO DAILY tablet 12/21/16 Acetaminophen [Tylenol] 650 mg PO Q6HR PRN tablet 12/28/16 Fluticasone/Vilanterol [Breo 1 each IH DAILY #1 blst.w.dev 12/28/16 Ellipta 100-25 Mcg INH] Nystatin [Nystatin Suspension] 100,000 units PO QID #120 ml 12/31/16 Levofloxacin [Levaquin] 750 mg PO DAILY #9 tablet 01/19/17 Allergies Allergy/AdvReac Type Severity Reaction Status Date / Time metformin Allergy Hives Verified 12/19/16 10:37 pioglitazone [From Actos] Allergy Hives Verified 12/19/16 10:37 trazodone Allergy Hives Verified 12/19/16 10:37 All systems ED: reviewed and negative except as stated. Constitutional: Denies: fever Cardiovascular: Denies: chest pain Respiratory: Reports: cough, dyspnea, sputum production Gastrointestinal: Denies: abdominal pain, nausea, vomiting Past Medical History - Past Medical History Attestation: Yes The following information was validated with the patient. Source: patient Medical history: Reports: atrial fibrillation, cardiomyopathy, CHF, COPD, coronary artery disease, diabetes, hyperlipidemia, hypertension Surgical history: Reports: angioplasty/stent, coronary bypass (CABG), pacemaker/ AICD Psychiatric history: Reports: no psych history - Social History Smoking Status: Current every day smoker Smokeless Tobacco Status: No Alcohol use: Reports: none Drug use: Reports: none Physical Exam - General Limitations: no limitations General appearance: alert, in no apparent distress - Head Head exam: atraumatic - Eye Eye exam: Present: normal appearance - ENT ENT exam: normal exam - Neck Neck exam: Present: normal inspection - Chest Chest inspection: Present: normal inspection, symmetric chest wall rise - Respiratory Respiratory exam: Present: other (Diminished breath sounds bilaterally.) - Cardiovascular Cardiovascular exam: Present: regular rate, normal rhythm, normal heart sounds - Abdominal Exam Abdominal exam: Present: soft, Non-Tender. Absent: tenderness, distention, rigidity - Extremities Exam Extremities exam: Present: normal inspection, full ROM - Expanded Upper Extremity Exam Shoulder exam: Present: normal inspection, full ROM Arm exam: Present: normal inspection, full ROM Elbow exam: Present: normal inspection, full ROM Forearm/Wrist exam: Present: normal inspection, full ROM Hand exam: Present: normal inspection, full ROM - Expanded Lower Extremity Exam Hip/Pelvis exam: Present: normal inspection, full ROM Upper leg exam: Present: normal inspection, full ROM Knee exam: Present: normal inspection, full ROM Lower leg exam: Present: normal inspection, full ROM Ankle exam: Present: normal inspection, full ROM, swelling (There is 3+ pitting edema to the lower extremities) Foot/toe exam: Present: normal inspection, full ROM Neurovascular/Tendon exam: Absent: motor deficit, sensory deficit - Neurological Exam Neurological exam: Present: alert - Psychiatric Psychiatric exam: Present: normal affect - Skin Skin exam: Present: warm, dry, intact Course Course Narrative: Patient seen and examined. We will obtain an EKG, chest x-ray as well as labs including troponin and BNP. - Reevaluation(s) Reevaluation #1: Discussed results of imaging and lab work with the patient. He is agreeable to being admitted. Patient given 40 mg of IV Lasix. Vital Signs Temperature 97.6 F 02/04/17 03:08 Pulse Rate 88 02/04/17 03:08 Respiratory Rate 23 02/04/17 03:08 Blood Pressure 129/83 02/04/17 03:08 O2 Sat by Pulse Oximetry 95 02/04/17 03:08 Temperature 97.6 F 02/04/17 03:08 Pulse Rate 80 02/04/17 04:26 Respiratory Rate 18 02/04/17 04:26 Blood Pressure 110/83 02/04/17 04:26 O2 Sat by Pulse Oximetry 99 02/04/17 04:26 Oxygen Delivery Oxygen Delivery Nasal Cannula Shortness of Breath/Dyspnea - [facility] Narrative Medical decision making narrative: 61-year-old male history of COPD, CHF, CAD presents to the ER due to 2 days of shortness of breath and cough. EKG shows a paced rhythm unchanged from previous. X-ray with pulmonary vascular congestion. He has a BNP of 1400 with a troponin 0.05 currently chest pain-free in the setting of chronic kidney disease. Patient given 40 mg of IV Lasix. Admitted to the hospitalist service for CHF exacerbation. - Lab Data Lab results reviewed: Yes I reviewed the patient's lab results. Result diagrams: 02/04/17 03:51 02/04/17 03:51 Lab Results 02/04/17 02/04/17 02/04/17 Range/Units 03:51 03:51 03:51 WBC 16.0 H (4.3-11.1) K/mcL RBC 4.21 (4.19-5.50) M/mcL Hgb 12.9 (12.9-16.9) g/dL Hct 39.9 (37.5-50.1) % MCV 94.8 (83.0-100.0) fL MCH 30.6 (28.0-33.3) pg MCHC 32.3 (31.6-35.5) g/dL RDW 16.1 H (11.5-14.5) % Plt Count 309 (140-400) K/mcL MPV 10.7 (9.4-12.4) fL Immature Gran % 1.0 (0-4) % Seg Neutrophils % 81.0 % Lymphocytes % 9.2 % Monocytes % 7.6 % Eosinophils % 0.8 % Basophils % 0.4 % Neutrophils # 13.0 H (1.6-8.9) K/mcL Lymphocytes # 1.5 (0.6-4.6) K/mcL Monocytes # 1.2 (0.0-1.3) K/mcL Eosinophils # 0.1 (0.0-0.6) K/mcL Basophils # 0.1 (0.0-0.2) K/mcL Nucleated RBCs/100 WBC 0.1 H (0) /100 WBC PT (9.4-12.1) Seconds INR Sodium 139 (136-145) mEq/L Potassium 3.3 L (3.5-4.5) mEq/L Chloride 96 L (98-109) mEq/L Carbon Dioxide 28 (19-29) mEq/L BUN 39 H (8-26) mg/dL Creatinine 2.01 H (0.72-1.25) mg/dL Est GFR ( Amer) 41 L (> 60) Est GFR (Non-Af Amer) 34 L (> 60) BUN/Creatinine Ratio 19 (6-26) Glucose 176 H (70-99) mg/dL Calculated Osmolality 302 H (280-300) Calcium 9.7 (8.6-10.8) mg/dL Troponin I 0.05 H* (0-0.03) ng/mL B-Natriuretic Peptide (0-100) pg/mL 02/04/17 02/04/17 Range/Units 03:51 03:51 WBC (4.3-11.1) K/mcL RBC (4.19-5.50) M/mcL Hgb (12.9-16.9) g/dL Hct (37.5-50.1) % MCV (83.0-100.0) fL MCH (28.0-33.3) pg MCHC (31.6-35.5) g/dL RDW (11.5-14.5) % Plt Count (140-400) K/mcL MPV (9.4-12.4) fL Immature Gran % (0-4) % Seg Neutrophils % % Lymphocytes % % Monocytes % % Eosinophils % % Basophils % % Neutrophils # (1.6-8.9) K/mcL Lymphocytes # (0.6-4.6) K/mcL Monocytes # (0.0-1.3) K/mcL Eosinophils # (0.0-0.6) K/mcL Basophils # (0.0-0.2) K/mcL Nucleated RBCs/100 WBC (0) /100 WBC PT 21.4 H (9.4-12.1) Seconds INR 2.0 Sodium (136-145) mEq/L Potassium (3.5-4.5) mEq/L Chloride (98-109) mEq/L Carbon Dioxide (19-29) mEq/L BUN (8-26) mg/dL Creatinine (0.72-1.25) mg/dL Est GFR ( Amer) (> 60) Est GFR (Non-Af Amer) (> 60) BUN/Creatinine Ratio (6-26) Glucose (70-99) mg/dL Calculated Osmolality (280-300) Calcium (8.6-10.8) mg/dL Troponin I (0-0.03) ng/mL B-Natriuretic Peptide 1471 H (0-100) pg/mL - Radiology Data Radiology results reviewed: Yes I reviewed the patient's radiology results. Chest X-Ray 02/04/17 03:11 IMPRESSION: Pulmonary vascular congestion. D/ / Maureen Pringle MD / Maureen Pringle MD Interpreting Provider: Maureen Pringle MD - EKG Data EKG attestation: Yes I reviewed and interpreted this EKG. EKG results narrative: EKG demonstrates a ventricularly paced rhythm with a rate of 80 bpm. Right axis deviation. Prolonged QRS duration of 2:15. QTC 540. Nonspecific ST-T wave changes secondary to paced rhythm. No gross ST elevations. [address] depression in lead V2. No significant changes from previous EKG dated 01/15/17. S.B.A.R. - S.B.A.R. Situation: Demographics, MOA Background: Presenting Complaint, Relevant PMH, Meds, & Allergies Assessment: Vital Signs, Course and respsone to treatment, Exam Concerns, Patient/Family Expectation, Pertinant Lab Results Recommendation: Barrier(s) to disposition, Recommendation based on pending studies, treatments, or consults S.B.A.R. Report Given to: Dr. Ortega Attestation Statement - Attestation Attestation: I, Lopez Aguilar DO, examined this patient [id number] and my medical decision-making was reviewed with Dr. Balaji Dhillon, Resident Physician. I agree with the documented findings, disposition and treatment plan as described except to the extent set forth below. Please see my progress notes for details. 61-year-old male presents to emergency room with increased work of breathing shortness of breath and fluid overload. He has long-standing history of poor cardiac function as well as peripheral vascular disease. He has chronic fluid buildup in his lower extremities but does not have the ability to clear the fluid on his own. He is currently on 200 mg of furosemide daily. Denies any fevers or chills nausea vomiting or diarrhea. Denies headache vision changes chest pain or shortness of breath. Vital signs are reviewed and are otherwise stable. Patient is resting in the bed at this time but he is sitting upright with oxygen applied. Patient is concerning for fluid overload secondary to congestive heart failure and chronic heart condition. He is denying chest pain at this point. Patient has significant orthopnea. Patient will have cardiac evaluation completed along with starting diuresis by IV fluids. He does not really need current respiratory intervention at this point. His lungs are diminished bilaterally. He has significant increased work of breathing with accessory muscle. He is not At this time. Pulse ox is normal on his home oxygen. We will continue monitoring his treatment course is completed. He does have pitting edema up into the mid thigh. Patient is stable but will most likely need admission for definitive management. See detailed documentation of physical exam, medical intervention, medical decision-making and disposition and the resident physician's note [id number] Patient has elevated BNP consistent with fluid overload. Lungs are otherwise unremarkable. Patient is sitting upright in the bed secondary to positional orthopnea. Patient will be admitted for further evaluation clinical treatment. Single dose of IV Lasix given in the emergency room.
[2017-02-04 04:04] LABS: Basophils # 0.1 K/mcL (0.0-0.2); Basophils % 0.4 %; Eosinophils # 0.1 K/mcL (0.0-0.6); Eosinophils % 0.8 %; Hematocrit 39.9 % (37.5-50.1); Hemoglobin 12.9 g/dL (12.9-16.9); Lymphocytes # 1.5 K/mcL (0.6-4.6); Lymphocytes % 9.2 %; Mean Corpuscular HGB Conc 32.3 g/dL (31.6-35.5); Mean Corpuscular Hemoglobin 30.6 pg (28.0-33.3); Mean Corpuscular Volume 94.8 fL (83.0-100.0); Mean Platelet Volume 10.7 fL (9.4-12.4); Monocytes # 1.2 K/mcL (0.0-1.3); Monocytes % 7.6 %; Nucleated Red Blood Cells 0.1 /100 WBC (0); Platelet Count 309 K/mcL (140-400); Red Blood Count 4.21 M/mcL (4.19-5.50); Red Cell Distribution Width 16.1 % (11.5-14.5)
[2017-02-04 04:07] LABS: Prothrombin Time 21.4 Seconds (9.4-12.1)
[2017-02-04 04:19] LABS: Calcium 9.7 mg/dL (8.6-10.8); Potassium 3.3 mEq/L (3.5-4.5)
[2017-02-04] MEDS ORDERED: Furosemide 40 MG/4 ML VIAL IVP ONE (04:34)
[2017-02-04] MEDS ORDERED: Ipratropium/Albuterol Neb 3 ML IH PRN (05:37)
[2017-02-04] MEDS ORDERED: Naloxone 0.4 MG/ML INJ IVP PRN (05:39)
[2017-02-04] MEDS ORDERED: Ondansetron 4 MG/2 ML VIAL IVP PRN (05:39)
[2017-02-04] MEDS ORDERED: Acetaminophen 325 MG TABLET PO PRN (05:39)
--- NOTE | 2017-02-04 05:43 | Internal Med History&Physical ---
Date of Encounter: 02/04/17 Time of Encounter: 05:41 Assessment and Plan (1) Acute on chronic systolic (congestive) heart failure Current visit: No Status: Acute Acute on chronic respiratory failure secondary to acute systolic CHF exacerbation with severe bilateral lower extremity edema Strict I's and O's and daily weight Fluid restriction Start Lasix IV Omeprazole for GI prophylaxis and Coumadin for DVT prophylaxis. The patient will be admitted for observation. Full code. Time spent on this admission 40 minutes. High risk due to history of respiratory failure (2) Chronic kidney disease Current visit: Yes Status: Acute Qualifiers: Chronic kidney disease stage: stage 3 (moderate) Qualified Code(s): N18.3 - Chronic kidney disease, stage 3 (moderate) (3) Elevated troponin Current visit: No Status: Resolved Chronically elevated troponins History of CAD with CABG 2 and stents Continue aspirin (4) COPD (chronic obstructive pulmonary disease) Current visit: No Status: Chronic Qualifiers: COPD type: unspecified COPD Qualified Code(s): J44.9 - Chronic obstructive pulmonary disease, unspecified (5) Atrial fibrillation Current visit: No Status: Chronic Continue amiodarone and Coumadin Qualifiers: Atrial fibrillation type: chronic Qualified Code(s): I48.2 - Chronic atrial fibrillation (6) Hypothyroidism Current visit: No Status: Chronic Continue levothyroxine Qualifiers: Hypothyroidism type: unspecified Qualified Code(s): E03.9 - Hypothyroidism , unspecified (7) CAD (coronary artery disease) Current visit: No Status: Chronic Continue metoprolol Qualifiers: Coronary Disease-Associated Artery/Lesion type: unspecified vessel or lesion type [place] vs. transplanted heart: [place] heart Associated angina: without angina Qualified Code(s): I25.10 - Atherosclerotic heart disease of [place] coronary artery without angina pectoris (8) Tobacco abuse Current visit: No Status: Chronic Smoking cessation counseling, nicotine patch Internal Medicine - H&P: HPI Chief complaint: Shortness of breath Admitted From: Emergency Dept History of present illness: Mr. Lance is a 61 year old male with a past medical history of systolic CHF, COPD oxygen dependent using 2 L at home has an ejection fraction of 25% with an AICD, tobacco use, recently discharged from the hospital on 01/19/2017 where he was treated for cellulitis and COPD exacerbation. Patient says that he has been more short of breath for the past 2 days bringing up some phlegm/whitish. Complaining of worsening leg swelling. White blood cell count to 16 INR is 2 glucose is 176, he is diabetic but uses an insulin pump. Troponin 0.05 but he is not complaining of any chest pain although he is complaining of severe orthopnea. Chest x-ray shows pulmonary vascular congestion BNP is 1471 his creatinine has increased up to 2 from a baseline of 1.68 potassium is 3.3. He takes torsemide 100 mg twice a day. Was given Lasix a day ER and is feeling slightly better. Past Med Surg Social Fam HX - Past Medical History Medical history: atrial fibrillation (On Coumadin), cardiomyopathy, CHF ( Ejection fraction of 25%/systolic), COPD (Oxygen dependent using 2 L at home), coronary artery disease, diabetes (Uses an insulin pump), hyperlipidemia, hypertension, other (Chronic kidney disease stage III, chronically elevated troponins, hypothyroidism, BPH, tobacco use, left foot infection growing Klebsiella pseudomonas and stenotrophomonas pansensitive) Psychiatric history: no psych history - Past Surgical History Surgical History: angioplasty/stent, coronary bypass (CABG), pacemaker/AICD - Social History Smoking Status: Current every day smoker Packs per day: 10 cigarettes a day Smokeless Tobacco Status: No Alcohol use: none Drug use: none - Family History Mother Living Status: Father Living Status: Hx Family Cardiac Disorders: Yes (CHF, multiple heart attacks) - Additional Family History Additional family history: Father with a myocardial infarction at the age of 76 and mother with a myocardial infarction at the age of 87 Internal Medicine - H&P: Meds Amiodarone [Cordarone] 200 mg PO DAILY 09/06/15 [History] Levothyroxine [Synthroid] 50 mcg PO HS 09/06/15 [History] Metoprolol Succinate 100 mg PO DAILY 09/06/15 [History] Nitroglycerin [Nitrostat] 0.4 mg SL Q5M PRN 09/06/15 [History] Oxygen 2 l NS AD 09/06/15 [History] Warfarin [Coumadin] 5 mg PO SUMOWEFRSA 09/06/15 [History] Warfarin [Coumadin] 7.5 mg PO TUTH 11/13/15 [History] Aspirin 81 mg PO DAILY 30 Days tab.chew 11/16/15 [Rx] Albuterol Sulfate [Albuterol Inhaler] 2 puff IH Q6HR PRN 03/14/16 [History] Torsemide 100 mg PO BID 03/14/16 [History] HYDROcodone/Acet 10/325 mg [[place] 10-325 mg] 1 tab PO BID PRN 12/19/16 [History] Tamsulosin [Flomax] 0.4 mg PO DAILY 12/19/16 [History] Cholecalciferol (D-3) [Vitamin D] 1,000 unit PO DAILY 12/20/16 [History] Lisinopril [Zestril] 5 mg PO DAILY tablet 12/21/16 [Rx] Acetaminophen [Tylenol] 650 mg PO Q6HR PRN tablet 12/28/16 [Rx] Fluticasone/Vilanterol [Breo Ellipta 100-25 Mcg INH] 1 each IH DAILY #1 blst.w.dev 12/28/16 [Rx] Nystatin [Nystatin Suspension] 100,000 units PO QID #120 ml 12/31/16 [Rx] Subcutaneous Insulin Pump [T:Slim] 1 each SQ AD PRN 01/15/17 [History] Atorvastatin [Lipitor] 40 mg PO HS 01/18/17 [History] Levofloxacin [Levaquin] 750 mg PO DAILY #9 tablet 01/19/17 [Rx] 3 Allergy/AdvReac Type Severity Reaction Status Date / Time metformin Allergy Hives Verified 12/19/16 10:37 pioglitazone [From Actos] Allergy Hives Verified 12/19/16 10:37 trazodone Allergy Hives Verified 12/19/16 10:37 All Systems PM: A 10-system review of systems was performed and is negative for pertinent findings except as documented above in the HPI. Review of systems: Denies chest pain, other systems out of the 10 reviewed were negative, no fevers - Constitutional Vitals: Temp Pulse Resp BP Pulse Ox 97.6 F 80 18 110/83 99 02/04/17 03:08 02/04/17 04:26 02/04/17 04:26 02/04/17 04:26 02/04/17 04:26 General appearance: Present: A&O X 3 - Head Head exam: Present: atraumatic, normocephalic - Eye Eye exam: Present: PERRL, conjuntiva pink, sclera anicteric Pupils: Present: PERRL - Neck Neck exam general surgery: Present: supple, trachea midline. Absent: lymphadenopathy - Respiratory Respiratory exam: Present: CTAB, rales (Diffuse crackles). Absent: accessory muscle use, rhonchi, wheezes - Cardiovascular Cardiovascular exam: Present: RRR, +S1, +S2. Absent: diastolic murmur, gallop, rubs, systolic murmur Additional comments: Insulin pump left abdominal area - GI/Abdominal GI/Abdominal exam: Present: normal bowel sounds, soft, no peritoneal signs. Absent: distended, tenderness - Extremities Exam Extremities exam: Present: pedal edema (+3 pitting edema in the lower extremities, multiple wounds on the left foot covered by dressing), warm, radial pulses palpable and symmetrical. Absent: calf tenderness, cyanotic - Neurological Exam Neurological exam: Present: CN II-XII intact, oriented X3, no focal deficits. Absent: pronater drift, facial droop, speech deficit - Skin Skin exam: Present: dry, intact Internal Med - H&P Results - Labs CBC & Chem 7: 02/04/17 03:51 02/04/17 03:51
[2017-02-04] MEDS: Furosemide 40 MG/4 ML VIAL IVP SCH ×2 (08:12→18:07)
[2017-02-04] MEDS: Aspirin 81 MG TAB.CHEW PO SCH (08:13)
[2017-02-04] MEDS: *HR* Amiodarone 200 MG TABLET PO SCH (08:13)
[2017-02-04] MEDS: Nicotine 14 MG PATCH.TD24 TD SCH (08:13)
[2017-02-04] MEDS: Metoprolol XL (24 HR) Succ 50 MG TAB.ER.24H PO SCH (08:13)
[2017-02-04] MEDS ORDERED: *HR* Dextrose 50 % in Water (Syg) 50 ML SYRINGE IVP PRN (08:36)
[2017-02-04] MEDS ORDERED: D5% in Water 1,000 ML IVC PRN (08:36)
[2017-02-04] MEDS ORDERED: Dextrose Gel 15 GM PO PRN ×2 (08:36)
[2017-02-04] MEDS: *HR* HYDROcodone/Acet 10/325 mg TABLET PO PRN ×2 (08:37→21:39)
[2017-02-04] MEDS: Insulin LISPRO 300 UNITS/3 ML VIAL SQ SCH ×3 (11:41→21:33)
--- NOTE | 2017-02-04 12:30 | Internal Med Progress Note ---
Date of Encounter: 02/04/17 Time of Encounter: 12:28 - Assessment and plan (1) Acute on chronic systolic (congestive) heart failure Current Visit: No Status: Acute Assessment and plan: Reviewed 2 D Echo from 03/17 showed LVEF 25% Repeat 2 D Echo now cont IV lasix 60mg BID Strict I & O resumed other home meds ASA,STatin, B gemini and ACEI (2) Elevated troponin Current Visit: No Status: Resolved Assessment and plan: Due to demand ischemia with CHF exacerbation No further work up needed cont on tele (3) COPD (chronic obstructive pulmonary disease) Current Visit: No Status: Chronic Assessment and plan: not in exacerbation cont home nebulizer regimen Qualifiers: COPD type: unspecified COPD Qualified Code(s): J44.9 - Chronic obstructive pulmonary disease, unspecified (4) CAD (coronary artery disease) Current Visit: No Status: Chronic Assessment and plan: resumed home meds Qualifiers: Coronary Disease-Associated Artery/Lesion type: unspecified vessel or lesion type [place] vs. transplanted heart: [place] heart Associated angina: without angina Qualified Code(s): I25.10 - Atherosclerotic heart disease of [place] coronary artery without angina pectoris (5) Tobacco abuse Current Visit: No Status: Chronic Assessment and plan: counseled to quit on nicotine patch (6) PVD (peripheral vascular disease) Current Visit: No Status: Acute Assessment and plan: cont ASA and Coumadin (7) Chronic kidney disease Current Visit: Yes Status: Chronic Assessment and plan: Slightly elevated Cr than baseline - mostly due to cardiorenal syndrome cont close monitoring Qualifiers: Chronic kidney disease stage: stage 3 (moderate) Qualified Code(s): N18.3 - Chronic kidney disease, stage 3 (moderate) - Subjective Interval history: Mr. Lance is a 61 year old male with a past medical history of systolic CHF, COPD oxygen dependent using 2 L at home has an ejection fraction of 25% with an AICD, tobacco use, recently discharged from the hospital on 01/19/2017 where he was treated for cellulitis and COPD exacerbation. Patient says that he has been more short of breath for the past 2 days bringing up some phlegm/whitish. Complaining of worsening leg swelling. White blood cell count to 16 INR is 2 glucose is 176, he is diabetic but uses an insulin pump. Troponin 0.05 but he is not complaining of any chest pain although he is complaining of severe orthopnea. Chest x-ray shows pulmonary vascular congestion BNP is 1471 his creatinine has increased up to 2 from a baseline of 1.68 potassium is 3.3. He takes torsemide 100 mg twice a day. Pt was admitted here for acute systolic CHF exacerbation and started him on IV diuresis. He stated his SOB is little better, but still has swelling in legs. He denied any CP. No N/V. - Constitutional Vitals: Temp Pulse Resp BP Pulse Ox 97.9 F 80 18 99/62 99 02/04/17 11:18 02/04/17 11:18 02/04/17 11:18 02/04/17 11:18 02/04/17 11:18 General appearance: Present: A&O X 3 - Head Head exam: Present: atraumatic, normal inspection - Neck Neck exam general surgery: Present: supple - Respiratory Respiratory exam: Present: decreased breath sounds, wheezes (moderate). Absent : rales, respiratory distress, rhonchi - Cardiovascular Cardiovascular exam: Present: RRR, +S1, +S2. Absent: systolic murmur - GI/Abdominal GI/Abdominal exam: Present: normal bowel sounds, soft. Absent: rebound, rigid, tenderness - Extremities Exam Extremities exam: Present: pedal edema (2-3 + Pitting edema in both legs.. Dressing placed on left leg). Absent: calf tenderness, tenderness - Back Exam Back exam: Absent: CVA tenderness (L), CVA tenderness (R) - Neurological Exam Neurological exam: Present: alert, oriented X3 - Psychiatric Psychiatric exam: Present: normal affect, normal mood Internal Medicine: Result - Labs CBC & Chem 7: 02/04/17 03:51 02/04/17 03:51 - ABG Interpretation ABG results: PT/INR, D-dimer PT 21.4 Seconds (9.4-12.1) H 02/04/17 03:51 Consult Discharge Plan - Plan Referrals: Lilo Beltran MD [Primary Care Provider] -
[2017-02-04] MEDS: *HR* OxyCODONE Immed Rel 5 MG TABLET PO PRN (14:44)
[2017-02-04] MEDS ORDERED: Warfarin perPT PO PRN (18:00)
[2017-02-04] MEDS: *HR* Warfarin 5 MG TABLET PO SCH (18:08)
[2017-02-05 04:49] LABS: Basophils # 0.1 K/mcL (0.0-0.2); Basophils % 0.6 %; Eosinophils # 0.2 K/mcL (0.0-0.6); Eosinophils % 2.5 %; Hematocrit 38.3 % (37.5-50.1); Hemoglobin 12.4 g/dL (12.9-16.9); Immature Granulocytes % 0.9 % (0-4); Lymphocytes # 1.5 K/mcL (0.6-4.6); Lymphocytes % 14.8 %; Mean Corpuscular HGB Conc 32.4 g/dL (31.6-35.5); Mean Corpuscular Hemoglobin 30.8 pg (28.0-33.3); Mean Platelet Volume 10.5 fL (9.4-12.4); Monocytes # 0.9 K/mcL (0.0-1.3); Monocytes % 8.9 %; Neutrophils # 7.1 K/mcL (1.6-8.9); Platelet Count 283 K/mcL (140-400); Red Blood Count 4.03 M/mcL (4.19-5.50); Red Cell Distribution Width 16.2 % (11.5-14.5); Segmented Neutrophils % 72.3 %
[2017-02-05 05:00] LABS: INR 1.7
[2017-02-05 05:03] LABS: BUN/Creatinine Ratio 25 (6-26); Blood Urea Nitrogen 33 mg/dL (8-26); Calcium 9.2 mg/dL (8.6-10.8); Carbon Dioxide 29 mEq/L (19-29); Chloride 97 mEq/L (98-109); Glucose 162 mg/dL (70-99); Osmolality,Calculated 297 (280-300); Potassium 3.1 mEq/L (3.5-4.5); Sodium 138 mEq/L (136-145); eGFR For African Americans > 60 (> 60); eGFR For Non-African Americans 55 (> 60)
[2017-02-05] MEDS: *HR* OxyCODONE Immed Rel 5 MG TABLET PO PRN ×2 (06:48→23:10)
[2017-02-05] MEDS ORDERED: Nitroglycerin 0.4 MG TAB.SUBL SL PRN (07:42)
[2017-02-05] MEDS: Insulin LISPRO 300 UNITS/3 ML VIAL SQ SCH ×4 (08:17→20:28)
[2017-02-05] MEDS: Nicotine 14 MG PATCH.TD24 TD SCH (08:18)
[2017-02-05] MEDS: Furosemide 40 MG/4 ML VIAL IVP SCH ×2 (08:18→16:02)
[2017-02-05] MEDS: Metoprolol XL (24 HR) Succ 50 MG TAB.ER.24H PO SCH (08:18)
[2017-02-05] MEDS: *HR* Amiodarone 200 MG TABLET PO SCH (08:18)
[2017-02-05] MEDS: Aspirin 81 MG TAB.CHEW PO SCH (08:18)
[2017-02-05] MEDS: Cholecalciferol (D-3) 1,000 UNIT TABLET PO SCH (08:25)
[2017-02-05] MEDS: (Fluticasone/Vilanterol [Breo Ellipta 100-25 Mcg Inh]) IH SCH (08:25)
[2017-02-05] MEDS: Fluticasone Propionate Nasal 50 MCG/SPRAY BOTTLE NS SCH (08:52)
--- NOTE | 2017-02-05 09:28 | Internal Med Progress Note ---
Date of Encounter: 02/05/17 Time of Encounter: 08:30 - Assessment and plan (1) Acute exacerbation of CHF (congestive heart failure) Current Visit: Yes Status: Acute Assessment and plan: Acute exacerbation of chronic CHF systolic dysfunction LVEF 25% - symptoms slowly improving, bilateral lower leg edema persistent Continue IV Lasix, Toprol-XL, Lisinopril, continue all home medications EKG - paced rhythm, no acute changes Troponin - 0.05, likely due to demand ischemia BNP - 1471 Chest x-ray - pulmonary vascular congestion Echocardiogram - pending Cardiac telemetry, labs in a.m., monitor closely Fluid restriction, strict I's and O's, daily weights Qualifiers: Congestive heart failure type: systolic Qualified Code(s): I50.23 - Acute on chronic systolic (congestive) heart failure (2) COPD (chronic obstructive pulmonary disease) Current Visit: No Status: Chronic Assessment and plan: COPD, stable - not in exacerbation Continue DuoNeb breathing treatment PRN Continue home dose of Breo Qualifiers: COPD type: unspecified COPD Qualified Code(s): J44.9 - Chronic obstructive pulmonary disease, unspecified (3) Atrial fibrillation Current Visit: No Status: Chronic Assessment and plan: Chronic atrial fibrillation, rate controlled Continue home dose of Amiodarone, Toprol-XL Coumadin for anticoagulation Qualifiers: Atrial fibrillation type: chronic Qualified Code(s): I48.2 - Chronic atrial fibrillation (4) CAD (coronary artery disease) Current Visit: No Status: Chronic Assessment and plan: Coronary artery disease status post CABG and stents, stable Continue Aspirin, Lipitor, Toprol-XL Troponin - 0.5, likely due to CHF and demand ischemia EKG - paced rhythm, no significant changes Qualifiers: Coronary Disease-Associated Artery/Lesion type: unspecified vessel or lesion type [place] vs. 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 Qualifiers: Chronic kidney disease stage: stage 3 (moderate) Qualified Code(s): N18.9 - Chronic kidney disease, unspecified (7) PVD (peripheral vascular disease) Current Visit: No Status: Acute Assessment and plan: History of peripheral vascular disease, chronic left lower leg wound cont ASA, Coumadin, Lipitor Wound care consult (8) Hypothyroidism Current Visit: No Status: Chronic Assessment and plan: Continue home dose of Levothyroxine Qualifiers: Hypothyroidism type: unspecified Qualified Code(s): E03.9 - Hypothyroidism , unspecified (9) Tobacco abuse Current Visit: No Status: Chronic Assessment and plan: Counseled about cessation, nicotine patch (10) Obesity, Class III, BMI 40-49.9 (morbid obesity) Current Visit: No Status: Chronic Assessment and plan: BMI 43.2, advised lifestyle modification (11) DVT prophylaxis Current Visit: Yes Status: Acute Assessment and plan: Continue anticoagulation with Coumadin - Time Spent With Patient 25 - 35 minutes - Subjective Interval history: Examined this morning. Patient is awake and alert. Not in any distress. Denies chest pain. States his shortness of breath has improved. Sitting up comfortably. Tolerating oral diet. Hemodynamically stable. No fever. Continues to have bilateral lower leg swelling. No other acute events or complaints. - Constitutional Vitals: Temp Pulse Resp BP Pulse Ox 97.8 F 66 17 100/60 94 02/05/17 07:51 02/05/17 07:51 02/05/17 07:51 02/05/17 07:51 02/05/17 07:51 General appearance: Present: cooperative, A&O X 3, morbidly obese, pleasant, no acute distress, answers questions appropriately - Head Head exam: Present: atraumatic - Eye Eye exam: Present: EOMI - ENT ENT exam: Present: mucous membranes moist - Respiratory Respiratory exam: Present: decreased breath sounds (Slightly decreased in both bases), wheezes (Mild bilateral). Absent: rales, rhonchi, tachypnea - Cardiovascular Cardiovascular exam: Present: irregular rhythm, +S1, +S2, systolic murmur - GI/Abdominal GI/Abdominal exam: Present: soft (Obese), no peritoneal signs. Absent: distended, firm, guarding, tenderness - Extremities Exam Extremities exam: Present: pedal edema (Bilateral 4+ pitting edema, dressing over left lower leg), radial pulses palpable and symmetrical. Absent: calf tenderness, cyanotic - Neurological Exam Neurological exam: Present: alert, oriented X3, no focal deficits. Absent: facial droop, speech deficit Internal Medicine: Result - Labs CBC & Chem 7: 02/05/17 04:32 02/05/17 04:32 Labs: Short CBC 02/05/17 Range/Units 04:32 WBC 9.8 (4.3-11.1) K/mcL Hgb 12.4 L (12.9-16.9) g/dL Hct 38.3 (37.5-50.1) % Plt Count 283 (140-400) K/mcL Neutrophils # 7.1 (1.6-8.9) K/mcL BMP 02/05/17 04:32 Sodium 138 Potassium 3.1 L Chloride 97 L Carbon Dioxide 29 BUN 33 H Creatinine 1.32 H Glucose 162 H Calcium 9.2 - ABG Interpretation ABG results: PT/INR, D-dimer PT 19.0 Seconds (9.4-12.1) H 02/05/17 04:32 Consult Discharge Plan - Plan Referrals: Lilo Beltran MD [Primary Care Provider] -
[2017-02-05] MEDS: *HR* HYDROcodone/Acet 10/325 mg TABLET PO PRN ×2 (16:02→23:15)
--- NOTE | 2017-02-05 16:51 | Electrocardiograph Report ---
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
[2017-02-05] MEDS ORDERED: Perflutren Lipid Microsphere 1.3 ML in 0.9 % Sodium Chloride 8.7 ML IVP ONE (16:54)
[2017-02-05] MEDS: *HR* Warfarin 5 MG TABLET PO SCH (18:17)
[2017-02-06 05:21] LABS: INR 1.7; Prothrombin Time 18.8 Seconds (9.4-12.1)
[2017-02-06 05:29] LABS: BUN/Creatinine Ratio 25 (6-26); Blood Urea Nitrogen 33 mg/dL (8-26); Carbon Dioxide 27 mEq/L (19-29); Chloride 97 mEq/L (98-109); Glucose 174 mg/dL (70-99); Osmolality,Calculated 295 (280-300); Potassium 3.3 mEq/L (3.5-4.5); Sodium 137 mEq/L (136-145); eGFR For African Americans > 60 (> 60); eGFR For Non-African Americans 55 (> 60)
[2017-02-06] MEDS: *HR* OxyCODONE Immed Rel 5 MG TABLET PO PRN (05:41)
[2017-02-06 07:04] VITALS: BP 104/70
[2017-02-06] MEDS: (Fluticasone/Vilanterol [Breo Ellipta 100-25 Mcg Inh]) IH SCH (08:01)
[2017-02-06] MEDS: Cholecalciferol (D-3) 1,000 UNIT TABLET PO SCH (08:02)
[2017-02-06] MEDS: *HR* Amiodarone 200 MG TABLET PO SCH (08:02)
[2017-02-06] MEDS: Insulin LISPRO 300 UNITS/3 ML VIAL SQ SCH (08:03)
[2017-02-06] MEDS: Aspirin 81 MG TAB.CHEW PO SCH (08:03)
[2017-02-06] MEDS: Fluticasone Propionate Nasal 50 MCG/SPRAY BOTTLE NS SCH (08:03)
[2017-02-06] MEDS: Nicotine 14 MG PATCH.TD24 TD SCH (08:03)
[2017-02-06] MEDS: Furosemide 40 MG/4 ML VIAL IVP SCH (08:11)
[2017-02-06] MEDS: Metoprolol XL (24 HR) Succ 50 MG TAB.ER.24H PO SCH (08:11)
--- NOTE | 2017-02-06 09:19 | Discharge Summary ---
Date of Encounter: 02/06/17 Time of Encounter: 07:55 - Discharge Diagnosis (1) Acute exacerbation of CHF (congestive heart failure) Priority: Primary Status: Acute Comments: Acute exacerbation of chronic CHF systolic dysfunction LVEF 25% - symptoms now improved, bilateral lower leg edema persistent Continue Torsemide, Toprol-XL, Lisinopril, continue all home medications EKG - paced rhythm, no acute changes Troponin - 0.05, likely due to demand ischemia BNP - 1471 Chest x-ray - pulmonary vascular congestion Echocardiogram (03/11/2016) - LVEF 25%, global hypokinesis, severely dilated LV , moderately dilated RV Fluid restriction, strict I's and O's, daily weights Patient insists on being discharged today, states he will follow-up with his PCP tomorrow Advised to return if symptoms worsen Qualifiers: Congestive heart failure type: systolic Qualified Code(s): I50.23 - Acute on chronic systolic (congestive) heart failure (2) COPD (chronic obstructive pulmonary disease) Priority: Primary Status: Chronic Comments: COPD, stable - not in exacerbation Continue DuoNeb breathing treatment PRN Continue home dose of Breo Qualifiers: COPD type: unspecified COPD Qualified Code(s): J44.9 - Chronic obstructive pulmonary disease, unspecified (3) Atrial fibrillation Priority: Primary Status: Chronic Comments: Chronic atrial fibrillation, rate controlled Continue home dose of Amiodarone, Toprol-XL Continue home dose of Coumadin for anticoagulation Advised to follow up with Coumadin clinic for PT/INR recheck PCP to adjust Coumadin dose Qualifiers: Atrial fibrillation type: chronic Qualified Code(s): I48.2 - Chronic atrial fibrillation (4) CAD (coronary artery disease) Priority: Secondary Status: Chronic Comments: Coronary artery disease status post CABG and stents, stable Continue Aspirin, Lipitor, Toprol-XL Troponin - 0.5, likely due to CHF and demand ischemia EKG - paced rhythm, no significant changes Qualifiers: Coronary Disease-Associated Artery/Lesion type: unspecified vessel or lesion type [place] vs. transplanted heart: [place] heart Associated angina: without angina Qualified Code(s): I25.10 - Atherosclerotic heart disease of [place] coronary artery without angina pectoris (5) DM (diabetes mellitus) Priority: Secondary Status: Chronic Comments: Type 2 diabetes mellitus, insulin-dependent, hyperglycemia Patient is on insulin pump at home, advised to continue regular home dose Qualifiers: Diabetes mellitus type: type 2 Diabetes mellitus complication status: with unspecified complications Diabetes mellitus rn long term care insulin use: with jail use Qualified Code(s): E11.8 - Type 2 diabetes mellitus with unspecified complications (6) CKD (chronic kidney disease) Priority: Secondary Status: Chronic Comments: Chronic kidney disease stage III, stable - creatinine now back to baseline Initial acute kidney injury likely due to cardiorenal syndrome Qualifiers: Chronic kidney disease stage: stage 3 (moderate) Qualified Code(s): N18.3 - Chronic kidney disease, stage 3 (moderate) (7) PVD (peripheral vascular disease) Priority: Secondary Status: Chronic Comments: History of peripheral vascular disease, chronic left lower leg wound cont ASA, Coumadin, Lipitor Patient follows up with podiatry as outpatient for chronic left lower leg wound (8) Hypothyroidism Priority: Secondary Status: Chronic Comments: Continue home dose of Levothyroxine Qualifiers: Hypothyroidism type: unspecified Qualified Code(s): E03.9 - Hypothyroidism , unspecified (9) Tobacco abuse Priority: Secondary Status: Chronic Comments: Counseled about cessation, nicotine patch (10) Obesity, Class III, BMI 40-49.9 (morbid obesity) Priority: Secondary Status: Chronic Comments: BMI 43.2, advised lifestyle modification - Discharge Medications Prescriptions: Ipratropium/Albuterol Neb [Duoneb] 3 ml IH [id number] PRN #30 inhsol PRN Reason: Shortness Of Breath/Wheezing Nicotine Patch [Nicoderm] 14 mg TD DAILY #30 patch.td24 Home Medications: Amiodarone [Cordarone] 200 mg PO DAILY 09/06/15 [History] Levothyroxine [Synthroid] 50 mcg PO HS 09/06/15 [History] Metoprolol Succinate 100 mg PO DAILY 09/06/15 [History] Nitroglycerin [Nitrostat] 0.4 mg SL Q5M PRN 09/06/15 [History] Oxygen 2 l NS AD 09/06/15 [History] Warfarin [Coumadin] 5 mg PO SUMOWEFRSA 09/06/15 [History] Warfarin [Coumadin] 7.5 mg PO TUTH 11/13/15 [History] Aspirin 81 mg PO DAILY 30 Days tab.chew 11/16/15 [Rx] Albuterol Sulfate [Albuterol Inhaler] 2 puff IH Q6HR PRN 03/14/16 [History] Torsemide 100 mg PO BID 03/14/16 [History] HYDROcodone/Acet 10/325 mg [[place] 10-325 mg] 1 tab PO BID PRN 12/19/16 [History] Tamsulosin [Flomax] 0.4 mg PO DAILY 12/19/16 [History] Cholecalciferol (D-3) [Vitamin D] 1,000 unit PO DAILY 12/20/16 [History] Lisinopril [Zestril] 5 mg PO DAILY tablet 12/21/16 [Rx] Acetaminophen [Tylenol] 650 mg PO Q6HR PRN tablet 12/28/16 [Rx] Fluticasone/Vilanterol [Breo Ellipta 100-25 Mcg INH] 1 each IH DAILY #1 blst.w.dev 12/28/16 [Rx] Nystatin [Nystatin Suspension] 100,000 units PO QID #120 ml 12/31/16 [Rx] Subcutaneous Insulin Pump [T:Slim] 1 each SQ AD 01/15/17 [History] Atorvastatin [Lipitor] 40 mg PO HS 01/18/17 [History] Ipratropium/Albuterol Neb [Duoneb] 3 ml IH [id number] PRN #30 inhsol 02/06/17 [Rx] Nicotine Patch [Nicoderm] 14 mg TD DAILY #30 patch.td24 02/06/17 [Rx] Allergies/Adverse Reactions: 3 Allergy/AdvReac Type Severity Reaction Status Date / Time metformin Allergy Hives Verified 12/19/16 10:37 pioglitazone [From Actos] Allergy Hives Verified 12/19/16 10:37 trazodone Allergy Hives Verified 12/19/16 10:37 Procedures/tests Complete & Pending: Procedures Performed prior 72 hours Category Date Time Status EV echocardiogram w enhance Routine Y 02/05/17 09:48 Completed Date of admission: 02/04/17 05:29 Primary care physician: Lilo Beltran, Consults: 02/04/17 14:15 Consult to Wound Care [CONS] Routine Reason for Consult: left foot. 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 Just needing wound care orders. I'm going to use kerlix and wrap with coband Call Completed: No 02/06/17 07:31 Consult for Pharmacy Education [CONS] Routine Reason for Consult: warafrin dosing Call Completed: No Anticipated date of discharge: 02/06/17 - Patient Status Disposition: Home Health Service Condition: Fair Functional capacity at discharge: independent ambulation Overall status at discharge: patient is progressing back to baseline - Discharge Instructions Instructions: Heart Failure (DC) Follow Up With: Lilo Beltran MD [Primary Care Provider] - 02/07/17 10:30 am Heidi Lancaster CNP [Partnered Physician] - 04/10/17 3:00 pm Additional Instructions: - Continue home meds as per discharge instructions - Continue home dose of Coumadin - Check PT/INR in 2 days time - PCP to adjust Coumadin dose - Return if symptoms worsen - Follow up with PCP - Diet and Activity Activity: increase activity as tolerated, resume usual activities as tolerated, wear oxygen at all times Diet: diabetic diet, low fat, low cholesterol, low salt diet Hospital course: Mr. Lance is a 61 year old male with past medical history of atrial fibrillation , cardiomyopathy, coronary disease, COPD, diabetes, hyperlipidemia, hypertension , chronic disease, hypothyroidism and BPH. He presented to the ED with complaints of shortness of breath. Admitted for acute exacerbation of chronic systolic CHF. He also had elevated troponins which is chronic. He was continued on aspirin and his home dose of Coumadin. Echo revealed LVEF 25%. Patient has been continued on beta gemini and HENRIQUE inhibitor. Patient was on high-dose IV Lasix and he has diuresed well. His shortness of breath has now resolved. Patient has also been advised to continue DuoNeb breathing treatment at home and to continue home oxygen use continuously. Patient has been advised fluid restriction. His INR is subtherapeutic and he has been advised to continue his regular home dose of Coumadin and recheck PT/INR in 2 days time. Patient has been explained about his condition and plan of care in detail. He understood and agreed. No unanswered questions. Patient states he feels better and wants to go home today. No other acute events or complications during his stay in the hospital. He is ambulating well and tolerating oral diet well. Patient is being discharged in stable condition. Time spent discussing smoking cessation with patient: 3 to 10 minutes - Time Spent with Patient Total time spent providing and/or coordinating discharge services: Less than 30 minutes - Constitutional Vitals: Temp Pulse Resp BP Pulse Ox 98.0 F 80 18 104/70 100 02/06/17 07:03 02/06/17 07:03 02/06/17 07:03 02/06/17 07:03 02/06/17 07:03 General appearance: Present: cooperative, A&O X 3, morbidly obese, pleasant, no acute distress, answers questions appropriately - Head Head exam: Present: atraumatic - Eye Eye exam: Present: EOMI - ENT ENT exam: Present: mucous membranes moist - Respiratory Respiratory exam: Present: decreased breath sounds (Slightly decreased in both bases, otherwise clear to auscultation). Absent: rales, rhonchi, wheezes, tachypnea - Cardiovascular Cardiovascular exam: Present: irregular rhythm, +S1, +S2, systolic murmur - GI/Abdominal GI/Abdominal exam: Present: soft (Obese). Absent: distended, firm, guarding, tenderness - Extremities Exam Extremities exam: Present: pedal edema (Bilateral 4+ pitting edema, dressing over left leg), radial pulses palpable and symmetrical. Absent: calf tenderness , cyanotic - Neurological Exam Neurological exam: Present: alert, oriented X3, no focal deficits. Absent: facial droop, speech deficit
--- NOTE | 2017-02-06 09:36 | Physician Discharge Referral ---
Home Health/Hosp Referral Info Transfer to: Home Health Provider in Charge Post Discharge: PCP - Diagnosis (1) Acute exacerbation of CHF (congestive heart failure) Priority: Primary Status: Acute (2) COPD (chronic obstructive pulmonary disease) Priority: Primary Status: Chronic (3) Atrial fibrillation Priority: Primary Status: Chronic (4) CAD (coronary artery disease) Priority: Secondary Status: Chronic (5) DM (diabetes mellitus) Priority: Secondary Status: Chronic (6) CKD (chronic kidney disease) Priority: Secondary Status: Chronic (7) PVD (peripheral vascular disease) Priority: Primary Status: Chronic (8) Hypothyroidism Priority: Secondary Status: Chronic (9) Tobacco abuse Priority: Secondary Status: Chronic (10) Obesity, Class III, BMI 40-49.9 (morbid obesity) Priority: Secondary Status: Chronic - Respiratory Orders Oxygen / L per min (2 L/m at all times) Smoking Cessation: Smoking cessation has been advised. For more information, call the [employer] Quit Line at 1-997-QMXM-NOW. - Diet/Nutrition Diet/Nutrition Orders: Cardiac - Activity Activity Orders: Ambulate - Services Needed Following services are medically necessary services: Nursing, Home Health Aide, Physical Therapy Home Care Orders: Dressing change to the left lower leg daily - Transfer Medications Prescriptions: Ipratropium/Albuterol Neb [Duoneb] 3 ml IH [id number] PRN #30 inhsol PRN Reason: Shortness Of Breath/Wheezing Nicotine Patch [Nicoderm] 14 mg TD DAILY #30 patch.td24 Home Medications: Amiodarone [Cordarone] 200 mg PO DAILY 09/06/15 [History] Levothyroxine [Synthroid] 50 mcg PO HS 09/06/15 [History] Metoprolol Succinate 100 mg PO DAILY 09/06/15 [History] Nitroglycerin [Nitrostat] 0.4 mg SL Q5M PRN 09/06/15 [History] Oxygen 2 l NS AD 09/06/15 [History] Warfarin [Coumadin] 5 mg PO SUMOWEFRSA 09/06/15 [History] Warfarin [Coumadin] 7.5 mg PO TUTH 11/13/15 [History] Aspirin 81 mg PO DAILY 30 Days tab.chew 11/16/15 [Rx] Albuterol Sulfate [Albuterol Inhaler] 2 puff IH Q6HR PRN 03/14/16 [History] Torsemide 100 mg PO BID 03/14/16 [History] HYDROcodone/Acet 10/325 mg [[place] 10-325 mg] 1 tab PO BID PRN 12/19/16 [History] Tamsulosin [Flomax] 0.4 mg PO DAILY 12/19/16 [History] Cholecalciferol (D-3) [Vitamin D] 1,000 unit PO DAILY 12/20/16 [History] Lisinopril [Zestril] 5 mg PO DAILY tablet 12/21/16 [Rx] Acetaminophen [Tylenol] 650 mg PO Q6HR PRN tablet 12/28/16 [Rx] Fluticasone/Vilanterol [Breo Ellipta 100-25 Mcg INH] 1 each IH DAILY #1 blst.w.dev 12/28/16 [Rx] Nystatin [Nystatin Suspension] 100,000 units PO QID #120 ml 12/31/16 [Rx] Subcutaneous Insulin Pump [T:Slim] 1 each SQ AD 01/15/17 [History] Atorvastatin [Lipitor] 40 mg PO HS 01/18/17 [History] Ipratropium/Albuterol Neb [Duoneb] 3 ml IH [id number] PRN #30 inhsol 02/06/17 [Rx] Nicotine Patch [Nicoderm] 14 mg TD DAILY #30 patch.td24 02/06/17 [Rx] Allergies/Adverse Reactions: 3 Allergy/AdvReac Type Severity Reaction Status Date / Time metformin Allergy Hives Verified 12/19/16 10:37 pioglitazone [From Actos] Allergy Hives Verified 12/19/16 10:37 trazodone Allergy Hives Verified 12/19/16 10:37 Certification: Further, I certify that my clinical findings support that this patient is homebound (i.e. absences from home require considerable and taxing effort and are for medical reasons or mandaeism services or infrequently or short duration when for other reasons) because: Homebound Reason: Patient requires assistance of a person or device to safely leave home Attestation: My signature below is to certify that this patient is under my care and that I, or nurse practitioner, or a physician's financial sales assistant working with me, has a face-to -face encounter with this patient.
[2017-02-06] MEDS: *HR* HYDROcodone/Acet 10/325 mg TABLET PO PRN (11:15)
[2017-02-06] MEDS ORDERED: *HR* Warfarin 7.5 MG TABLET PO SCH (18:00)
== END 2017-02-06 12:04 | disposition home health service (06) ==
LOC: EMEROO 03:06 → 3BNU 03:06 → SUATTDRO 05:29 → 3BNU 06:07
PROVIDERS: ADMIT Internal Medicine; ATTEND Family Medicine

== ENCOUNTER 2017-02-15 10:04 | Inpatient (IN) ==
[2017-02-15] MEDS ORDERED: Ipratropium/Albuterol Neb 3 ML IH ONE (10:20)
[2017-02-15] MEDS ORDERED: Ondansetron ODT 4 MG TAB.RAPDIS SL ONE (10:21)
[2017-02-15] MEDS ORDERED: *HR* HYDROmorphone (PF) 1 MG/ML SYRINGE IM ONE (10:21)
--- NOTE | 2017-02-15 10:24 | Emergency Department Note ---
Disposition Clinical Impression: COPD (chronic obstructive pulmonary disease) Qualifiers: COPD type: unspecified COPD Qualified Code(s): J44.9 - Chronic obstructive pulmonary disease, unspecified CHF (congestive heart failure) Qualifiers: Congestive heart failure type: unspecified congestive heart failure type Congestive heart failure chronicity: acute Qualified Code(s): I50.9 - Heart failure, unspecified Disposition: Admitted As Inpatient Condition: Fair Referrals: Lilo Beltran MD [Primary Care Provider] - Forms: ED Satisfaction Letter, Work/School Release Time of Disposition: 11:55 General Adult HPI - General Chief complaint: ED General Medical Stated complaint: multiple complaints Time Seen by Provider: 02/15/17 10:16 Source: patient Mode of arrival: ambulatory Limitations: no limitations Nursing Notes Reviewed: Yes Vital Signs Reviewed: Yes - History of Present Illness HPI Narrative: 61-year-old with CHF and COPD comes in with increasing shortness of breath and also increasing chronic back pain. It's on his back gets worse his breathing gets worse. Pt Subjective Complaint: Shortness of breath chronic back pain that has worsened. 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 Radiation: non-radiation Pain Severity: severe, similar to prior episodes Pain Scale: 10 Quality: burning, aching Consistency: constant Improves with: nothing Worsens with: nothing Treatments Prior to Arrival: none - Related Data Home Medications Medication Instructions Recorded Confirmed Amiodarone [Cordarone] 200 mg PO DAILY 09/06/15 02/15/17 Levothyroxine [Synthroid] 50 mcg PO HS 09/06/15 02/15/17 Metoprolol Succinate 100 mg PO DAILY 09/06/15 02/15/17 Nitroglycerin [Nitrostat] 0.4 mg SL Q5M PRN 09/06/15 02/15/17 Oxygen 2 l NS AD 09/06/15 02/15/17 Warfarin [Coumadin] 5 mg PO SUMOWEFRSA 09/06/15 02/15/17 Warfarin [Coumadin] 7.5 mg PO TUTH 11/13/15 02/15/17 Albuterol Sulfate [Albuterol 2 puff IH Q6HR PRN 03/14/16 02/15/17 Inhaler] Torsemide 100 mg PO BID 03/14/16 02/15/17 HYDROcodone/Acet 10/325 mg [[place] 1 tab PO BID PRN 12/19/16 02/15/17 10-325 mg] Tamsulosin [Flomax] 0.4 mg PO DAILY 12/19/16 02/15/17 Cholecalciferol (D-3) [Vitamin D] 1,000 unit PO DAILY 12/20/16 02/15/17 Subcutaneous Insulin Pump [T:Slim] 1 each SQ AD 01/15/17 02/15/17 Atorvastatin [Lipitor] 40 mg PO HS 01/18/17 02/15/17 Previous Rx's Medication Instructions Recorded Aspirin 81 mg PO DAILY 30 Days tab.chew 11/16/15 Lisinopril [Zestril] 5 mg PO DAILY tablet 12/21/16 Acetaminophen [Tylenol] 650 mg PO Q6HR PRN tablet 12/28/16 Fluticasone/Vilanterol [Breo 1 each IH DAILY #1 blst.w.dev 12/28/16 Ellipta 100-25 Mcg INH] Nystatin [Nystatin Suspension] 100,000 units PO QID #120 ml 12/31/16 Ipratropium/Albuterol Neb [Duoneb] 3 ml IH [id number] PRN #30 inhsol 02/06/17 Allergies Allergy/AdvReac Type Severity Reaction Status Date / Time metformin Allergy Hives Verified 12/19/16 10:37 pioglitazone [From Actos] Allergy Hives Verified 12/19/16 10:37 trazodone Allergy Hives Verified 12/19/16 10:37 All systems ED: reviewed and negative except as stated. Constitutional: Denies: fever, chills, weakness, weight change Eyes: Denies: eye pain, eye discharge, vision change ENT ED: Denies: ear pain, throat pain, dental pain, hearing loss, epistaxis, congestion, dysphagia Cardiovascular: Denies: chest pain, palpitations, dyspnea on exertion, edema, syncope Respiratory: Denies: cough, dyspnea, wheezes, hemoptysis, stridor Gastrointestinal: Denies: abdominal pain, nausea, vomiting, diarrhea, constipation, hematemesis, melena, hematochezia Genitourinary: Denies: urgency, dysuria, frequency, hematuria Musculoskeletal: Denies: back pain, neck pain, arthralgia, myalgia Integumentary: Denies: rash, abrasion, lesions Neurological: Denies: headache, weakness, numbness, paresthesias, confusion, abnormal gait, vertigo Psychiatric: Denies: anxiety, depression, suicidal thoughts, homicidal thoughts , auditory hallucinations, visual hallucinations Endocrine: Denies: fatigue Hematological/Lymphatic: Denies: easy bleeding, easy bruising Allergic/Immunologic: Denies: facial swelling, urticaria Past Medical History - Past Medical History Medical history: Reports: atrial fibrillation, cardiomyopathy, CHF, COPD, coronary artery disease, diabetes, hyperlipidemia, hypertension, other Surgical history: Reports: angioplasty/stent, coronary bypass (CABG), pacemaker/ AICD Psychiatric history: Reports: no psych history - Social History Smoking Status: Current every day smoker Smokeless Tobacco Status: No Alcohol use: Reports: none Drug use: Reports: none Physical Exam - General Limitations: no limitations General appearance: alert, in no apparent distress - Head Head exam: atraumatic, normocephalic, normal inspection - Eye Eye exam: Present: normal appearance, PERRL, EOMI - ENT ENT exam: normal exam, normal oropharynx, mucous membranes moist - Neck Neck exam: Present: normal inspection, full ROM, trachea midline - Chest Chest inspection: Present: normal inspection, symmetric chest wall rise - Respiratory Respiratory exam: Present: wheezes, accessory muscle use, prolonged expiratory phase - Cardiovascular Cardiovascular exam: Present: regular rate, normal rhythm, normal heart sounds - Abdominal Exam Abdominal exam: Present: soft, Non-Tender. Absent: tenderness, distention, guarding, rebound, rigidity - Extremities Exam Extremities exam: Present: pedal edema - Expanded Lower Extremity Exam Neurovascular/Tendon exam: Absent: motor deficit, sensory deficit, tendon deficit Gait: not tested/not observed - Back Exam Back exam: Present: normal inspection, full ROM. Absent: tenderness - Neurological Exam Neurological exam: Present: alert, oriented X3 - Psychiatric Psychiatric exam: Present: normal affect, normal mood - Skin Skin exam: Present: warm, dry, intact, normal color Course - Reevaluation(s) Reevaluation #1: History 1-year-old female with a history of CHF and COPD comes in with increasing shortness of breath. Patient given breathing treatment with some improvement in symptoms, workup here shows CHF. Time: 11:54 - Consultations Consultation #1: Discussed with Jason Eaton, some who will admit the patient. Time: 11:53 Vital Signs Temperature 97.5 F L 02/15/17 10:06 Pulse Rate 89 02/15/17 10:06 Respiratory Rate 20 02/15/17 10:06 Blood Pressure 115/73 02/15/17 10:06 O2 Sat by Pulse Oximetry 94 02/15/17 10:06 Temperature 97.5 F L 02/15/17 10:06 Pulse Rate 81 02/15/17 11:40 Respiratory Rate 20 02/15/17 11:40 Blood Pressure 127/70 02/15/17 11:40 O2 Sat by Pulse Oximetry 100 02/15/17 11:40 Oxygen Delivery Oxygen Delivery Nasal Cannula Medical Decision Making - Lab Data Lab results reviewed: Yes I reviewed the patient's lab results. Result diagrams: 02/15/17 10:26 02/15/17 10:26 Lab Results 02/15/17 02/15/17 02/15/17 Range/Units 10:26 10:26 10:26 WBC 11.3 H (4.3-11.1) K/mcL RBC 4.49 (4.19-5.50) M/mcL Hgb 13.8 (12.9-16.9) g/dL Hct 42.0 (37.5-50.1) % MCV 93.5 (83.0-100.0) fL MCH 30.7 (28.0-33.3) pg MCHC 32.9 (31.6-35.5) g/dL RDW 16.3 H (11.5-14.5) % Plt Count 336 (140-400) K/mcL MPV 10.1 (9.4-12.4) fL Immature Gran % 0.6 (0-4) % Seg Neutrophils % 75.5 % Lymphocytes % 10.8 % Monocytes % 8.7 % Eosinophils % 4.0 % Basophils % 0.4 % Neutrophils # 8.6 (1.6-8.9) K/mcL Lymphocytes # 1.2 (0.6-4.6) K/mcL Monocytes # 1.0 (0.0-1.3) K/mcL Eosinophils # 0.5 (0.0-0.6) K/mcL Basophils # 0.0 (0.0-0.2) K/mcL Sodium 135 L (136-145) mEq/L Potassium 3.4 L (3.5-4.5) mEq/L Chloride 95 L (98-109) mEq/L Carbon Dioxide 29 (19-29) mEq/L BUN 15 (8-26) mg/dL Creatinine 1.19 (0.72-1.25) mg/dL Est GFR ( Amer) > 60 (> 60) Est GFR (Non-Af Amer) > 60 (> 60) BUN/Creatinine Ratio 13 (6-26) Glucose 195 H (70-99) mg/dL Calculated Osmolality 286 (280-300) Lactic Acid 2.9 H (0.5-2.2) mmol/L Calcium 9.1 (8.6-10.8) mg/dL Troponin I (0-0.03) ng/mL B-Natriuretic Peptide (0-100) pg/mL 02/15/17 02/15/17 Range/Units 10:26 10:26 WBC (4.3-11.1) K/mcL RBC (4.19-5.50) M/mcL Hgb (12.9-16.9) g/dL Hct (37.5-50.1) % MCV (83.0-100.0) fL MCH (28.0-33.3) pg MCHC (31.6-35.5) g/dL RDW (11.5-14.5) % Plt Count (140-400) K/mcL MPV (9.4-12.4) fL Immature Gran % (0-4) % Seg Neutrophils % % Lymphocytes % % Monocytes % % Eosinophils % % Basophils % % Neutrophils # (1.6-8.9) K/mcL Lymphocytes # (0.6-4.6) K/mcL Monocytes # (0.0-1.3) K/mcL Eosinophils # (0.0-0.6) K/mcL Basophils # (0.0-0.2) K/mcL Sodium (136-145) mEq/L Potassium (3.5-4.5) mEq/L Chloride (98-109) mEq/L Carbon Dioxide (19-29) mEq/L BUN (8-26) mg/dL Creatinine (0.72-1.25) mg/dL Est GFR ( Amer) (> 60) Est GFR (Non-Af Amer) (> 60) BUN/Creatinine Ratio (6-26) Glucose (70-99) mg/dL Calculated Osmolality (280-300) Lactic Acid (0.5-2.2) mmol/L Calcium (8.6-10.8) mg/dL Troponin I 0.04 H* (0-0.03) ng/mL B-Natriuretic Peptide 709 H (0-100) pg/mL - Radiology Data Radiology results reviewed: Yes I reviewed the patient's radiology results. Chest X-Ray 02/15/17 10:20 IMPRESSION: 1. Cardiomegaly with vascular congestion and interstitial infiltrates likely representing edema and congestive failure. D/ / Keegan Hunt MD / Keegan Hunt MD Interpreting Provider: Keegan Hunt MD - EKG Data EKG #1 EKG results narrative: Paced rhythm.
[2017-02-15 10:35] LABS: Basophils % 0.4 %; Eosinophils # 0.5 K/mcL (0.0-0.6); Hemoglobin 13.8 g/dL (12.9-16.9); Immature Granulocytes % 0.6 % (0-4); Lymphocytes # 1.2 K/mcL (0.6-4.6); Lymphocytes % 10.8 %; Mean Corpuscular HGB Conc 32.9 g/dL (31.6-35.5); Mean Corpuscular Hemoglobin 30.7 pg (28.0-33.3); Mean Corpuscular Volume 93.5 fL (83.0-100.0); Mean Platelet Volume 10.1 fL (9.4-12.4); Monocytes % 8.7 %; Neutrophils # 8.6 K/mcL (1.6-8.9); Platelet Count 336 K/mcL (140-400); Red Blood Count 4.49 M/mcL (4.19-5.50); Red Cell Distribution Width 16.3 % (11.5-14.5); Segmented Neutrophils % 75.5 %
[2017-02-15 10:47] LABS: BUN/Creatinine Ratio 13 (6-26); Blood Urea Nitrogen 15 mg/dL (8-26); Calcium 9.1 mg/dL (8.6-10.8); Carbon Dioxide 29 mEq/L (19-29); Chloride 95 mEq/L (98-109); Glucose 195 mg/dL (70-99); Osmolality,Calculated 286 (280-300); Potassium 3.4 mEq/L (3.5-4.5); Sodium 135 mEq/L (136-145); eGFR For African Americans > 60 (> 60); eGFR For Non-African Americans > 60 (> 60)
[2017-02-15] MEDS ORDERED: Furosemide 40 MG/4 ML VIAL IVP ONE (11:28)
[2017-02-15] MEDS ORDERED: *HR* HYDROcodone/Acet 10/325 mg TABLET PO PRN (13:10)
[2017-02-15] MEDS ORDERED: Acetaminophen 325 MG TABLET PO PRN (13:10)
[2017-02-15] MEDS ORDERED: Nitroglycerin 0.4 MG TAB.SUBL SL PRN (13:10)
[2017-02-15] MEDS ORDERED: Naloxone 0.4 MG/ML INJ IVP PRN (13:14)
[2017-02-15] MEDS ORDERED: (Subcutaneous Insulin Pump [T:Slim] 1 EACH) SQ SCH (13:15)
--- NOTE | 2017-02-15 13:31 | Internal Med History&Physical ---
<Alfred Riojas P - Last Filed: 02/15/17 17:55> Date of Encounter: 02/15/17 Internal Medicine - H&P: HPI History of present illness: Mr. Lance is a 61 year old male Internal Medicine - H&P: Meds Amiodarone [Cordarone] 200 mg PO DAILY 09/06/15 [History] Levothyroxine [Synthroid] 50 mcg PO HS 09/06/15 [History] Metoprolol Succinate 100 mg PO DAILY 09/06/15 [History] Nitroglycerin [Nitrostat] 0.4 mg SL Q5M PRN 09/06/15 [History] Oxygen 2 l NS AD 09/06/15 [History] Warfarin [Coumadin] 5 mg PO SUMOWEFRSA 09/06/15 [History] Warfarin [Coumadin] 7.5 mg PO TUTH 11/13/15 [History] Aspirin 81 mg PO DAILY 30 Days tab.chew 11/16/15 [Rx] Albuterol Sulfate [Albuterol Inhaler] 2 puff IH Q6HR PRN 03/14/16 [History] Torsemide 100 mg PO BID 03/14/16 [History] HYDROcodone/Acet 10/325 mg [[place] 10-325 mg] 1 tab PO BID PRN 12/19/16 [History] Tamsulosin [Flomax] 0.4 mg PO DAILY 12/19/16 [History] Cholecalciferol (D-3) [Vitamin D] 1,000 unit PO DAILY 12/20/16 [History] Lisinopril [Zestril] 5 mg PO DAILY tablet 12/21/16 [Rx] Acetaminophen [Tylenol] 650 mg PO Q6HR PRN tablet 12/28/16 [Rx] Fluticasone/Vilanterol [Breo Ellipta 100-25 Mcg INH] 1 each IH DAILY #1 blst.w.dev 12/28/16 [Rx] Nystatin [Nystatin Suspension] 100,000 units PO QID #120 ml 12/31/16 [Rx] Subcutaneous Insulin Pump [T:Slim] 1 each SQ AD 01/15/17 [History] Atorvastatin [Lipitor] 40 mg PO HS 01/18/17 [History] Ipratropium/Albuterol Neb [Duoneb] 3 ml IH [id number] PRN #30 inhsol 11/07/17 [Rx] 3 Allergy/AdvReac Type Severity Reaction Status Date / Time metformin Allergy Hives Verified 12/19/16 10:37 pioglitazone [From Actos] Allergy Hives Verified 12/19/16 10:37 trazodone Allergy Hives Verified 12/19/16 10:37 All Systems PM: A 10-system review of systems was performed and is negative for pertinent findings except as documented above in the HPI. - Constitutional Vitals: Temp Pulse Resp BP Pulse Ox 97.5 F L 80 17 107/66 97 02/15/17 13:46 02/15/17 16:17 02/15/17 14:41 02/15/17 16:17 02/15/17 14:41 Internal Med - H&P Results - Labs CBC & Chem 7: 02/15/17 10:26 02/15/17 10:26 Labs: Cardiac Enzymes 02/15/17 Range/Units 15:39 Troponin I 0.03 (0-0.03) ng/mL - Attending Attestation I examined this patient and my medical decision-making was reviewed with the Resident Physician/ONLINE COMMUNICATIONS SPECIALIST. I agree with the documented findings, disposition and treatment plan as described except to the extent set forth below. I have examined this patient. Chart reviewed. 61-year-old male admitted with the exacerbation of CHF. Likely reason for exacerbation is infective etiology. Patient has wound on his lower extremity. We will cover with antibiotics. We will give intravenous Lasix 20 mg twice a day. Monitor closely electrolytes <Néstor Enciso - Last Filed: 02/15/17 18:01> Date of Encounter: 02/15/17 Time of Encounter: 13:25 Assessment and Plan (1) Acute on chronic systolic (congestive) heart failure Current visit: Yes Status: Acute General chronic exacerbation of CHF. The patient had multiple admissions for congestive heart failure throughout the last 3 months. Echocardiogram in 2016 shows systolic dysfunction with an ejection fraction of 25% and global hypokinesis. Troponin elevated at 0.04 likely due to demand ischemia Hold torsemide; and Lasix 40 mg IV push twice a day Fluid restriction with 1.5 L, strict I's and O's, daily weights Continuous telemetry, continuous O2 monitoring, (2) Chronic venous hypertension w/ulcer and inflammation involv both sides Current visit: Yes Status: Chronic Long-standing history of peripheral vascular disease. Chronic nonhealing moist wound ulcer on dorsal left foot, Consult to wound management for further recommendations, wound cultures now emperic ATB coverage with unasyn 1.5g Q6hrs IVPB, patient is a diabetic risk for complicated infection; awaiting culture results (3) Hypothyroidism Current visit: Yes Status: Acute Continue home dose of Synthroid. Qualifiers: Hypothyroidism type: unspecified Qualified Code(s): E03.9 - Hypothyroidism , unspecified (4) Lumbar spondylosis Current visit: Yes Status: Chronic History of lumbar spondylosis. Increasing back pain over the last 5 days. Primary care provider recently decreased all narcotic dose from 4 times a day to twice a day. 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 Continue Brio, albuterol and DuoNeb's Qualifiers: COPD type: unspecified COPD Qualified Code(s): J44.9 - Chronic obstructive pulmonary disease, unspecified (6) Atrial fibrillation Current visit: Yes Status: Chronic Stable and rate controlled. Continue home dose of amiodarone and Coumadin with pharmacy to dose check PT/INR per protocol Qualifiers: Atrial fibrillation type: chronic Qualified Code(s): I48.2 - Chronic atrial fibrillation (7) CAD (coronary artery disease) Current visit: Yes Status: Chronic Continue aspirin, Lipitor and HENRIQUE inhibitor Qualifiers: Coronary Disease-Associated Artery/Lesion type: unspecified vessel or lesion type [place] vs. transplanted heart: [place] heart Associated angina: without angina Qualified Code(s): I25.10 - Atherosclerotic heart disease of [place] coronary artery without angina pectoris (8) DM (diabetes mellitus) Current visit: Yes Status: Chronic Continue home insulin pump infusion, implement hypoglycemic rescue protocol when necessary Qualifiers: Diabetes mellitus type: type 2 Diabetes mellitus complication status: with unspecified complications Diabetes mellitus technician terminal and repeater insulin use: with mcfp use Qualified Code(s): E11.8 - Type 2 diabetes mellitus with unspecified complications (9) Obesity, Class III, BMI 40-49.9 (morbid obesity) Current visit: Yes Status: Chronic Discussed lifestyle modifications (10) Tobacco abuse Current visit: Yes Status: Chronic Preventative cessation counseling. Patient reports he is now only smoking 5 cigarettes per day. Nicotine patch 14 mg daily (11) CKD (chronic kidney disease) Current visit: Yes Status: Chronic Chronic security stage III, creatinine currently stable at 1.19, recheck metabolic panel in the morning. Qualifiers: Chronic kidney disease stage: stage 3 (moderate) Qualified Code(s): N18.3 - Chronic kidney disease, stage 3 (moderate) (12) DVT prophylaxis Current visit: Yes Status: Acute Continue Coumadin Internal Medicine - H&P: HPI Chief complaint: CHF exacerbation, Lt foot ulcer, back pain Admitted From: Home Plans for Post Hospital Care: Home History of present illness: Mr. Lance is a 61 year old male with a PMH of COPD, CHF, Afib, cardiomyopathy, CAD, DM, HLD, angioplasty with stents, Pacer AICD, CABG. [facility] today with increasing orthopnea, cough productive of thin foamy sputum, SOB and BLE swelling x5 days. Has chronic CHF resulting in multiple admission in the last three months, Most recent EF in 02/16 25%.Denies any fever, chills, CP, palpitations, tachycardia, or sick contacts. CXR reveals cardiomegally and vascular congestion. Past Med Surg Social Fam HX - Past Medical History Medical history: atrial fibrillation, cardiomyopathy, CHF, COPD, coronary artery disease, diabetes, hyperlipidemia, hypertension, other Psychiatric history: no psych history - Past Surgical History Surgical History: angioplasty/stent, coronary bypass (CABG), pacemaker/AICD - Social History Smoking Status: Current every day smoker Smokeless Tobacco Status: No Alcohol use: none Drug use: none - Family History Mother Living Status: Father Living Status: Hx Family Cardiac Disorders: Yes (CHF, multiple heart attacks) All Systems PM: A 10-system review of systems was performed and is negative for pertinent findings except as documented above in the HPI. - Constitutional Constitutional: fatigue, weight gain, no chills, no fever(s) - Cardiovascular Cardiovascular ROS IM: dyspnea, dyspnea on exertion, edema, orthopnea, no chest pain, no irregular heart rhythm, no lightheadedness, no palpitations, no paroxysmal nocturnal dyspnea, no syncope - Respiratory Respiratory: as per HPI, cough, dyspnea, dyspnea on exertion, no hemoptysis, no wheezing, no stridor, no pain on inspiration, no chest congestion, no excessive phlegm production, no pain with cough - Gastrointestinal Gastrointestinal: no abdominal pain, no diarrhea, no hematemesis, no hematochezia, no melena, no nausea, no vomiting - Genitourinary Genitourinary ROS male: no dysuria, no flank pain - Musculoskeletal Musculoskeletal ROS IM: back pain (chronic, worse with cough and SOB), no deformity, no limited range of motion, no muscle weakness, no numbness, no tingling - Integumentary Integumentary IM: no rash, no unusual bruising - Neurological Neurological ROS: no confusion, no convulsions, no focal weakness, no numbness, no tingling, no tremor(s) - Constitutional Vitals: Temp Pulse Resp BP Pulse Ox 97.5 F L 91 14 106/75 98 02/15/17 10:06 02/15/17 12:18 02/15/17 12:18 02/15/17 12:18 02/15/17 12:18 General appearance: Present: mild distress, A&O X 3, obese, answers questions appropriately - Head Head exam: Present: atraumatic, normocephalic - Eye Eye exam: Present: PERRL, conjuntiva pink, sclera anicteric Pupils: Present: PERRL - Neck Neck exam general surgery: Present: supple, trachea midline. Absent: lymphadenopathy, tenderness, thyromegaly - Respiratory Respiratory exam: Present: accessory muscle use, decreased breath sounds, rales , respiratory distress. Absent: chest wall tenderness, rhonchi, stridor, tachypnea Additional comments: fine rales BL posterior bases - Cardiovascular Cardiovascular exam: Present: RRR, +S1, +S2 - GI/Abdominal GI/Abdominal exam: Present: normal bowel sounds, soft, no peritoneal signs. Absent: distended, tenderness - Extremities Exam Extremities exam: Present: pedal edema. Absent: calf tenderness, normal capillary refill, mottling, tenderness - Expanded Lower Extremities Exam Lower Leg exam: Present: swelling (BLE) Ankle exam: Present: swelling (BLE) Foot/Toe exam: Present: swelling (BLE) 1 - Lt foot open chronic nonhealing wound without drainage - Skin Skin exam: Absent: dry, intact Additional comments: moist nonhealing chronic skin ulcer on Lt foot wound Internal Med - H&P Results - Labs CBC & Chem 7: 02/15/17 10:26 02/15/17 10:26 - EKG Data -: EKG Interpreted by Myself - EKG Data Prior EKG available for review: yes When compared to previous EKG: there is no significant change EKG comments: 02/15/17 13:43 [paced rhythm - Diagnostic Studies Chest x-ray Status: image reviewed by me Additional comments: CARDIOMEGALY WITH VASCULAR CONGESTION
[2017-02-15] MEDS ORDERED: D5% in Water 1,000 ML IVC PRN (13:51)
[2017-02-15] MEDS ORDERED: *HR* Dextrose 50 % in Water (Syg) 50 ML SYRINGE IVP PRN (13:51)
[2017-02-15] MEDS ORDERED: Dextrose Gel 15 GM PO PRN ×2 (13:51)
[2017-02-15 13:54] LABS: INR 4.3
[2017-02-15 14:05] LABS: Prothrombin Time 47.5 Seconds (9.4-12.1)
[2017-02-15] MEDS: Nicotine 14 MG PATCH.TD24 TD SCH (16:09)
[2017-02-15] MEDS ORDERED: Nystatin SUSP 5 ML UD.LIQ PO SCH (17:00)
[2017-02-15] MEDS ORDERED: Warfarin perPT PO PRN (18:00)
[2017-02-15] MEDS: Furosemide 40 MG/4 ML VIAL IVP SCH (18:08)
[2017-02-15] MEDS: Insulin LISPRO 300 UNITS/3 ML VIAL SQ SCH ×2 (18:08→21:37)
[2017-02-15] MEDS: *HR* Amiodarone 200 MG TABLET PO SCH (18:08)
--- NOTE | 2017-02-15 18:18 | Electrocardiograph Report ---
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
[2017-02-15] MEDS: Ampicillin/Sulbactam 1,500 MG in 0.9 % Sodium Chloride 150 ML IVPB SCH (19:18)
[2017-02-15] MEDS: Metoprolol XL (24 HR) Succ 50 MG TAB.ER.24H PO SCH (21:38)
[2017-02-15] MEDS: *HR* HYDROmorphone (PF) 1 MG/ML SYRINGE IVP PRN (21:50)
[2017-02-16] MEDS: Ampicillin/Sulbactam 1,500 MG in 0.9 % Sodium Chloride 150 ML IVPB SCH ×4 (01:35→17:18)
[2017-02-16] MEDS: *HR* HYDROmorphone (PF) 1 MG/ML SYRINGE IVP PRN ×4 (04:45→22:55)
[2017-02-16 05:43] LABS: Basophils # 0.1 K/mcL (0.0-0.2); Basophils % 0.5 %; Eosinophils # 0.5 K/mcL (0.0-0.6); Eosinophils % 4.7 %; Hematocrit 40.6 % (37.5-50.1); Hemoglobin 12.9 g/dL (12.9-16.9); Immature Granulocytes % 0.7 % (0-4); Lymphocytes # 1.2 K/mcL (0.6-4.6); Lymphocytes % 12.2 %; Mean Corpuscular HGB Conc 31.8 g/dL (31.6-35.5); Mean Corpuscular Volume 94.4 fL (83.0-100.0); Mean Platelet Volume 10.2 fL (9.4-12.4); Monocytes % 10.6 %; Neutrophils # 6.8 K/mcL (1.6-8.9); Platelet Count 298 K/mcL (140-400); Red Cell Distribution Width 16.4 % (11.5-14.5); Segmented Neutrophils % 71.3 %
[2017-02-16 06:05] LABS: Alanine Aminotransferase 11 Units/L (0-55); Albumin 2.9 g/dL (3.5-5.0); Albumin/Globulin Ratio 0.8 (1.1-2.2); Alkaline Phosphatase 120 Units/L (38-126); Aspartate Amino Transferase 15 Units/L (5-34); BUN/Creatinine Ratio 13 (6-26); Bilirubin,Total 1.7 mg/dL (0.2-1.2); Blood Urea Nitrogen 16 mg/dL (8-26); Carbon Dioxide 29 mEq/L (19-29); Chloride 96 mEq/L (98-109); Globulin 3.8 g/dL (2.4-3.5); Glucose 175 mg/dL (70-99); Osmolality,Calculated 285 (280-300); Potassium 3.5 mEq/L (3.5-4.5); Sodium 135 mEq/L (136-145); Total Protein 6.7 g/dL (6.0-8.3); eGFR For African Americans > 60 (> 60); eGFR For Non-African Americans > 60 (> 60)
[2017-02-16 06:10] LABS: Prothrombin Time 48.4 Seconds (9.4-12.1)
[2017-02-16 06:11] LABS: INR 4.4
[2017-02-16] MEDS: Fluticasone Propionate Nasal 50 MCG/SPRAY BOTTLE NS SCH (06:49)
[2017-02-16] MEDS: Nystatin Cream 15 GM TUBE TP SCH (06:49)
[2017-02-16] MEDS ORDERED: Metoprolol XL (24 HR) Succ 50 MG TAB.ER.24H PO SCH (09:00)
[2017-02-16] MEDS ORDERED: *HR* Amiodarone 200 MG TABLET PO SCH (09:00)
[2017-02-16] MEDS: Nicotine 14 MG PATCH.TD24 TD SCH (09:12)
[2017-02-16] MEDS: Cholecalciferol (D-3) 1,000 UNIT TABLET PO SCH (09:12)
[2017-02-16] MEDS: *HR* Amiodarone 200 MG TABLET PO SCH (09:12)
[2017-02-16] MEDS: Aspirin 81 MG TAB.CHEW PO SCH (09:12)
[2017-02-16] MEDS: Furosemide 40 MG/4 ML VIAL IVP SCH ×2 (09:12→17:18)
[2017-02-16] MEDS: Insulin LISPRO 300 UNITS/3 ML VIAL SQ SCH ×4 (09:13→21:43)
[2017-02-16] MEDS ORDERED: *HR* HYDROmorphone (PF) 1 MG/ML SYRINGE IVP PRN (09:45)
--- NOTE | 2017-02-16 11:03 | Internal Med Progress Note ---
Date of Encounter: 02/16/17 Time of Encounter: 11:01 - Assessment and plan (1) Acute on chronic systolic (congestive) heart failure Current Visit: Yes Status: Suspected Assessment and plan: Patient was admitted with shortness of breath, however reports that his main complaint is acute on chronic back pain. Does not seem to be in acute exacerbation of CHF. Has baseline poor functional status. May benefit from rehabilitation placement or at least home health services at discharge. Continue IV Lasix, start fluid restriction and urine output monitoring. Continue beta gemini and HENRIQUE inhibitor. Echo from last week shows EF 25%, global LV systolic dysfunction, biventricular and biatrial dilation; patient has 6 admissions in the last 6 weeks with similar complaints; (2) Lumbar spondylosis Current Visit: Yes Status: Acute Assessment and plan: acute on chronic pain; followed with Pain management in the past and stopped as he does not want epidural injections per him. His PCP recently cut back on his narcotic meds due to a new Law. Will get CT L-spine and consult Spine surgery if indicated; continue pain control with IV Dilaudid and PO Percocet; PT/OT evaluation. Qualifiers: Spinal osteoarthritis complication: without myelopathy or radiculopathy Qualified Code(s): M47.816 - Spondylosis without myelopathy or radiculopathy, lumbar region (3) BPH (benign prostatic hyperplasia) Current Visit: Yes Status: Chronic Qualifiers: Lower urinary tract symptom presence: unspecified whether lower urinary tract symptoms present Qualified Code(s): N40.0 - Benign prostatic hyperplasia without lower urinary tract symptoms (4) COPD (chronic obstructive pulmonary disease) Current Visit: Yes Status: Chronic Assessment and plan: not in acute exacerbation; continue PRN bronchodilators, home meds, supplemental O2; he is on home O2; Qualifiers: COPD type: unspecified COPD Qualified Code(s): J44.9 - Chronic obstructive pulmonary disease, unspecified (5) Atrial fibrillation Current Visit: Yes Status: Chronic Assessment and plan: currently rate-controlled; on anticoagulation with Coumadin; INR is 4.4, currently on hold; Qualifiers: Atrial fibrillation type: chronic Qualified Code(s): I48.2 - Chronic atrial fibrillation (6) Hypothyroidism Current Visit: Yes Status: Chronic Qualifiers: Hypothyroidism type: unspecified Qualified Code(s): E03.9 - Hypothyroidism , unspecified (7) CAD (coronary artery disease) Current Visit: Yes Status: Chronic Qualifiers: Coronary Disease-Associated Artery/Lesion type: bypass graft [place] vs. transplanted heart: [place] heart Associated angina: without angina Qualified Code(s): I25.810 - Atherosclerosis of coronary artery bypass graft(s) without angina pectoris (8) DM (diabetes mellitus) Current Visit: Yes Status: Chronic Assessment and plan: uncontrolled DM. On insulin infusion pump at home, currently held. Start basal bolus insulin regimen, Accucheck blood glucose monitoring; diabetic diet; Qualifiers: Diabetes mellitus type: type 2 Diabetes mellitus complication status: with unspecified complications Diabetes mellitus retirement insulin use: with retirement use Qualified Code(s): E11.8 - Type 2 diabetes mellitus with unspecified complications (9) CKD (chronic kidney disease) Current Visit: Yes Status: Chronic Qualifiers: Chronic kidney disease stage: stage 3 (moderate) Qualified Code(s): N18.3 - Chronic kidney disease, stage 3 (moderate) (10) Obesity, Class III, BMI 40-49.9 (morbid obesity) Current Visit: Yes Status: Chronic (11) Tobacco abuse Current Visit: Yes Status: Chronic (12) Chronic venous hypertension w/ulcer and inflammation involv both sides Current Visit: Yes Status: Chronic Assessment and plan: chronic; follows with Podiatry as outpatient; wound care consult, less likely infected; will reassess tomorrow; continue IV Unasyn for now; - Subjective Interval history: Reports severe back pain, which has been chronic, worse now, recently cut down on his pain meds as his PCP was only allowed to prescribe a certain number of pain pills according to a new law; Reports some dyspnea, which may not be worse than his baseline; no chest pain; does have chronic leg weeping wounds that his helps dress twice daily; follows with Podiatry; has home O2; - Constitutional Vitals: Temp Pulse Resp BP Pulse Ox 97.4 F L 80 18 108/60 94 02/16/17 07:50 02/16/17 09:30 02/16/17 09:30 02/16/17 09:30 02/16/17 09:30 General appearance: Present: A&O X 3, morbidly obese, answers questions appropriately - Respiratory Respiratory exam: Present: CTAB. Absent: accessory muscle use, rales, rhonchi, wheezes - Cardiovascular Cardiovascular exam: Present: RRR, +S1, +S2. Absent: diastolic murmur, gallop, rubs, systolic murmur - GI/Abdominal GI/Abdominal exam: Present: normal bowel sounds, soft (obese), no peritoneal signs. Absent: distended, tenderness - Extremities Exam Extremities exam: Present: pedal edema (B/L pitting edema, erythema), warm, radial pulses palpable and symmetrical. Absent: calf tenderness, cyanotic - Neurological Exam Neurological exam: Present: CN II-XII intact, oriented X3, no focal deficits. Absent: pronater drift, facial droop, speech deficit Internal Medicine: Result - Labs CBC & Chem 7: 02/16/17 05:23 02/16/17 05:23 Labs: Short CBC 02/16/17 Range/Units 05:23 WBC 9.5 (4.3-11.1) K/mcL Hgb 12.9 (12.9-16.9) g/dL Hct 40.6 (37.5-50.1) % Plt Count 298 (140-400) K/mcL Neutrophils # 6.8 (1.6-8.9) K/mcL BMP 02/16/17 05:23 Sodium 135 L Potassium 3.5 Chloride 96 L Carbon Dioxide 29 BUN 16 Creatinine 1.20 Glucose 175 H Calcium 9.0 Cardiac Enzymes 02/15/17 02/15/17 Range/Units 15:39 21:14 Troponin I 0.03 0.04 H* (0-0.03) ng/mL Liver Function 02/16/17 Range/Units 05:23 Total Bilirubin 1.7 H (0.2-1.2) mg/dL AST 15 (5-34) Units/L ALT 11 (0-55) Units/L Alkaline Phosphatase 120 (38-126) Units/L Albumin 2.9 L (3.5-5.0) g/dL - ABG Interpretation ABG results: PT/INR, D-dimer PT 48.4 Seconds (9.4-12.1) H* 02/16/17 05:23 Consult Discharge Plan - Plan Referrals: Lilo Beltran MD [Primary Care Provider] - 03/20/17 10:30 am
[2017-02-16] MEDS: Ipratropium/Albuterol Neb 3 ML IH PRN (11:23)
[2017-02-16] MEDS: BREO ELLIPTA IH SCH (11:23)
[2017-02-16] MEDS: Nicotine 21 MG PATCH.TD24 TD SCH (12:15)
[2017-02-16] MEDS: Insulin DETEMIR 100 UNIT/ML X5UNITS SQ SCH ×2 (12:18→21:42)
[2017-02-16] MEDS: Metoprolol XL (24 HR) Succ 50 MG TAB.ER.24H PO SCH (21:41)
[2017-02-16] MEDS: Sennosides/Docusate Sodium TABLET PO SCH (21:42)
[2017-02-17] MEDS: Ampicillin/Sulbactam 1,500 MG in 0.9 % Sodium Chloride 150 ML IVPB SCH ×4 (01:17→18:58)
[2017-02-17] MEDS: *HR* OxyCODONE/APAP 10/325 TABLET PO PRN ×2 (01:20→13:23)
[2017-02-17] MEDS: Nystatin Cream 15 GM TUBE TP SCH ×2 (01:24→08:56)
[2017-02-17 05:51] LABS: Basophils % 0.4 %; Eosinophils # 0.4 K/mcL (0.0-0.6); Eosinophils % 3.4 %; Hematocrit 40.1 % (37.5-50.1); Immature Granulocytes % 0.7 % (0-4); Lymphocytes # 1.1 K/mcL (0.6-4.6); Lymphocytes % 9.5 %; Mean Corpuscular HGB Conc 32.4 g/dL (31.6-35.5); Mean Corpuscular Hemoglobin 30.2 pg (28.0-33.3); Mean Corpuscular Volume 93.3 fL (83.0-100.0); Mean Platelet Volume 9.9 fL (9.4-12.4); Monocytes # 0.9 K/mcL (0.0-1.3); Monocytes % 8.2 %; Neutrophils # 8.6 K/mcL (1.6-8.9); Platelet Count 303 K/mcL (140-400); Red Cell Distribution Width 16.3 % (11.5-14.5); Segmented Neutrophils % 77.8 %
[2017-02-17] MEDS: *HR* HYDROmorphone (PF) 1 MG/ML SYRINGE IVP PRN ×2 (05:53→20:17)
[2017-02-17 05:58] LABS: Prothrombin Time 51.4 Seconds (9.4-12.1)
[2017-02-17 05:59] LABS: INR 4.6
[2017-02-17 06:24] LABS: BUN/Creatinine Ratio 16 (6-26); Blood Urea Nitrogen 17 mg/dL (8-26); Calcium 8.7 mg/dL (8.6-10.8); Carbon Dioxide 28 mEq/L (19-29); Chloride 96 mEq/L (98-109); Glucose 166 mg/dL (70-99); Osmolality,Calculated 281 (280-300); Potassium 3.5 mEq/L (3.5-4.5); Sodium 133 mEq/L (136-145); eGFR For African Americans > 60 (> 60); eGFR For Non-African Americans > 60 (> 60)
[2017-02-17] MEDS: BREO ELLIPTA IH SCH (07:38)
[2017-02-17] MEDS: Sennosides/Docusate Sodium TABLET PO SCH ×2 (08:45→20:12)
[2017-02-17] MEDS: *HR* Amiodarone 200 MG TABLET PO SCH (08:45)
[2017-02-17] MEDS: Cholecalciferol (D-3) 1,000 UNIT TABLET PO SCH (08:45)
[2017-02-17] MEDS: Aspirin 81 MG TAB.CHEW PO SCH (08:46)
[2017-02-17] MEDS: Nicotine 21 MG PATCH.TD24 TD SCH (08:46)
[2017-02-17] MEDS: Fluticasone Propionate Nasal 50 MCG/SPRAY BOTTLE NS SCH (08:55)
[2017-02-17] MEDS: Insulin LISPRO 300 UNITS/3 ML VIAL SQ SCH ×4 (08:55→21:15)
[2017-02-17] MEDS: Furosemide 40 MG/4 ML VIAL IVP SCH (08:55)
[2017-02-17] MEDS: Insulin DETEMIR 100 UNIT/ML X5UNITS SQ SCH ×2 (08:57→20:12)
--- NOTE | 2017-02-17 12:50 | Internal Med Progress Note ---
Date of Encounter: 02/17/17 Time of Encounter: 12:48 - Assessment and plan (1) Acute on chronic systolic (congestive) heart failure Current Visit: Yes Status: Suspected Assessment and plan: Patient was admitted with shortness of breath, however reports that his main complaint is acute on chronic back pain. Does not seem to be in acute exacerbation of CHF. Has baseline poor functional status. May benefit from rehabilitation placement or at least home health services at discharge. We will change diuretics to home dose of oral Demadex as patient reports lightheadedness and noted to be hypotensive. Continue fluid restriction and urine output monitoring. Continue beta gemini and HENRIQUE inhibitor. Echo from Jan 2017 shows EF 25%, global LV systolic dysfunction, biventricular and biatrial dilation; (2) Lumbar spondylosis Current Visit: Yes Status: Acute Assessment and plan: acute on chronic pain; followed with Pain management in the past and stopped as he does not want epidural injections per him. His PCP recently cut back on his narcotic meds due to a new Law. CT lumbar spine shows L2 superior endplate fracture, mild to moderate central canal stenosis at L2/3, L4/5. Also shows 5 cm abdominal aortic aneurysm, will need vascular surgery follow-up. Case discussed with spine surgery, pending full consult. continue pain control with IV Dilaudid and PO Percocet; PT/OT evaluation. Qualifiers: Spinal osteoarthritis complication: without myelopathy or radiculopathy Qualified Code(s): M47.816 - Spondylosis without myelopathy or radiculopathy, lumbar region (3) BPH (benign prostatic hyperplasia) Current Visit: Yes Status: Chronic Qualifiers: Lower urinary tract symptom presence: unspecified whether lower urinary tract symptoms present Qualified Code(s): N40.0 - Benign prostatic hyperplasia without lower urinary tract symptoms (4) COPD (chronic obstructive pulmonary disease) Current Visit: Yes Status: Chronic Assessment and plan: not in acute exacerbation; continue PRN bronchodilators, home meds, supplemental O2; he is on home O2; Qualifiers: COPD type: unspecified COPD Qualified Code(s): J44.9 - Chronic obstructive pulmonary disease, unspecified (5) Atrial fibrillation Current Visit: Yes Status: Chronic Assessment and plan: currently rate-controlled; on anticoagulation with Coumadin; INR is 4.6, currently on hold; Qualifiers: Atrial fibrillation type: chronic Qualified Code(s): I48.2 - Chronic atrial fibrillation (6) Hypothyroidism Current Visit: Yes Status: Chronic Assessment and plan: resume Levothyroxine; Qualifiers: Hypothyroidism type: unspecified Qualified Code(s): E03.9 - Hypothyroidism , unspecified (7) CAD (coronary artery disease) Current Visit: Yes Status: Chronic Qualifiers: Coronary Disease-Associated Artery/Lesion type: bypass graft [place] vs. transplanted heart: [place] heart Associated angina: without angina Qualified Code(s): I25.810 - Atherosclerosis of coronary artery bypass graft(s) without angina pectoris (8) DM (diabetes mellitus) Current Visit: Yes Status: Chronic Assessment and plan: On insulin infusion pump at home, currently held. Continue basal bolus insulin regimen, Accucheck blood glucose monitoring; blood sugars noted to be well controlled. 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 insulin use: with [employer] use Qualified Code(s): E11.8 - Type 2 diabetes mellitus with unspecified complications (9) CKD (chronic kidney disease) Current Visit: Yes Status: Chronic Qualifiers: Chronic kidney disease stage: stage 3 (moderate) Qualified Code(s): N18.3 - Chronic kidney disease, stage 3 (moderate) (10) Obesity, Class III, BMI 40-49.9 (morbid obesity) Current Visit: Yes Status: Chronic (11) Tobacco abuse Current Visit: Yes Status: Chronic (12) Chronic venous hypertension w/ulcer and inflammation involv both sides Current Visit: Yes Status: Chronic Assessment and plan: chronic; follows with Podiatry as outpatient; wound care consult noted, to continue previous wound care recommendations per podiatry.preliminary wound culture grows gram-negative rods. could be colonizaion; f/up final cultures. Previous wound culture grew Stenotrophomonas, Pseudomonas, Klebsiella; continue IV Unasyn for now; (13) Compression fracture Current Visit: Yes Status: Acute - Subjective Interval history: Appears better today; improving but persistent back pain; low BP readings intermittently delaying pain meds; no fever/chills, chest pain, shortness of breath; - Constitutional Vitals: Temp Pulse Resp BP Pulse Ox 98.5 F 82 18 93/49 96 02/17/17 07:00 02/17/17 07:00 02/17/17 07:00 02/17/17 11:00 02/17/17 07:00 General appearance: Present: A&O X 3, morbidly obese, answers questions appropriately - Respiratory Respiratory exam: Present: CTAB. Absent: accessory muscle use, rales, rhonchi, wheezes - Cardiovascular Cardiovascular exam: Present: RRR, +S1, +S2. Absent: diastolic murmur, gallop, rubs, systolic murmur - GI/Abdominal GI/Abdominal exam: Present: normal bowel sounds, soft (obese), no peritoneal signs. Absent: distended, tenderness - Extremities Exam Extremities exam: Present: full ROM, pedal edema, warm, radial pulses palpable and symmetrical. Absent: calf tenderness, cyanotic - Neurological Exam Neurological exam: Present: CN II-XII intact, oriented X3, no focal deficits. Absent: pronater drift, facial droop, speech deficit - Skin Skin exam: Present: dry, intact Additional comments: B/L leg ulcers, in dressings stained wit yellowish dry exudate Internal Medicine: Result - Labs CBC & Chem 7: 02/17/17 05:34 02/17/17 05:34 Labs: Short CBC 02/17/17 Range/Units 05:34 WBC 11.1 (4.3-11.1) K/mcL Hgb 13.0 (12.9-16.9) g/dL Hct 40.1 (37.5-50.1) % Plt Count 303 (140-400) K/mcL Neutrophils # 8.6 (1.6-8.9) K/mcL BMP 02/17/17 05:34 Sodium 133 L Potassium 3.5 Chloride 96 L Carbon Dioxide 28 BUN 17 Creatinine 1.08 Glucose 166 H Calcium 8.7 - ABG Interpretation ABG results: PT/INR, D-dimer PT 51.4 Seconds (9.4-12.1) H* 02/17/17 05:34 - Impressions Impressions Lumbar Spine CT 02/16/17 17:25 IMPRESSION: There is a mild compression fracture involving the superior endplate of L2 that is new from 09/28/2016. MRI to assess for bone edema is recommended. Mild to moderate central canal stenosis suspected at L2-L3 and L4-L5. Study is limited by beam hardening artifact. Stable 5 cm infrarenal abdominal aortic aneurysm. Managing Abdominal Aortic Aneurysms 2.6-2.9 cm: Every 5 years* 3.0-3.4 cm: Every 3 years. 3.5-3.9 cm: Every 1 year. 4.0-4.4 cm: Every 1 year. Recommend vascular consultation. 4.5-5.4 cm: Every 6 months. Recommend vascular consultation. Greater than or equal to 5.5 cm: Referral to vascular surgeon. *For abdominal aortas with maximum diameter of 2.6-2.9 cm meeting criteria for AAA (>50% of proximal normal segment). Reference: J Vasc Surg. 2009 Dec;50(4 Suppl):S2-49 D/ / Lonnie Squires MD / Lonnie Squires MD Interpreting Provider: Lonnie Squires MD Consult Discharge Plan - Plan Referrals: Lilo Beltran MD [Primary Care Provider] - 03/20/17 10:30 am
[2017-02-17] MEDS: Metoprolol XL (24 HR) Succ 50 MG TAB.ER.24H PO SCH (20:12)
[2017-02-17] MEDS: Torsemide 20 MG TABLET PO SCH (20:17)
[2017-02-18] MEDS: Ampicillin/Sulbactam 1,500 MG in 0.9 % Sodium Chloride 150 ML IVPB SCH ×3 (01:30→11:28)
[2017-02-18] MEDS: Nystatin Cream 15 GM TUBE TP SCH ×3 (01:30→20:24)
[2017-02-18] MEDS: *HR* HYDROmorphone (PF) 1 MG/ML SYRINGE IVP PRN ×2 (06:00→19:25)
[2017-02-18 07:01] LABS: INR 3.8; Prothrombin Time 42.1 Seconds (9.4-12.1)
[2017-02-18] MEDS: BREO ELLIPTA IH SCH (08:07)
[2017-02-18] MEDS: Torsemide 20 MG TABLET PO SCH ×2 (09:44→19:39)
[2017-02-18] MEDS: *HR* Amiodarone 200 MG TABLET PO SCH (09:45)
[2017-02-18] MEDS: *HR* OxyCODONE/APAP 10/325 TABLET PO PRN (09:45)
[2017-02-18] MEDS: Insulin DETEMIR 100 UNIT/ML X5UNITS SQ SCH ×2 (09:45→19:34)
[2017-02-18] MEDS: Aspirin 81 MG TAB.CHEW PO SCH (09:45)
[2017-02-18] MEDS: Fluticasone Propionate Nasal 50 MCG/SPRAY BOTTLE NS SCH (09:46)
[2017-02-18] MEDS: Nicotine 21 MG PATCH.TD24 TD SCH (09:46)
[2017-02-18] MEDS: Insulin LISPRO 300 UNITS/3 ML VIAL SQ SCH ×4 (09:46→21:58)
[2017-02-18] MEDS: Sennosides/Docusate Sodium TABLET PO SCH ×2 (09:47→19:34)
[2017-02-18] MEDS: Cholecalciferol (D-3) 1,000 UNIT TABLET PO SCH (09:47)
--- NOTE | 2017-02-18 11:25 | Internal Med Progress Note ---
Date of Encounter: 02/18/17 Time of Encounter: 11:23 - Assessment and plan (1) Acute on chronic systolic (congestive) heart failure Status: Ruled-out Assessment and plan: Patient was admitted with shortness of breath, however reports that his main complaint is acute on chronic back pain. Does not seem to be in acute exacerbation of CHF. Has baseline poor functional status. May benefit from rehabilitation placement or at least home health services at discharge. Continue oral Demadex, fluid restriction and urine output monitoring. Continue beta gemini and HENRIQUE inhibitor- patient has not been receiving these due to low BP. Echo from Jan 2017 shows EF 25%, global LV systolic dysfunction, biventricular and biatrial dilation; (2) Lumbar spondylosis Status: Chronic Assessment and plan: acute on chronic pain; followed with Pain management in the past and stopped as he does not want epidural injections per him. His PCP recently cut back on his narcotic meds due to a new Law. CT lumbar spine shows L2 superior endplate fracture, mild to moderate central canal stenosis at L2/3, L4/5. Also shows 5 cm abdominal aortic aneurysm, will need vascular surgery follow-up. Case discussed with spine surgery, pending full consult. continue pain control with IV Dilaudid and PO Percocet; PT/OT evaluation pending. Qualifiers: Spinal osteoarthritis complication: without myelopathy or radiculopathy Qualified Code(s): M47.816 - Spondylosis without myelopathy or radiculopathy, lumbar region (3) BPH (benign prostatic hyperplasia) Status: Chronic Qualifiers: Lower urinary tract symptom presence: unspecified whether lower urinary tract symptoms present Qualified Code(s): N40.0 - Benign prostatic hyperplasia without lower urinary tract symptoms (4) COPD (chronic obstructive pulmonary disease) Status: Chronic Assessment and plan: not in acute exacerbation; continue PRN bronchodilators, home meds, supplemental O2; he is on home O2; Qualifiers: COPD type: unspecified COPD Qualified Code(s): J44.9 - Chronic obstructive pulmonary disease, unspecified (5) Atrial fibrillation Status: Chronic Assessment and plan: currently rate-controlled; on anticoagulation with Coumadin; INR is 3.8, currently on hold; Qualifiers: Atrial fibrillation type: chronic Qualified Code(s): I48.2 - Chronic atrial fibrillation (6) Hypothyroidism Status: Chronic Qualifiers: Hypothyroidism type: unspecified Qualified Code(s): E03.9 - Hypothyroidism , unspecified (7) CAD (coronary artery disease) Status: Chronic Qualifiers: Coronary Disease-Associated Artery/Lesion type: bypass graft [place] vs. transplanted heart: [place] heart Associated angina: without angina Qualified Code(s): I25.810 - Atherosclerosis of coronary artery bypass graft(s) without angina pectoris (8) DM (diabetes mellitus) Status: Chronic Assessment and plan: On insulin infusion pump at home, currently held. Continue basal bolus insulin regimen, Accucheck blood glucose monitoring; blood sugars noted to be well controlled. 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 Qualified Code(s): E11.8 - Type 2 diabetes mellitus with unspecified complications (9) CKD (chronic kidney disease) Status: Chronic Qualifiers: Chronic kidney disease stage: stage 3 (moderate) Qualified Code(s): N18.3 - Chronic kidney disease, stage 3 (moderate) (10) Obesity, Class III, BMI 40-49.9 (morbid obesity) Status: Chronic (11) Tobacco abuse Status: Chronic (12) Chronic venous hypertension w/ulcer and inflammation involv both sides Status: Chronic Assessment and plan: chronic; follows with Podiatry as outpatient; wound care consult noted, to continue previous wound care recommendations per podiatry.preliminary wound culture grows gram-negative rods. could be colonization; f/up final cultures. Previous wound culture grew Stenotrophomonas, Pseudomonas, Klebsiella, sensitive to Levaquin; will change antibiotics to Levaquin; (13) Compression fracture Status: Acute Assessment and plan: plan as above; - Subjective Interval history: Reports feeling lightheaded and thinks it may be because of laxatives, Nicotine patch; although he is on narcotic pain meds, he does not agree they may be the reason for lightheadedness and low BP! No chest pain, dyspnea, or any new complaints; - Constitutional Vitals: Temp Pulse Resp BP Pulse Ox 97.6 F 80 22 110/62 97 02/18/17 07:35 02/18/17 07:35 02/18/17 07:35 02/18/17 07:35 02/18/17 07:35 General appearance: Present: A&O X 3, morbidly obese, answers questions appropriately - Respiratory Respiratory exam: Present: CTAB. Absent: accessory muscle use, rales, rhonchi, wheezes - Cardiovascular Cardiovascular exam: Present: RRR, +S1, +S2. Absent: diastolic murmur, gallop, rubs, systolic murmur - GI/Abdominal GI/Abdominal exam: Present: normal bowel sounds, soft, no peritoneal signs. Absent: distended, tenderness - Extremities Exam Extremities exam: Present: full ROM, pedal edema, warm, radial pulses palpable and symmetrical. Absent: calf tenderness, cyanotic - Neurological Exam Neurological exam: Present: CN II-XII intact, oriented X3, no focal deficits. Absent: pronater drift, facial droop, speech deficit Internal Medicine: Result - Labs CBC & Chem 7: 02/17/17 05:34 02/17/17 05:34 - ABG Interpretation ABG results: PT/INR, D-dimer PT 42.1 Seconds (9.4-12.1) H 02/18/17 06:31 Consult Discharge Plan - Plan Instructions: Heart Failure (DC) Additional Instructions: F/up with Podiatry as scheduled F/up with in 3 months Referrals: Lilo Beltran MD [Primary Care Provider] - 03/20/17 10:30 am
[2017-02-18] MEDS ORDERED: Levofloxacin 500 MG/100 ML 500 MG/100 ML BAG IVPB SCH (16:00)
[2017-02-18] MEDS: Ipratropium/Albuterol Neb 3 ML IH PRN (16:31)
[2017-02-18] MEDS: Metoprolol XL (24 HR) Succ 50 MG TAB.ER.24H PO SCH (20:26)
[2017-02-19] MEDS: *HR* OxyCODONE/APAP 10/325 TABLET PO PRN (00:07)
[2017-02-19] MEDS ORDERED: *HR* HYDROcodone/Acet 10/325 mg TABLET PO PRN (00:11)
[2017-02-19 03:29] LABS: Prothrombin Time 33.6 Seconds (9.4-12.1)
[2017-02-19] MEDS: Aspirin 81 MG TAB.CHEW PO SCH (10:04)
[2017-02-19] MEDS: *HR* Amiodarone 200 MG TABLET PO SCH (10:04)
[2017-02-19] MEDS: Insulin LISPRO 300 UNITS/3 ML VIAL SQ SCH ×2 (10:05→12:24)
[2017-02-19] MEDS: Insulin DETEMIR 100 UNIT/ML X5UNITS SQ SCH (10:05)
[2017-02-19] MEDS: Nicotine 21 MG PATCH.TD24 TD SCH (10:05)
[2017-02-19] MEDS: Torsemide 20 MG TABLET PO SCH (10:05)
[2017-02-19] MEDS: Nystatin Cream 15 GM TUBE TP SCH (10:05)
[2017-02-19] MEDS: Fluticasone Propionate Nasal 50 MCG/SPRAY BOTTLE NS SCH (10:05)
[2017-02-19] MEDS: Cholecalciferol (D-3) 1,000 UNIT TABLET PO SCH (10:06)
[2017-02-19] MEDS: Sennosides/Docusate Sodium TABLET PO SCH (10:06)
[2017-02-19] MEDS: BREO ELLIPTA IH SCH (10:06)
--- NOTE | 2017-02-19 10:37 | Spinal Consult Note ---
Date of Encounter: 02/19/17 Time of Encounter: 10:34 Assessment and Plan (1) Vertebral compression fracture Current Visit: Yes Status: Chronic On exam he is moderately obese sitting in bed in mild distress secondary to back pain. Afebrile vital signs stable. He has compression garments on his distal lower extremities. He has evidence of onychomycotic changes in his pedal nails. He is grossly neurovascularly intact with regard to his bilateral lower extremities. He has some tenderness to palpation in the mid lumbar region. CT scan of the lumbar spine dated 02/16/2017 reveals multilevel degenerative changes. There is a somewhat osteopenic appearance of the vertebrae. There is an acute superior endplate fracture of L2. There is mild to moderate stenosis L2-L5. Impression: 1) Vertebral compression fracture L2 2) lumbar stenosis 3) history of spinal cord stimulator placement Plan: I had a long discussion with the patient regarding treatment options for vertebral fracture. This included analgesics and bracing, analgesics alone, and kyphoplasty. Due to his significant medical comorbidities he is not a good candidate for elective surgical procedure. The patient's declining brace wear. He is going to continue with analgesics medications and mobilize as tolerated. He is going to follow-up in 2-3 months in my office as an outpatient at which time we will get repeat radiographs to assess the healing of the fracture. The patient is amenable to the plan. Qualifiers: Encounter type: initial encounter Qualified Code(s): M48.50XA - Collapsed vertebra, not elsewhere classified, site unspecified, initial encounter for fracture History of Present Illness Chief complaint: Worsening back pain over several days. HPI: Mr. Lance is a 61 year old male Who has a history of chronic low back pain for over 10 years. He has had a previous spinal cord stimulator placed by Dr. Veliz. He states his pain is always at least a 5 on a pain scale but is now worsened for several days and is now a 7-8 on a pain scale. He is been on oral narcotics for 10 years. He currently takes Percocet 10 4 times a day. He has multiple significant medical comorbidities including respiratory failure, history of myocardial infarction, status post coronary artery bypass grafts surgery on 2 occasions, chronic edema , etc. please see admission history of present illness for further details. We are asked to see secondary to a lumbar CT which revealed a compression fracture. He denies any fevers, chills, or significant radicular symptoms. Past Med Surg Social Fam HX - Past Medical History Medical history: atrial fibrillation, cardiomyopathy, CHF, COPD, coronary artery disease, diabetes, hyperlipidemia, hypertension, other Psychiatric history: no psych history - Past Surgical History Surgical History: angioplasty/stent, coronary bypass (CABG), pacemaker/AICD - Social History Smoking Status: Current every day smoker Smokeless Tobacco Status: No Alcohol use: none Drug use: none - Family History Mother Living Status: Father Living Status: Hx Family Cardiac Disorders: Yes (CHF, multiple heart attacks) Medications and Allergies Amiodarone [Cordarone] 200 mg PO DAILY 09/06/15 [History] Levothyroxine [Synthroid] 50 mcg PO HS 09/06/15 [History] Metoprolol Succinate 100 mg PO DAILY 09/06/15 [History] Nitroglycerin [Nitrostat] 0.4 mg SL Q5M PRN 09/06/15 [History] Oxygen 2 l NS AD 09/06/15 [History] Warfarin [Coumadin] 5 mg PO SUMOWEFRSA 09/06/15 [History] Warfarin [Coumadin] 7.5 mg PO TUTH 11/13/15 [History] Aspirin 81 mg PO DAILY 30 Days tab.chew 11/16/15 [Rx] Albuterol Sulfate [Albuterol Inhaler] 2 puff IH Q6HR PRN 03/14/16 [History] Torsemide 100 mg PO BID 03/14/16 [History] HYDROcodone/Acet 10/325 mg [[place] 10-325 mg] 1 tab PO BID PRN 12/19/16 [History] Tamsulosin [Flomax] 0.4 mg PO DAILY 12/19/16 [History] Cholecalciferol (D-3) [Vitamin D] 1,000 unit PO DAILY 12/20/16 [History] Lisinopril [Zestril] 5 mg PO DAILY tablet 12/21/16 [Rx] Acetaminophen [Tylenol] 650 mg PO Q6HR PRN tablet 12/28/16 [Rx] Fluticasone/Vilanterol [Breo Ellipta 100-25 Mcg INH] 1 each IH DAILY #1 blst.w.dev 12/28/16 [Rx] Nystatin [Nystatin Suspension] 100,000 units PO QID #120 ml 12/31/16 [Rx] Subcutaneous Insulin Pump [T:Slim] 1 each SQ AD 01/15/17 [History] Atorvastatin [Lipitor] 40 mg PO HS 01/18/17 [History] Ipratropium/Albuterol Neb [Duoneb] 3 ml IH [id number] PRN #30 inhsol 02/06/17 [Rx] OxyCODONE/APAP 10/325 [Percocet 10/325 MG] 1 each PO BID 02/16/17 [History] 3 Allergy/AdvReac Type Severity Reaction Status Date / Time metformin Allergy Hives Verified 12/19/16 10:37 pioglitazone [From Actos] Allergy Hives Verified 12/19/16 10:37 trazodone Allergy Hives Verified 12/19/16 10:37 Results - Labs Result Diagrams: 02/17/17 05:34 02/17/17 05:34 Labs: Abnormal lab results RDW 16.3 % (11.5-14.5) H 02/17/17 05:34 PT 33.6 Seconds (9.4-12.1) H 02/19/17 02:35 Sodium 133 mEq/L (136-145) L 02/17/17 05:34 Chloride 96 mEq/L (98-109) L 02/17/17 05:34 Glucose 166 mg/dL (70-99) H 02/17/17 05:34 POC Glucose 161 (58-89) H 02/18/17 11:59 Total Bilirubin 1.7 mg/dL (0.2-1.2) H 02/16/17 05:23 Troponin I 0.04 ng/mL (0-0.03) H* 02/15/17 21:14 B-Natriuretic Peptide 709 pg/mL (0-100) H 02/15/17 10:26 Albumin 2.9 g/dL (3.5-5.0) L 02/16/17 05:23 Globulin 3.8 g/dL (2.4-3.5) H 02/16/17 05:23 Albumin/Globulin Ratio 0.8 (1.1-2.2) L 02/16/17 05:23 All other labs normal. Consult Discharge Plan - Plan Referrals: Lilo Beltran MD [Primary Care Provider] - 03/20/17 10:30 am
[2017-02-19 11:53] VITALS: BP 96/62
--- NOTE | 2017-02-19 12:57 | Discharge Summary ---
Date of Encounter: 02/19/17 Time of Encounter: 12:00 - Discharge Diagnosis (1) Acute on chronic systolic (congestive) heart failure Priority: Primary Status: Ruled-out (2) Lumbar spondylosis Priority: Primary Status: Chronic Qualifiers: Spinal osteoarthritis complication: without myelopathy or radiculopathy Qualified Code(s): M47.816 - Spondylosis without myelopathy or radiculopathy, lumbar region (3) BPH (benign prostatic hyperplasia) Priority: Secondary Status: Chronic Qualifiers: Lower urinary tract symptom presence: unspecified whether lower urinary tract symptoms present Qualified Code(s): N40.0 - Benign prostatic hyperplasia without lower urinary tract symptoms (4) COPD (chronic obstructive pulmonary disease) Priority: Secondary Status: Chronic Qualifiers: COPD type: unspecified COPD Qualified Code(s): J44.9 - Chronic obstructive pulmonary disease, unspecified (5) Atrial fibrillation Priority: Secondary Status: Chronic Qualifiers: Atrial fibrillation type: chronic Qualified Code(s): I48.2 - Chronic atrial fibrillation (6) Hypothyroidism Priority: Secondary Status: Chronic Qualifiers: Hypothyroidism type: unspecified Qualified Code(s): E03.9 - Hypothyroidism , unspecified (7) CAD (coronary artery disease) Priority: Secondary Status: Chronic Qualifiers: Coronary Disease-Associated Artery/Lesion type: bypass graft [place] vs. transplanted heart: [place] heart Associated angina: without angina Qualified Code(s): I25.810 - Atherosclerosis of coronary artery bypass graft(s) without angina pectoris (8) DM (diabetes mellitus) Priority: Secondary Status: Chronic Qualifiers: Diabetes mellitus type: type 2 Diabetes mellitus complication status: with unspecified complications Diabetes mellitus intermediate accountant insulin use: with mcc use Qualified Code(s): E11.8 - Type 2 diabetes mellitus with unspecified complications (9) CKD (chronic kidney disease) Priority: Secondary Status: Chronic Qualifiers: Chronic kidney disease stage: stage 3 (moderate) Qualified Code(s): N18.3 - Chronic kidney disease, stage 3 (moderate) (10) Obesity, Class III, BMI 40-49.9 (morbid obesity) Priority: Secondary Status: Chronic (11) Tobacco abuse Priority: Secondary Status: Chronic (12) Chronic venous hypertension w/ulcer and inflammation involv both sides Priority: Secondary Status: Chronic (13) Compression fracture Priority: Primary Status: Acute - Discharge Medications Home Medications: Amiodarone [Cordarone] 200 mg PO DAILY 09/06/15 [History] Levothyroxine [Synthroid] 50 mcg PO HS 09/06/15 [History] Metoprolol Succinate 100 mg PO DAILY 09/06/15 [History] Nitroglycerin [Nitrostat] 0.4 mg SL Q5M PRN 09/06/15 [History] Oxygen 2 l NS AD 09/06/15 [History] Warfarin [Coumadin] 5 mg PO SUMOWEFRSA 09/06/15 [History] Warfarin [Coumadin] 7.5 mg PO TUTH 11/13/15 [History] Aspirin 81 mg PO DAILY 30 Days tab.chew 11/16/15 [Rx] Albuterol Sulfate [Albuterol Inhaler] 2 puff IH Q6HR PRN 03/14/16 [History] Torsemide 100 mg PO BID 03/14/16 [History] Tamsulosin [Flomax] 0.4 mg PO DAILY 12/19/16 [History] Cholecalciferol (D-3) [Vitamin D] 1,000 unit PO DAILY 12/20/16 [History] Acetaminophen [Tylenol] 650 mg PO Q6HR PRN tablet 12/28/16 [Rx] Fluticasone/Vilanterol [Breo Ellipta 100-25 Mcg INH] 1 each IH DAILY #1 blst.w.dev 12/28/16 [Rx] Nystatin [Nystatin Suspension] 100,000 units PO QID #120 ml 12/31/16 [Rx] Subcutaneous Insulin Pump [T:Slim] 1 each SQ AD 01/15/17 [History] Atorvastatin [Lipitor] 40 mg PO HS 01/18/17 [History] Ipratropium/Albuterol Neb [Duoneb] 3 ml IH [id number] PRN #30 inhsol 02/06/17 [Rx] OxyCODONE/APAP 10/325 [Percocet 10/325 MG] 1 each PO Q6H PRN #15 02/19/17 [Rx] Sennosides/Docusate Sodium [Senna Plus] 2 each PO BID tablet 02/19/17 [Rx] Allergies/Adverse Reactions: 3 Allergy/AdvReac Type Severity Reaction Status Date / Time metformin Allergy Hives Verified 12/19/16 10:37 pioglitazone [From Actos] Allergy Hives Verified 12/19/16 10:37 trazodone Allergy Hives Verified 12/19/16 10:37 Procedures/tests Complete & Pending: Procedures Performed prior 72 hours Category Date Time Status CT lumbar spine wo con [CT] Routine Cat Scan 02/16/17 17:25 Completed Date of admission: 02/16/17 12:29 Primary care physician: Lilo Beltran, Consults: 02/17/17 12:46 Consult to Orthopedic Surgery [CONS] Routine Consulting Provider: Lonnie Sifuentes Jr Reason for Consult: Acute on chronic back pain, L2 sup endplate compression fratcure Call Completed: Yes 02/18/17 11:19 Consult to Occupational Therapy [CONS] Routine Comment: Evaluate, develop and implement POC Reason for Consult: B/L leg swelling and chronic ulcers, CHF, COPD, deconditioning Consult to Physical Therapy [CONS] Routine Comment: Evaluate, develop and implement POC Reason for Consult: B/L leg swelling and chronic ulcers, CHF, COPD, deconditioning Discharging clinician: Patricia Roldan Anticipated date of discharge: 02/19/17 - Patient Status Disposition: Home Health Service Condition: Fair Functional capacity at discharge: independent ambulation Overall status at discharge: patient is progressing back to baseline - Discharge Instructions Instructions: Heart Failure (DC) Follow Up With: Lilo Beltran MD [Primary Care Provider] - 03/20/17 10:30 am Additional Instructions: F/up with Podiatry as scheduled F/up with in 3 months - Diet and Activity Activity: as per physical therapy, wear oxygen at all times Diet: diabetic diet, low fat, low cholesterol, low salt diet (fluid restriction to 2L/day) Hospital course: Mr. Lance is a 61 year old male with multiple medical problems who was admitted with dyspnea and leg swelling, with presumptive diagnosis of acute on chronic CHF. Patient has a known h/o- ischemic cardiomyopathy and was started on IV Lasix and urine output monitoring. His O2 requirements remained stable at baseline and he was not noted to be in overt heart failure, reported his main complaint to be acute on chronic low back pain. CT lumbar spine was done which showed superior end plate fracture at L2 and mild to moderate central canal stenosis at L2-3 and L4-5. Spine surgery was consulted and patient chose medical management with pain meds and was encouraged to f/up as outpatient with Spine surgery. He has chronic B/L leg wounds and oozing, for which he follows with Podiatry. His takes care of his daily wound care. Wound culture grew Stenotrophomonas and patient received IV antibiotics while in the hospital. However review of previous wound cultures showed similar organisms and this is thought to be colonization, no clinical signs of cellulitis or infection. PT/OT evaluation was done, recommended HHS, which patient has declined. He is medically stable for discharge. Time spent discussing smoking cessation with patient: 3 to 10 minutes - Time Spent with Patient Total time spent providing and/or coordinating discharge services: Greater than 30 minutes (45 min) - Constitutional Vitals: Temp Pulse Resp BP Pulse Ox 98.6 F 80 16 96/62 94 02/19/17 11:50 02/19/17 11:50 02/19/17 11:50 02/19/17 11:50 02/19/17 11:50 General appearance: Present: A&O X 3, morbidly obese, answers questions appropriately - Respiratory Respiratory exam: Present: CTAB. Absent: accessory muscle use, rales, rhonchi, wheezes
[2017-02-19] MEDS ORDERED: *HR* Warfarin 5 MG TABLET PO ONE (18:00)
== END 2017-02-19 16:25 | disposition home health service (06) | DRG 543 ==
LOC: 2NENU 10:04 → EMEROO 10:04 → SUATTDRO 12:15 → 2NENU 13:13
PROVIDERS: ADMIT Internal Medicine; ATTEND Internal Medicine